=== PATIENT | female | born 1930 | race Caucasian/White ===

== ENCOUNTER → 2016-08-06 | Outpatient (REF) | payer MEDICARE, MEDICAID ==
[~2016-08-06] MED LIST: /AMLO25TA OR; /MOM400 OR; ALBU83IN INH; AMLO5TAB2 PO; ANUS2.5C2 PR; CLAR10CA3 PO; CLAR1TAB2 PO; COLA50CA3 OR; DULC5TAB PO; ELIQ5TAB PO; FERR220E2 PO; FURO20TA2 PO; GABA-279 PO; GLYB5TAB5 PO; IBUP-1114 PO; IBUP200T2 PO; KLOR10TA21 PO; KLOR1TAB69 PO; LASI40TA PO; LEVA250T PO; LEVA500T PO; LEVO88TA2 PO; LEVO88TA3 PO; LIQUSOL OU; LISI2.5T3 PO; LYRI75CA PO; MEDR4PAK PO; METF1000 PO; METF500T PO; METO50TA2 PO; MYCOSTATIN TOP; OPTI0.5D5 OU; POTASSIUM CL ER PO; PREPOI PR; RISP1TAB3 OR; SENO8.6T10 PO; SENO8.6T9 PO; SPIR25TA2 PO; SYNT112T2 PO; TRAM50TA2 PO; TUMS500C PO; TYLE325T5 PO; ULTR50TA PO; VITA10002 PO; VITA100072 PO; VITAMIN B12 INJ; VITAMINB IM; WOME5TAB PO
--- NOTE | 2016-08-06 13:14 | REP ---
Portable chest x-ray: Single view. History: Cough. Comparison chest x-ray October 08, 2015. Findings: The patient is status post multilevel cervical spine fusion. There is mild linear fibrosis in the left base. Heart is mildly enlarged. The aorta is calcific and tortuous. No infiltrate is seen. Impression: Cardiomegaly. Mild linear fibrosis left base. Otherwise no acute disease. Status post cervical spine fusion. Signed by Sreedhar Gilmore MD 08/06/2016 03:05 P
== END ==
PROVIDERS: ATTEND Nurse Practitioner Family
DX: I51.7 Cardiomegaly (principal); J84.10 Pulmonary fibrosis, unspecified; R05 Cough

== ENCOUNTER 2016-08-14 22:03 | Emergency (ER) | payer MEDICARE, MEDICAID ==
--- NOTE | 2016-08-15 03:00 | REPUSA ---
CLINICAL HISTORY: Trauma. TECHNIQUE: Multiple axial CT images were obtained through the brain without IV contrast material. COMMENTS: There is normal configuration of sella turcica. There are no intra or extra-axial collections. There is no mass effect or midline shift. There is no evidence of hematoma formation. No hydrocephalus is p resent. The ventricles are symmetrical. No abnormal calcifications are present. There is diffuse age-appropriate cerebellar and cerebral atrophy with proportionally dilated ventricl es and cortical sulci. There are bilateral periventricular and subcortical white matter hypolucencies compatible with mild c hronic microvascular disease. Otherwise, no significant focal abnormalities are seen either in the posterior fossa or supratentoria l compartment. IMPRESSION: 1. Age-appropriate cerebellar and cerebral atrophy. 2. Mild chronic microvascular disease. 3. No evidence of acute intracranial pathology. Thank you for your kind referral of this patient.
--- NOTE | 2016-08-15 07:13 | EDDOCDS ---
Physician Documentation [facility] Name: Sharita Mckinnon Age: 86 yrs Sex: Female : 1930 Arrival Date: 08/14/2016 Time: 22:03 Bed TR2 Private MD: Emelia Disposition: 08/14/16 23:22 Discharged to Home/Self Care. Impression: Contusion of lower back and pelvis. - Condition is Stable. - Discharge Instructions: Fall Prevention and Home Safety, Contusion, [id number]. - Medication Reconciliation, Local Pharmacy Hours form. - Follow up: Emelia; When: 2 - 3 days; Reason: Recheck today's complaints. - Problem is new. - Symptoms have improved. - Notes: You were seen in the ED after a fall onto the buttocks. Pelvis Xray showed no acute findings. As you are feeling better and are walking without complaint you may return home to follow up with your primary doctor for recheck - please call to arrange to be seen. Be sure you are only using a walker that works properly. Return to the ED for any new or worse pain, headache, confusion, vomiting, chest pain, trouble breathing, abdominal pain or any other concerns. Historical: - Allergies: seasonAL; - Home Meds: 1. acetaminophen 325 mg Oral tab 1 tab every 6 hours as needed 2. albuterol sulfate 2.5 mg /3 mL (0.083 %) Inhl nebu twice a day 3. albuterol sulfate 2.5 mg /3 mL (0.083 %) Inhl nebu every 6 hours as needed 4. Vitamin B-12 1,000 mcg Oral tab daily 5. tramadol 50 mg Oral tab 1 tab twice a day 6. spironolactone 25 mg Oral tab 0.5 tab once daily 7. optive solution 1 drop Daily as needed 8. Motrin Oral 400 mg as needed 9. metoprolol tartrate 50 mg Oral tab 1 tab 2 times per day 10. metformin 1,000 mg Oral tab 1 tab 2 times per day 11. Lyrica 75 mg Oral 1 cap 3 times per day 12. levothyroxine 88 mcg Oral tab 1 tab once daily 13. Lasix Oral 60 mg once daily 14. ferrous sulfate 220 mg (44 mg iron)/5 mL Oral soln daily 15. Eliquis 5 mg oral tab 1 tab 2 times per day 16. Claritin 10 mg Oral tab 1 tab once daily 17. Anusol Rectal 2.5 % three times per day as needed - PMHx: Diabetes - NIDDM: controlled; Hypertension; neuropathy; - Social history: Smoking status: Patient states was never smoker of tobacco. Race: White, Ethnicity: Not or No barriers to communication noted, Preferred Language: Jordanian. - : The pt / caregiver states he / she is on anticoagulants: Xarelto Home medication list is obtained from the facility MAR. - Exposure Risk Screening:: None identified. Vital Signs: 08/14 22:25 BP 135 / 60; Pulse 76; Resp 18; Temp 97.9(TE); Pulse Ox 97% on R/A; Weight 76.2 kg / nb2 167.99 lbs (R); Height 5 ft. 4 in. (162.56 cm) (R); Pain 0/10; 23:54 BP 117 / 51; Pulse 75; Resp 18; Temp 98.7(TE); Pulse Ox 95% on R/A; Pain 0/10; mdr 08/15 04:50 BP 136 / 60; Pulse 71; Resp 18; Temp 99.2(TE); Pulse Ox 96% on R/A; Pain 0/10; mdr 08/14 22:25 Body Mass Index 28.84 (76.20 kg, 162.56 cm) nb2 MDM: 08/14 22:23 Acetaminophen Tablet 650 mg PO once ordered. br1 22:25 Pelvis Ordered. EDMS 23:11 Ambulate Patient to Assess Patient Safety ordered. br1 23:23 Financial registration complete. zo 23:23 [facility] Payment Agreement was scanned into [employer] and attached to record. zo 08/15 02:12 CT Head Without Contrast Ordered. EDMS Administered Medications: 08/14 22:40 Drug: Acetaminophen 650 mg [acetaminophen 325 mg tablet (2 tabs)] Route: PO; cf2 Signatures: Dispatcher [employer] EDMS Nithin Quintero Brian, MD MD br1 Sana Santiago RN RN sls1 Roopa Braxton RN RN cf2 The chart was reviewed and I authenticate all verbal orders and agree with the evaluation and treatment provided.Attachments: 23:23 [facility] Payment Agreement zo MTDD
--- NOTE | 2016-08-15 07:13 | EDDOCDS ---
Nurse's Notes [facility] Name: Sharita Mckinnon Age: 86 yrs Sex: Female : 1930 Arrival Date: 08/14/2016 Time: 22:03 Bed TR2 Private MD: Emelia Diagnosis: Contusion of lower back and pelvis Presentation: 08/14 22:17 Presenting complaint: Patient states: "my walker got stuck and I fell. My butt and arms cf2 hurt". Denies head injury, moves all extremities. Presenting complaint: EMS states: Stable transport from Assisted living. Adult Sepsis Screening: The patient does not have new or worsening altered mentation. Patient's respiratory rate is less than 22. Systolic blood pressure is greater than 100. Patient has a qSOFA score of 0- Negative Sepsis Screen. Suicide/Homicide risk assessment- the patient denies having any suicidal and/or homicidal ideations and does not present with any other emotional, behavioral or mental health complaints. 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 Transition of care: patient was received from [facility]-assisted. 22:17 Acuity: KEATON Level 4 cf2 22:17 Method Of Arrival: Ambulance cf2 Triage Assessment: 22:20 General: Appears in no apparent distress, comfortable, Behavior is appropriate for age, cf2 cooperative. Pain: Location: buttocks. The patient is triaged at the bedside. See Assessment in Nurses Notes section of ED record. Musculoskeletal: No deficits noted. Historical: - Allergies: seasonAL; - Home Meds: 1. acetaminophen 325 mg Oral tab 1 tab every 6 hours as needed 2. albuterol sulfate 2.5 mg /3 mL (0.083 %) Inhl nebu twice a day 3. albuterol sulfate 2.5 mg /3 mL (0.083 %) Inhl nebu every 6 hours as needed 4. Vitamin B-12 1,000 mcg Oral tab daily 5. tramadol 50 mg Oral tab 1 tab twice a day 6. spironolactone 25 mg Oral tab 0.5 tab once daily 7. optive solution 1 drop Daily as needed 8. Motrin Oral 400 mg as needed 9. metoprolol tartrate 50 mg Oral tab 1 tab 2 times per day 10. metformin 1,000 mg Oral tab 1 tab 2 times per day 11. Lyrica 75 mg Oral 1 cap 3 times per day 12. levothyroxine 88 mcg Oral tab 1 tab once daily 13. Lasix Oral 60 mg once daily 14. ferrous sulfate 220 mg (44 mg iron)/5 mL Oral soln daily 15. Eliquis 5 mg oral tab 1 tab 2 times per day 16. Claritin 10 mg Oral tab 1 tab once daily 17. Anusol Rectal 2.5 % three times per day as needed - PMHx: Diabetes - NIDDM: controlled; Hypertension; neuropathy; - Social history: Smoking status: Patient states was never smoker of tobacco. Race: White, Ethnicity: Not or No barriers to communication noted, Preferred Language: Urdu. - : The pt / caregiver states he / she is on anticoagulants: Xarelto Home medication list is obtained from the facility MAR. - Exposure Risk Screening:: None identified. 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 Spoke with ED physician aware of requests, pt to have cat scan,. Vital Signs: 08/14 22:25 BP 135 / 60; Pulse 76; Resp 18; Temp 97.9(TE); Pulse Ox 97% on R/A; Weight 76.2 kg (R); nb2 Height 5 ft. 4 in. (162.56 cm) (R); Pain 0/10; 23:54 BP 117 / 51; Pulse 75; Resp 18; Temp 98.7(TE); Pulse Ox 95% on R/A; Pain 0/10; mdr 08/15 04:50 BP 136 / 60; Pulse 71; Resp 18; Temp 99.2(TE); Pulse Ox 96% on R/A; Pain 0/10; mdr 08/14 22:25 Body Mass Index 28.84 (76.20 kg, 162.56 cm) nb2 Vitals: 08/14 22:20 Log In Time N/A - ambulance arrival. cf2 ED Course: 22:03 Patient visited by Gloria Armstrong, Construction Technology Instructor. [facility] 22:03 Patient moved to 14 jl 22:04 Emelia is Private Physician. jlm 22:12 London Hinojosa MD is Attending Physician. br1 22:16 Roopa Braxton,CHRIS is Primary Nurse. cf2 22:16 Patient visited by Roopa Braxotn RN. cf2 22:17 Patient visited by Roopa Braxton RN. cf2 22:19 Triage Initiated cf2 22:22 Patient visited by London Hinojosa MD. br1 22:25 Placed in gown. Bed in low position. Call light in reach. Side rails up X2. Cardiac nb2 monitor on. Pulse ox on. NIBP on. 22:26 Patient visited by Medina Denny. nb2 23:18 Patient visited by London Hinojosa MD. br1 23:20 Emelia is Referral Physician. br1 23:23 [facility] Payment Agreement was scanned into [employer] and attached to record. zo 23:54 Patient visited by Nathaniel Salazar PCA. mdr 02 01:32 Patient visited by Roopa Braxton RN. cf2 03:32 CT Head Without Contrast Returned. EDMS 03:37 Patient visited by Roopa Braxton RN. cf2 05:01 Patient moved to [facility] mdr 05:08 Patient visited by Nathaniel Salazar PCA. mdr Administered Medications: 08/14 22:40 Drug: Acetaminophen 650 mg [acetaminophen 325 mg tablet (2 tabs)] Route: PO; cf2 Order Results: Radiology Order: CT Head Without Contrast Test: CT Head Without Contrast REASON FOR EXAMINATION: Trauma; ; CLINICAL HISTORY: Trauma.; TECHNIQUE: Multiple axial CT images were obtained through the brain without IV contrast material.; COMMENTS:; There is normal configuration of sella turcica. There are no intra or extra-axial collections. There; is no mass effect or midline shift. There is no evidence of hematoma formation. No hydrocephalus is p; resent. The ventricles are symmetrical. No abnormal calcifications are present.; There is diffuse age-appropriate cerebellar and cerebral atrophy with proportionally dilated ventricl; es and cortical sulci.; There are bilateral periventricular and subcortical white matter hypolucencies compatible with mild c; hronic microvascular disease.; Otherwise, no significant focal abnormalities are seen either in the posterior fossa or supratentoria; l compartment.; IMPRESSION:; 1. Age-appropriate cerebellar and cerebral atrophy.; 2. Mild chronic microvascular disease.; 3. No evidence of acute intracranial pathology.; Thank you for your kind referral of this patient.; ; ; Outcome: 23:22 Discharge ordered by Provider. br1 08/15 04:56 Discharge Assessment: Patient awake, alert and oriented x 3. No cognitive and/or sls1 functional deficits noted. Patient verbalized understanding of disposition instructions. patient administered narcotics - no. The following High Risk Discharge criteria are identified: None. Discharged to jail. Transfer form completed. Condition: stable. Discharge instructions given to patient, jail, Instructed on discharge instructions, follow up and referral plans. Demonstrated understanding of instructions, Pt was receptive of discharge instructions/ teaching. CT Study completed. Property :Personal belongings accompany Pt. 07:12 Patient left the ED. sls1 Signatures: Dispatcher [employer] EDMS Nithin Quintero Brian, MD MD br1 Sana Santiago RN RN sls1 Gloria Armstrong, Construction Technology Instructor Unit Nathaniel Roth, CARLOS EDUARDO LANG PATH THERAPIST Roopa Tena,RN RN cf2 Medina Denny2 MTDJohn
--- NOTE | 2016-08-15 07:57 | REP ---
Clinical: Trauma. Technique: Single AP view of the pelvis. Findings: Diffuse age related degenerative changes are appreciated. No acute fracture or dislocation. Surrounding soft tissues unremarkable. Impression: Age-related changes. No acute fracture or dislocation. Signed by Rajiv Posadas MD 08/15/2016 07:48 A
--- NOTE | 2016-08-17 08:13 | EDDOCDS ---
Nurse's Notes [facility] Name: Sharita Mckinnon Age: 86 yrs Sex: Female : 1930 Arrival Date: 08/14/2016 Time: 22:03 Bed TR2 Private MD: Emelia Diagnosis: Contusion of lower back and pelvis Presentation: 08/14 22:17 Presenting complaint: Patient states: "my walker got stuck and I fell. My butt and arms cf2 hurt". Denies head injury, moves all extremities. Presenting complaint: EMS states: Stable transport from Assisted living. Adult Sepsis Screening: The patient does not have new or worsening altered mentation. Patient's respiratory rate is less than 22. Systolic blood pressure is greater than 100. Patient has a qSOFA score of 0- Negative Sepsis Screen. Suicide/Homicide risk assessment- the patient denies having any suicidal and/or homicidal ideations and does not present with any other emotional, behavioral or mental health complaints. 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 Transition of care: patient was received from [facility]-assisted. 22:17 Acuity: KEATON Level 4 cf2 22:17 Method Of Arrival: Ambulance cf2 Triage Assessment: 22:20 General: Appears in no apparent distress, comfortable, Behavior is appropriate for age, cf2 cooperative. Pain: Location: buttocks. The patient is triaged at the bedside. See Assessment in Nurses Notes section of ED record. Musculoskeletal: No deficits noted. Historical: - Allergies: seasonAL; - Home Meds: 1. acetaminophen 325 mg Oral tab 1 tab every 6 hours as needed 2. albuterol sulfate 2.5 mg /3 mL (0.083 %) Inhl nebu twice a day 3. albuterol sulfate 2.5 mg /3 mL (0.083 %) Inhl nebu every 6 hours as needed 4. Vitamin B-12 1,000 mcg Oral tab daily 5. tramadol 50 mg Oral tab 1 tab twice a day 6. spironolactone 25 mg Oral tab 0.5 tab once daily 7. optive solution 1 drop Daily as needed 8. Motrin Oral 400 mg as needed 9. metoprolol tartrate 50 mg Oral tab 1 tab 2 times per day 10. metformin 1,000 mg Oral tab 1 tab 2 times per day 11. Lyrica 75 mg Oral 1 cap 3 times per day 12. levothyroxine 88 mcg Oral tab 1 tab once daily 13. Lasix Oral 60 mg once daily 14. ferrous sulfate 220 mg (44 mg iron)/5 mL Oral soln daily 15. Eliquis 5 mg oral tab 1 tab 2 times per day 16. Claritin 10 mg Oral tab 1 tab once daily 17. Anusol Rectal 2.5 % three times per day as needed - PMHx: Diabetes - NIDDM: controlled; Hypertension; neuropathy; - Social history: Smoking status: Patient states was never smoker of tobacco. Race: White, Ethnicity: Not or No barriers to communication noted, Preferred Language: Wolof. - : The pt / caregiver states he / she is on anticoagulants: Xarelto Home medication list is obtained from the facility MAR. - Exposure Risk Screening:: None identified. 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 Spoke with ED physician aware of requests, pt to have cat scan,. Vital Signs: 08/14 22:25 BP 135 / 60; Pulse 76; Resp 18; Temp 97.9(TE); Pulse Ox 97% on R/A; Weight 76.2 kg (R); nb2 Height 5 ft. 4 in. (162.56 cm) (R); Pain 0/10; 23:54 BP 117 / 51; Pulse 75; Resp 18; Temp 98.7(TE); Pulse Ox 95% on R/A; Pain 0/10; mdr 08/15 04:50 BP 136 / 60; Pulse 71; Resp 18; Temp 99.2(TE); Pulse Ox 96% on R/A; Pain 0/10; mdr 08/14 22:25 Body Mass Index 28.84 (76.20 kg, 162.56 cm) nb2 Vitals: 08/14 22:20 Log In Time N/A - ambulance arrival. cf2 ED Course: 22:03 Patient visited by Gloria Armstrong, Permit Agent. [facility] 22:03 Patient moved to 14 jl 22:04 Emelia is Private Physician. jlm 22:12 London Hinojosa MD is Attending Physician. br1 22:16 Roopa Braxton,CHRIS is Primary Nurse. cf2 22:16 Patient visited by Roopa Braxton RN. cf2 22:17 Patient visited by Roopa Braxton RN. cf2 22:19 Triage Initiated cf2 22:22 Patient visited by London Hinojosa MD. br1 22:25 Placed in gown. Bed in low position. Call light in reach. Side rails up X2. Cardiac nb2 monitor on. Pulse ox on. NIBP on. 22:26 Patient visited by Medina Denny. nb2 23:18 Patient visited by London Hinojosa MD. br1 23:20 Emelia is Referral Physician. br1 23:23 [facility] Payment Agreement was scanned into [employer] and attached to record. zo 23:54 Patient visited by Nathaniel Salazar PCA. mdr 08/15 01:32 Patient visited by Roopa Braxton RN. cf2 03:32 CT Head Without Contrast Returned. EDMS 03:37 Patient visited by Roopa Braxton RN. cf2 05:01 Patient moved to TR2 mdr 05:08 Patient visited by Nathaniel Salazar PCA. mdr 08:16 Pelvis Returned. EDMS 11:27 T-Sheet-- Draft Copy was scanned into [employer] and attached to record. gb 15:11 PCR was scanned into [employer] and attached to record. gb Administered Medications: 08/14 22:40 Drug: Acetaminophen 650 mg [acetaminophen 325 mg tablet (2 tabs)] Route: PO; cf2 Order Results: Radiology Order: Pelvis Test: Pelvis REASON FOR EXAMINATION: Trauma; Clinical: Trauma.; ; Technique: Single AP view of the pelvis.; ; Findings:; Diffuse age related degenerative changes are appreciated. No acute fracture or; dislocation. Surrounding soft tissues unremarkable.; ; Impression:; Age-related changes. No acute fracture or dislocation.; ; ; Signed by; Rajiv Posadas MD 08/15/2016 07:48 A; Radiology Order: CT Head Without Contrast Test: CT Head Without Contrast REASON FOR EXAMINATION: Trauma; ; CLINICAL HISTORY: Trauma.; TECHNIQUE: Multiple axial CT images were obtained through the brain without IV contrast material.; COMMENTS:; There is normal configuration of sella turcica. There are no intra or extra-axial collections. There; is no mass effect or midline shift. There is no evidence of hematoma formation. No hydrocephalus is p; resent. The ventricles are symmetrical. No abnormal calcifications are present.; There is diffuse age-appropriate cerebellar and cerebral atrophy with proportionally dilated ventricl; es and cortical sulci.; There are bilateral periventricular and subcortical white matter hypolucencies compatible with mild c; hronic microvascular disease.; Otherwise, no significant focal abnormalities are seen either in the posterior fossa or supratentoria; l compartment.; IMPRESSION:; 1. Age-appropriate cerebellar and cerebral atrophy.; 2. Mild chronic microvascular disease.; 3. No evidence of acute intracranial pathology.; Thank you for your kind referral of this patient.; ; ; Outcome: 23:22 Discharge ordered by Provider. br1 08/15 04:56 Discharge Assessment: Patient awake, alert and oriented x 3. No cognitive and/or sls1 functional deficits noted. Patient verbalized understanding of disposition instructions. patient administered narcotics - no. The following High Risk Discharge criteria are identified: None. Discharged to [facility]. Transfer form completed. Condition: stable. Discharge instructions given to patient, [facility], Instructed on discharge instructions, follow up and referral plans. Demonstrated understanding of instructions, Pt was receptive of discharge instructions/ teaching. CT Study completed. Property :Personal belongings accompany Pt. 07:12 Patient left the ED. sls1 Signatures: Dispatcher [employer] EDMS Tata Beard, Reg Reg Nithin Leahy Brian, MD MD br1 Sana Santiago, RN RN sls1 Gloria Armstrong, Permit Agent Unit Nathaniel Roth, CARLOS EDUARDO PHYTOPATHOLOGY TEACHER Roopa Tena,RN RN cf2 Medina Denny2 Chart Complete MTDD
--- NOTE | 2016-08-17 08:13 | EDDOCDS ---
Physician Documentation [facility] Name: Sharita Mckinnon Age: 86 yrs Sex: Female : 1930 Arrival Date: 08/14/2016 Time: 22:03 Bed TR2 Private MD: Emelia Disposition: 08/14/16 23:22 Discharged to Home/Self Care. Impression: Contusion of lower back and pelvis. - Condition is Stable. - Discharge Instructions: Fall Prevention and Home Safety, Contusion, [id number]. - Medication Reconciliation, Local Pharmacy Hours form. - Follow up: Emelia; When: 2 - 3 days; Reason: Recheck today's complaints. - Problem is new. - Symptoms have improved. - Notes: You were seen in the ED after a fall onto the buttocks. Pelvis Xray showed no acute findings. As you are feeling better and are walking without complaint you may return home to follow up with your primary doctor for recheck - please call to arrange to be seen. Be sure you are only using a walker that works properly. Return to the ED for any new or worse pain, headache, confusion, vomiting, chest pain, trouble breathing, abdominal pain or any other concerns. Historical: - Allergies: seasonAL; - Home Meds: 1. acetaminophen 325 mg Oral tab 1 tab every 6 hours as needed 2. albuterol sulfate 2.5 mg /3 mL (0.083 %) Inhl nebu twice a day 3. albuterol sulfate 2.5 mg /3 mL (0.083 %) Inhl nebu every 6 hours as needed 4. Vitamin B-12 1,000 mcg Oral tab daily 5. tramadol 50 mg Oral tab 1 tab twice a day 6. spironolactone 25 mg Oral tab 0.5 tab once daily 7. optive solution 1 drop Daily as needed 8. Motrin Oral 400 mg as needed 9. metoprolol tartrate 50 mg Oral tab 1 tab 2 times per day 10. metformin 1,000 mg Oral tab 1 tab 2 times per day 11. Lyrica 75 mg Oral 1 cap 3 times per day 12. levothyroxine 88 mcg Oral tab 1 tab once daily 13. Lasix Oral 60 mg once daily 14. ferrous sulfate 220 mg (44 mg iron)/5 mL Oral soln daily 15. Eliquis 5 mg oral tab 1 tab 2 times per day 16. Claritin 10 mg Oral tab 1 tab once daily 17. Anusol Rectal 2.5 % three times per day as needed - PMHx: Diabetes - NIDDM: controlled; Hypertension; neuropathy; - Social history: Smoking status: Patient states was never smoker of tobacco. Race: White, Ethnicity: Not or No barriers to communication noted, Preferred Language: Namibian. - : The pt / caregiver states he / she is on anticoagulants: Xarelto Home medication list is obtained from the facility MAR. - Exposure Risk Screening:: None identified. Vital Signs: 08/14 22:25 BP 135 / 60; Pulse 76; Resp 18; Temp 97.9(TE); Pulse Ox 97% on R/A; Weight 76.2 kg / nb2 167.99 lbs (R); Height 5 ft. 4 in. (162.56 cm) (R); Pain 0/10; 23:54 BP 117 / 51; Pulse 75; Resp 18; Temp 98.7(TE); Pulse Ox 95% on R/A; Pain 0/10; mdr 08/15 04:50 BP 136 / 60; Pulse 71; Resp 18; Temp 99.2(TE); Pulse Ox 96% on R/A; Pain 0/10; mdr 08/14 22:25 Body Mass Index 28.84 (76.20 kg, 162.56 cm) nb2 MDM: 08/14 22:23 Acetaminophen Tablet 650 mg PO once ordered. br1 22:25 Pelvis Ordered. EDMS 23:11 Ambulate Patient to Assess Patient Safety ordered. br1 23:23 Financial registration complete. zo 23:23 [facility] Payment Agreement was scanned into [employer] and attached to record. zo 08/15 02:12 CT Head Without Contrast Ordered. EDMS 11:27 T-Sheet-- Draft Copy was scanned into [employer] and attached to record. gb 15:11 PCR was scanned into [employer] and attached to record. gb Administered Medications: 08/14 22:40 Drug: Acetaminophen 650 mg [acetaminophen 325 mg tablet (2 tabs)] Route: PO; cf2 Signatures: Dispatcher [employer] EDMS Tata Beard, Nithin Claudio Brian, MD MD br1 Sana Santiago RN RN sls1 Roopa BraxtonRN RN cf2 The chart was reviewed and I authenticate all verbal orders and agree with the evaluation and treatment provided.Attachments: 23:23 [facility] Payment Agreement zo 08/15 11:27 T-Sheet-- Draft Copy gb Chart Complete MTDD
--- NOTE | 2016-08-17 08:13 | EDDOCDS ---
Physician Documentation [facility] Name: Sharita Mckinnon Age: 86 yrs Sex: Female : 1930 Arrival Date: 08/14/2016 Time: 22:03 Bed TR2 Private MD: Emelia Disposition: 08/14/16 23:22 Discharged to Home/Self Care. Impression: Contusion of lower back and pelvis. - Condition is Stable. - Discharge Instructions: Fall Prevention and Home Safety, Contusion, [id number]. - Medication Reconciliation, Local Pharmacy Hours form. - Follow up: Emelia; When: 2 - 3 days; Reason: Recheck today's complaints. - Problem is new. - Symptoms have improved. - Notes: You were seen in the ED after a fall onto the buttocks. Pelvis Xray showed no acute findings. As you are feeling better and are walking without complaint you may return home to follow up with your primary doctor for recheck - please call to arrange to be seen. Be sure you are only using a walker that works properly. Return to the ED for any new or worse pain, headache, confusion, vomiting, chest pain, trouble breathing, abdominal pain or any other concerns. Historical: - Allergies: seasonAL; - Home Meds: 1. acetaminophen 325 mg Oral tab 1 tab every 6 hours as needed 2. albuterol sulfate 2.5 mg /3 mL (0.083 %) Inhl nebu twice a day 3. albuterol sulfate 2.5 mg /3 mL (0.083 %) Inhl nebu every 6 hours as needed 4. Vitamin B-12 1,000 mcg Oral tab daily 5. tramadol 50 mg Oral tab 1 tab twice a day 6. spironolactone 25 mg Oral tab 0.5 tab once daily 7. optive solution 1 drop Daily as needed 8. Motrin Oral 400 mg as needed 9. metoprolol tartrate 50 mg Oral tab 1 tab 2 times per day 10. metformin 1,000 mg Oral tab 1 tab 2 times per day 11. Lyrica 75 mg Oral 1 cap 3 times per day 12. levothyroxine 88 mcg Oral tab 1 tab once daily 13. Lasix Oral 60 mg once daily 14. ferrous sulfate 220 mg (44 mg iron)/5 mL Oral soln daily 15. Eliquis 5 mg oral tab 1 tab 2 times per day 16. Claritin 10 mg Oral tab 1 tab once daily 17. Anusol Rectal 2.5 % three times per day as needed - PMHx: Diabetes - NIDDM: controlled; Hypertension; neuropathy; - Social history: Smoking status: Patient states was never smoker of tobacco. Race: White, Ethnicity: Not or No barriers to communication noted, Preferred Language: Citizen Of [place]. - : The pt / caregiver states he / she is on anticoagulants: Xarelto Home medication list is obtained from the facility MAR. - Exposure Risk Screening:: None identified. Vital Signs: 08/14 22:25 BP 135 / 60; Pulse 76; Resp 18; Temp 97.9(TE); Pulse Ox 97% on R/A; Weight 76.2 kg / nb2 167.99 lbs (R); Height 5 ft. 4 in. (162.56 cm) (R); Pain 0/10; 23:54 BP 117 / 51; Pulse 75; Resp 18; Temp 98.7(TE); Pulse Ox 95% on R/A; Pain 0/10; mdr 08/15 04:50 BP 136 / 60; Pulse 71; Resp 18; Temp 99.2(TE); Pulse Ox 96% on R/A; Pain 0/10; mdr 08/14 22:25 Body Mass Index 28.84 (76.20 kg, 162.56 cm) nb2 MDM: 08/14 22:23 Acetaminophen Tablet 650 mg PO once ordered. br1 22:25 Pelvis Ordered. EDMS 23:11 Ambulate Patient to Assess Patient Safety ordered. br1 23:23 Financial registration complete. zo 23:23 [facility] Payment Agreement was scanned into [employer] and attached to record. zo 08/15 02:12 CT Head Without Contrast Ordered. EDMS 11:27 T-Sheet-- Draft Copy was scanned into [employer] and attached to record. gb 15:11 PCR was scanned into [employer] and attached to record. gb Administered Medications: 08/14 22:40 Drug: Acetaminophen 650 mg [acetaminophen 325 mg tablet (2 tabs)] Route: PO; cf2 Signatures: Dispatcher [employer] EDMS Tata Beard, Nithin Claudio Brian, MD MD br1 Sana Santiago RN RN [id number] Roopa BraxtonRN RN cf2 The chart was reviewed and I authenticate all verbal orders and agree with the evaluation and treatment provided.Attachments: 23:23 [facility] Payment Agreement zo 08/15 11:27 T-Sheet-- Draft Copy gb Chart Complete MTDD
== END 2016-08-15 07:12 | disposition home or self-care (01) ==
LOC: M ED 22:03
DX: S30.0XXA Contusion of lower back and pelvis, initial encounter (principal); W19.XXXA Unspecified fall, initial encounter; Y92.129 Unspecified place in nursing home as the place of occurrence of the external cause; Y93.01 Activity, walking, marching and hiking; Y99.8 Other external cause status; E11.42 Type 2 diabetes mellitus with diabetic polyneuropathy; I10 Essential (primary) hypertension; Z79.899 Other long term (current) drug therapy; Z79.01 Long term (current) use of anticoagulants; Z79.84 Long term (current) use of oral hypoglycemic drugs; J30.9 Allergic rhinitis, unspecified

== ENCOUNTER 2016-08-28 11:55 | Inpatient (IN) | payer MEDICARE, MEDICAID ==
[~2016-08-28] VITALS: Ht 162.6 cm; Wt 78.0 kg
[2016-08-28] MEDS ORDERED: XARE20TA PO (12:20)
[2016-08-28] MEDS ORDERED: TYLE325T5 PO (12:24)
[2016-08-28] MEDS ORDERED: VITA10002 PO (12:27)
--- NOTE | 2016-08-28 13:18 | REP ---
CHEST, TWO VIEWS: Two views of the chest are performed and compared to prior study of 10/08/2015. There is mild liner fibroatelectatic change in each lung base without evidence of acute infiltrate. There is mild cardiomegaly. There is mild pulmonary venous hypertension. There is some calcification of the thoracic aorta. The mediastinal silhouette is unremarkable. There are mild degenerative changes of the spine. IMPRESSION: Cardiomegaly. Pulmonary venous hypertension. Bibasilar fibroatelectatic change without evidence of acute infiltrate. Signed by Guanaco Montejo MD 08/28/2016 03:55 P
[2016-08-28 13:36] LABS: ALBUMIN 3.4 GM/DL (3.2-5.2); ALBUMIN/GLOBULIN RATIO 0.77 (1.00-1.93); ALKALINE PHOSPHATASE 38 U/L (45-117); ALT/SGPT 11 U/L (12-78); ANION GAP 9 MEQ/L (8-16); AST/SGOT 12 U/L (15-37); BILIRUBIN,TOTAL 0.2 MG/DL (0.2-1.0); BLOOD UREA NITROGEN 40 MG/DL (7-18); CALCIUM LEVEL 8.9 MG/DL (8.8-10.2); CARBON DIOXIDE LEVEL 29 MEQ/L (21-32); CHLORIDE LEVEL 96 MEQ/L (98-107); CREATININE FOR GFR 1.23 MG/DL (0.55-1.02); GLOMERULAR FILTRATION RATE 43.9 (>32); GLUCOSE, FASTING 127 MG/DL (83-110); POTASSIUM SERUM 4.2 MEQ/L (3.5-5.1); SODIUM LEVEL 134 MEQ/L (136-145); T UPTAKE 35 % (30-39); TOTAL PROTEIN 7.8 GM/DL (6.4-8.2)
[2016-08-28 14:00] LABS: BASO # 0.1 K/mm3 (0.0-0.2); BASO % 0.7 % (0.0-1.0); EOS # 0.2 K/mm3 (0.0-0.50); EOS % 2.3 % (0.0-3.0); LARGE UNSTAINED CELL # 0.6 K/mm3 (0.0-0.4); LARGE UNSTAINED CELL % 6.1 % (0.0-4.0); LYMPH # 2.1 K/mm3 (1.5-4.5); LYMPH % 20.1 % (24.0-44.0); MEAN CORPUSCULAR HGB CONC 26.6 g/dl (32.0-36.5); MEAN CORPUSCULAR VOLUME 71.5 fl (80.0-96.0); MONO # 0.8 K/mm3 (0.0-0.8); MONO % 7.3 % (0.0-5.0); NEUTROPHILS # 6.7 K/mm3 (1.8-7.7); NEUTROPHILS % 63.5 % (36.0-66.0); PLATELET COUNT, AUTOMATED 247 k/mm3 (150-450); RED CELL DISTRIBUTION WIDTH 17.2 % (11.5-14.5)
[2016-08-28 14:10] LABS: ADD MORPHOLOGY? YES
[2016-08-28 14:20] LABS: WHITE BLOOD COUNT 10.6 K/mm3 (4.0-10.0)
[2016-08-28 14:35] LABS: ANISOCYTOSIS 1+; HYPOCHROMASIA 3+; MICROCYTOSIS 2+
[2016-08-28] MEDS ORDERED: FUROSEMIDE 20 MG/2 ML VIAL (J1940) IV ONE (15:15)
[2016-08-28] MEDS ORDERED: FUROSEMIDE 20 MG/2 ML VIAL (J1940) IV SCH (15:15)
[2016-08-28] MEDS ORDERED: ARTISOL2 OU (15:23)
[2016-08-28] MEDS ORDERED: ZOFR20TA PO (15:23)
[2016-08-28] MEDS ORDERED: KETO2CR TOP (15:23)
[2016-08-28] MEDS ORDERED: DOCU100C PO (15:23)
[2016-08-28] MEDS ORDERED: LYRI100C10 PO (15:23)
[2016-08-28] MEDS ORDERED: ANUS2.5C2 PR (15:34)
[2016-08-28] MEDS ORDERED: DULC5TAB PO (15:34)
[2016-08-28] MEDS ORDERED: ACET-654 PO (15:34)
[2016-08-28] MEDS ORDERED: ALBU83IN INH (15:34)
[2016-08-28] MEDS ORDERED: FURO40TA2 PO (15:34)
[2016-08-28 16:39] LABS: FERRITIN 2 NG/ML (8-252); PERCENT SATURATION 4.8 % (13.2-37.4); TOTAL IRON BINDING CAPACITY 478 UG/DL (250-450)
[2016-08-28 16:45] LABS: FOLATE 13.3 NG/ML; RETICULOCYTE ABSOLUTE ADVIA212 85 x10(9)/L (17-77); VITAMIN B12 LEVEL 844 PG/ML
[2016-08-28 16:47] LABS: REASON FOR REVIEW COMPREHENSIVE REVIEW
[2016-08-28] MEDS ORDERED: ONDANSETRON 4 MG TAB (S0181) PO PRN (18:30)
[2016-08-28] MEDS ORDERED: DOCUSATE SODIUM 100 MG CAP PO PRN (18:30)
[2016-08-28] MEDS ORDERED: BISACODYL 5 MG TAB PO PRN (18:30)
[2016-08-28] MEDS ORDERED: ACETAMINOPHEN 325 MG TAB PO PRN (18:30)
[2016-08-28] MEDS ORDERED: ANUSOL HC CREAM 30GM PR PRN (18:30)
--- NOTE | 2016-08-28 18:48 | HPEPDOC ---
Medical History and Physical Date of Admission Aug 28, 2016 at 18:26 History and Physical PRIMARY CARE PROVIDER: Dr. Kapoor CHIEF COMPLAINT: Dizziness HISTORY OF PRESENT ILLNESS: Obtained from patient's daughter Patient is a 86-year-old female who presents to emergency department with chief complaint of dizziness. Patient's daughter says that approximately 2-3 weeks ago patient had a bad upper respiratory infection, they suspect influenza. Since that time patient has had a increased and worsening dizziness, swelling, appearing pale and feeling weak. She says patient has had recent falls using her walker. She reports last night the patient needed assistance getting into bed, this is a change from her baseline. Patient has a history of bleeding hemorrhoids but none reported in the last month or so. No reported bright red or dark tarry bowel movements, vaginal bleeding. Rectal examination performed by emergency department showed small external hemorrhoid which was not bleeding. Guaiac negative ALLERGIES: Seasonal, no medical allergies PAST MEDICAL HISTORY: Spinal stenosis, diabetes mellitus, hypertension, COPD, hypothyroidism, atrial fibrillation, hemorrhoids, neuropathy PAST SURGICAL HISTORY: Hysterectomy, back surgery SOCIAL HISTORY: Patient lives at [facility]. If she is a former smoker, quit 13 years ago, smoked for approximately 60 years prior to quitting. Denies alcohol or recreational drug use CODE STATUS: DNR/DNI REVIEW OF SYSTEMS: Constitutional: denies fevers, chills, night sweats HEENT: Head: Positive for dizziness, lightheadedness. Eyes: denies blurry vision , double vision. Ears: Positive for chronic hearing loss. Nose: Positive for chronic rhinorrhea, denies sinus pain or pressure. Throat: Positive for cough which is productive for clear phlegm (recent upper respiratory infection), denies difficulty swallowing Cardiovascular: denies chest discomfort/pain, palpitations Respiratory: Positive for shortness of breath, more than at patient's baseline Gastrointestinal: Positive for history of hemorrhoids, denies nausea, vomiting, diarrhea, constipation, abdominal pain, melena, hematochezia : Positive for urinary incontinence Musculoskeletal: Positive for pain in hands Neurological: Positive for neuropathy, pain in hands and legs Lymphatics: denies palpable lymph nodes or swollen glands Integumentary: denies any cuts, rashes, bruises Endocrine: Positive for polydipsia PHYSICAL EXAMINATION: Vitals: Temperature 98.1, pulse 84, respiratory rate 18, blood pressure 119/55 General: Patient awake, pleasantly confused, verbal and able to answer questions with some difficulty secondary to severe hearing loss HEENT: Head: normocephalic, atraumatic. Eyes: pupils equally reactive to light , conjunctiva are pink, sclera are nonicteric. Ears: Right tympanic membrane unobscured by ear wax, left tympanic membranes clear to inspection with light reflex present. Throat: buccal mucosa is pink and moist with no lesions in the oropharynx Respiratory: Bilateral wheezes to auscultation Cardiovascular: regular rate and rhythm, with no murmurs, rubs or gallops. Abdomen: soft, nontender, nondistended, no hepatosplenomegaly appreciated. Bowel sounds present. Extremities: 5/5 strength in upper and lower extremities bilaterally, bilateral lower extremity pitting edema to below knee Neurological: sensation intact and symmetrical in upper and lower extremities bilaterally Lymphatics: no palpable lymph nodes, swollen glands Integumentary: Pale extremities, pale hands Vascular: pulses palpable and symmetrical in upper and lower extremities bilaterally LABORATORY DATA: CBC: White blood cells 10.6, hemoglobin and hematocrit 5.5/20.7, platelets 247 Reticulocyte count 85, percent reticulocytes 2.9 Chemistry: Sodium 134, potassium 4.2, chloride 96, carbon dioxide 29, BUN or D, creatinine 1.23, glucose 127, calcium 8.9 Liver profile: AST 12, ALT 11, alkaline phosphatase 38, albumin 3.4, total protein 7.8, total bilirubin 0.2 Iron studies: Iron 23, TIBC 478, transferrin percent saturation 4.8%, ferritin 2 Cardiac marker panel: Total creatinine kinase 31, CK-MB 1.0, CK-MB relative index 3.22, troponin I less than 0.02 BNP 541 Vitamin B12 844 Folate 13.3 TSH 1.860, free T4 2 0.5, T4 7.0, T3 uptake 35 UA: Straw color, appearance clear, pH 6.0, specific gravity 1.006, 0.2 urobilinogen, 3+ leukocyte esterase, 6 white blood cells, 2 red blood cells, 1 squamous epithelial cell, small amount of mucus, small uric acid crystals. Negative for all of the following: Protein, glucose, ketones, blood, nitrites, bilirubin, bacteria RADIOLOGY: Chest x-ray: Cardiomegaly, pulmonary venous hypertension, basilar fibro- atelectatic change without evidence for acute infiltrate PATHOLOGY: Peripheral smear pending ASSESSMENT: Patient is a 86-year-old female with new anemia. Patient will require admission for blood transfusion, further evaluation. PLAN: #1: Anemia: Suspect iron deficiency anemia Admit patient to PCU under care of Dr. Yeung. Patient will be further evaluated with stool for occult blood. Patient was consented in order was placed for patient to receive 2 units of packed red blood cells. Order placed for Protonix 40 mg IV daily. Check a daily CBC, BMP. Peripheral smear pending. #2: Weakness: Suspect secondary to anemia. Order placed for physical therapy to evaluate and treat #3: Acute kidney injury: Creatinine of 1.23, up from a baseline of approximately 1. Continue to monitor #4: Diabetes mellitus: We'll hold patient's metformin secondary to acute kidney injury, patient can be placed on sliding scale insulin if necessary #5: Hypertension: Orders placed for home dose of Lasix 60 mg by mouth daily, Lopressor 50 mg by mouth twice a day, spironolactone 25 mg by mouth daily #6: COPD: Orders placed for albuterol sulfate 2.5 mg inhalation every 4 hours scheduled, every 2 hours when necessary #7: Hypothyroidism: Order placed for home dose of Synthroid 88 mcg by mouth daily #8: Atrial fibrillation: Suspect paroxysmal atrial fibrillation, patient was sinus on monitor in EKG. Patient on anticoagulation with Xarelto. We will hold Xarelto is secondary to anemia #9: Seasonal allergies: Order placed for home dose of loratadine 10 mg by mouth every afternoon #10: Hemorrhoids: Order placed for home dose of hydrocortisone 1 dose topical 3 times a day when necessary, bisacodyl 5 mg by mouth daily when necessary for constipation, docusate 100 mg by mouth twice a day when necessary for constipation #11: Neuropathy: Orders placed for home dose of Lyrica 100 mg by mouth 3 times a day, tramadol 50 mg by mouth daily at bedtime #12: DVT prophylaxis: Orders placed for mechanical prophylaxis I have both independently examined this patient as well as reviewed the dictated note. I have discussed in detail with the resident the findings and plan of treatment as documented in the residents note. I will continue to follow the patient and offer further guidance to the patients care as necessary during this hospital stay. Vital Signs Temperature 98.1, pulse 84, respiratory rate 18, blood pressure 119/55 Home Medications Scheduled (Artificial Tears 0.1-0.3 %) 1 Erika Erika 2 DROP OU BID Acetaminophen (Tylenol) 325 Mg Tab 650 MG PO TID Albuterol Sulfate (Albuterol Sulfate) 2.5 Mg/3 Ml Nebu 2.5 MG INH BID Cyanocobalamin (Vitamin B-12) 1,000 Mcg Tab 1,000 MCG PO DAILY Furosemide (Furosemide) 40 Mg Tab 60 MG PO DAILY Ketoconazole (Ketoconazole) 2 % Cre 1 DOSE TOP 2XW BID ON SUN & SAT-APPLY UNDER GROIN FOLDS AND BREASTS Levothyroxine Sodium (Synthroid) 88 Mcg Tab 88 MCG PO DAILY Loratadine (Claritin) 10 Mg Tab 10 MG PO QPM TAKE AT 1700 Metformin Hydrochloride (Metformin HCl) 1,000 Mg Tab 1,000 MG PO BID TAKES AT 1200 & 1600 Metoprolol Tartrate (Metoprolol Tartrate) 50 Mg Tab 50 MG PO BID Pregabalin (Lyrica) 100 Mg Cap 100 MG PO TID Rivaroxaban (Xarelto) 20 Mg Tab 20 MG PO QPM Spironolactone (Spironolactone) 25 Mg Tab 25 MG PO DAILY Tramadol HCl (Tramadol HCl) 50 Mg Tab 50 MG PO QHS Scheduled PRN (Refresh Optive 0.5-0.9 %) 1 Adryan Adryan 1 ADRYAN OU DAILY PRN PRN DRY EYES Acetaminophen (Acetaminophen) 325 Mg Tab 650 MG PO DAILY PRN PRN PAIN Albuterol Sulfate (Albuterol Sulfate) 2.5 Mg/3 Ml Nebu 2.5 MG INH Q6H PRN PRN SOB/WHEEZING Bisacodyl (Dulcolax) 5 Mg Tab 5 MG PO DAILY PRN PRN CONSTIPATION Docusate Sodium (Docusate Sodium) 100 Mg Cap 100 MG PO BID PRN PRN CONSTIPATION Hydrocortisone (Anusol-Hc) 2.5 % Cre 1 DOSE NC TID PRN PRN ANORECTAL PREPARATIONS Ondansetron HCl (Zofran) 4 Mg Tab 4 MG PO TID PRN PRN NAUSEA Allergies Coded Allergies: No Known Allergies (Unverified , 12/06/03) SHREYA CHONG DO Aug 28, 2016 18:48 GEO AREVALO MD Aug 31, 2016 17:49
[2016-08-28] MEDS: ACETAMINOPHEN 325 MG TAB PO SCH (21:13)
[2016-08-28] MEDS: traMADol 50 MG TAB PO SCH (21:14)
[2016-08-28 21:45] VITALS: BP 162/71
[2016-08-28 22:30] VITALS: BP 165/62
[2016-08-28] MEDS: PANTOPRAZOLE 40MG INJ (PROTONIX) (C9113) IV SCH (22:31)
[2016-08-28] MEDS: METOPROLOL TART 50 MG TAB PO SCH (22:32)
[2016-08-28] MEDS: PREGABALIN 100 MG CAP (LYRICA) PO SCH (22:32)
[2016-08-28] MEDS: TEARS NATURALE FREE OPHTH DROP VIAL OU SCH (22:58)
[2016-08-28] MEDS: LORATADINE 10 MG TAB PO SCH (22:58)
[2016-08-28] MEDS: ALBUTEROL SULFATE 2.5 MG/0.5 ML INH NEB SOLN NEB SCH (23:46)
[2016-08-28 23:55] VITALS: BP 143/54
[2016-08-29] VITALS (8 sets, daily range): BP systolic 113–150; BP diastolic 56–67
[2016-08-29] MEDS: ALBUTEROL SULFATE 2.5 MG/0.5 ML INH NEB SOLN NEB SCH ×7 (00:19→23:19)
[2016-08-29] MEDS: LEVOTHYROXINE 0.088 MG TAB (88 MCG) PO SCH (05:20)
[2016-08-29 05:47] LABS: CALCIUM LEVEL 8.3 MG/DL (8.8-10.2); CREATININE FOR GFR 1.01 MG/DL (0.55-1.02); GLOMERULAR FILTRATION RATE 55.1 (>32); POTASSIUM SERUM 3.9 MEQ/L (3.5-5.1)
[2016-08-29 05:49] LABS: MEAN CORPUSCULAR HEMOGLOBIN 22.8 pg (27.0-33.0); MEAN CORPUSCULAR HGB CONC 30.3 g/dl (32.0-36.5); MEAN CORPUSCULAR VOLUME 75.2 fl (80.0-96.0); RED CELL DISTRIBUTION WIDTH 18.1 % (11.5-14.5); WHITE BLOOD COUNT 10.6 K/mm3 (4.0-10.0)
[2016-08-29] MEDS: PREGABALIN 100 MG CAP (LYRICA) PO SCH ×3 (08:31→20:44)
[2016-08-29] MEDS: METOPROLOL TART 50 MG TAB PO SCH ×2 (08:32→20:44)
[2016-08-29] MEDS: FUROSEMIDE 40 MG TAB PO SCH (08:32)
[2016-08-29] MEDS: SPIRONOLACTONE 25 MG TAB PO SCH (08:34)
[2016-08-29] MEDS: ACETAMINOPHEN 325 MG TAB PO SCH ×2 (08:34→16:00)
[2016-08-29] MEDS: CYANOCOBALAMIN 500 MCG TAB PO SCH (08:35)
[2016-08-29] MEDS: TEARS NATURALE FREE OPHTH DROP VIAL OU SCH (09:00)
--- NOTE | 2016-08-29 18:39 | IPN ---
DATE: 08/29/2016 SUBJECTIVE: The patient is seen and examined in the room today. The patient stated that she was in the nursing facility, she experienced frequent fatigue, resulting in fall. The patient was diagnosed with extreme iron-deficiency anemia. The patient presented with a hemoglobin of 5.5. The patient stated she does not have any blood per rectum. Denies any hemoptysis. Denies any acute bleeding. The patient received two packed red blood cell transfusions yesterday and it improved her hemoglobin to 7.9. She stated her weakness showed some improvement; however, the patient still feels extremely weak. Patient feels dizzy, unable to concentrate. OBJECTIVE: VITAL SIGNS: Temperature is 97, pulse 68, respirations 20, blood pressure 143/66, pulse oximetry 94% with two liters nasal cannula. GENERAL: Fatigued, no sign of acute distress. The patient is alert and awake, oriented. HEENT: Normocephalic, atraumatic. Extraocular motor grossly intact. CARDIOVASCULAR: Irregularly irregular. Positive S1, S2. RESPIRATORY: Clear to auscultation bilaterally. ABDOMEN: Soft, nontender, nondistended. Bowel sounds present. No rebound, no guarding. EXTREMITIES: No edema, no sign of cyanosis. LABORATORY DATA: WBC is 10.6, hemoglobin 7.9, hematocrit 26.2, platelet count 210. Sodium 136, potassium 3.9, chloride 99, carbon dioxide 33, BUN 32, creatinine 1.01, GFR is 55.1, fasting glucose 100, calcium 8.3. ASSESSMENT AND PLAN: 1. Symptomatic anemia. Cause of anemia possibly secondary to chronic iron deficiency. Will follow with stool occult blood test. Patient denies any sign of acute bleeding. The patient received two red blood cells supplement in the last 24 hours; however, the patient still remains symptomatic. We will give the patient one extra packed red blood cells today. Continue to monitor the patient's vital signs including orthostatic and heart rate, and the patient will continue to be monitored on telemetry. 2. History of atrial fibrillation. Currently heart rate is within satisfactory range. Due to concern for gastrointestinal (GI) bleed, Xarelto is discontinued at this moment. 3. Acute kidney injury secondary to hypoperfusion. After two packed red blood cell transfusions, the patient's renal function improved from 43.9 to 55. Will continue to monitor urinary output. 4. Chronic obstructive pulmonary disease (COPD). Does not have any wheezes. Continue breathing treatment as needed. 5. Hypertension. The patient is on Lasix, spironolactone and Lopressor. 6. Hypothyroidism, on Synthroid. The patient has a normal free T4 and thyroid stimulating hormone (TSH). 7. History of external hemorrhoids. 8. Deep venous thrombosis (DVT) prophylaxis. The patient is on thromboembolism deterrent stockings (TEDs), sequential compression devices.
[2016-08-29] MEDS: POLYVINYL ALCOHOL OPHTH SOLN 15 ML(LIQUITEARS) OU SCH (20:43)
[2016-08-29] MEDS: PANTOPRAZOLE 40MG INJ (PROTONIX) (C9113) IV SCH (20:43)
[2016-08-29] MEDS: ACETAMINOPHEN TAB 650MG DOSE (2X325MG) PO SCH (20:44)
[2016-08-29] MEDS: traMADol 50 MG TAB PO SCH (20:44)
[2016-08-29] MEDS: LORATADINE 10 MG TAB PO SCH (20:45)
[2016-08-30] VITALS (7 sets, daily range): BP systolic 130–172; BP diastolic 56–66; O2SAT 91–96
[2016-08-30] MEDS: ALBUTEROL SULFATE 2.5 MG/0.5 ML INH NEB SOLN NEB SCH ×6 (03:22→23:49)
[2016-08-30] MEDS: ALBUTEROL SULFATE 2.5 MG/0.5 ML INH NEB SOLN NEB PRN (05:04)
[2016-08-30 05:24] LABS: MEAN CORPUSCULAR HEMOGLOBIN 24.3 pg (27.0-33.0); MEAN CORPUSCULAR HGB CONC 31.4 g/dl (32.0-36.5); MEAN CORPUSCULAR VOLUME 77.4 fl (80.0-96.0); RED CELL DISTRIBUTION WIDTH 18.2 % (11.5-14.5); WHITE BLOOD COUNT 10.4 K/mm3 (4.0-10.0)
[2016-08-30 05:52] LABS: ANION GAP 6 MEQ/L (8-16); BLOOD UREA NITROGEN 23 MG/DL (7-18); CALCIUM LEVEL 8.1 MG/DL (8.8-10.2); CARBON DIOXIDE LEVEL 32 MEQ/L (21-32); CHLORIDE LEVEL 101 MEQ/L (98-107); CREATININE FOR GFR 0.85 MG/DL (0.55-1.02); GLOMERULAR FILTRATION RATE > 60.0 (>32); GLUCOSE, FASTING 111 MG/DL (83-110); POTASSIUM SERUM 3.9 MEQ/L (3.5-5.1); SODIUM LEVEL 139 MEQ/L (136-145)
[2016-08-30] MEDS: LEVOTHYROXINE 0.088 MG TAB (88 MCG) PO SCH (05:55)
[2016-08-30] MEDS: CYANOCOBALAMIN 500 MCG TAB PO SCH (08:26)
[2016-08-30] MEDS: SPIRONOLACTONE 25 MG TAB PO SCH (08:26)
[2016-08-30] MEDS: PREGABALIN 100 MG CAP (LYRICA) PO SCH ×3 (08:26→21:08)
[2016-08-30] MEDS: KETOCONAZOLE 2% CREAM TOP SCH ×2 (08:27→21:11)
[2016-08-30] MEDS: FUROSEMIDE 40 MG TAB PO SCH (08:27)
[2016-08-30] MEDS: POLYVINYL ALCOHOL OPHTH SOLN 15 ML(LIQUITEARS) OU SCH ×2 (08:27→21:11)
[2016-08-30] MEDS: METOPROLOL TART 50 MG TAB PO SCH ×2 (08:28→21:10)
[2016-08-30] MEDS: ACETAMINOPHEN TAB 650MG DOSE (2X325MG) PO SCH ×3 (08:28→21:07)
--- NOTE | 2016-08-30 11:28 | IPNPDOC ---
Text Note Date of Service The patient was seen on 08/30/16. NOTE Subjective: Patient is a 86-year-old female with anemia secondary to GI bleed, seen for hospitalist follow-up. Patient says she is doing okay today but says she is not completely with it yet. She is still getting dizzy. She is also complaining of feeling cold. She denies any fevers, sweats, chest pain/pressure, shortness of breath, difficulty breathing, abdominal pain, nausea, vomiting, diarrhea, constipation. Objective: Vital signs: Temperature 96.7, pulse 88, respiratory rate 18, blood pressure 138 /74, pulse ox 92% on room air Gen.: Patient awake, alert and oriented, verbal and able to answer questions appropriately. Patient does not appear to be in any acute distress Heart: Regular rate and rhythm, normal S1-S2. No murmurs, rubs, clicks or gallops Lungs: Clear to auscultation bilaterally. No wheezes, rales or rhonchi Abdomen: Active bowel sounds, soft, nontender, no masses to palpation Extremities: Bilateral lower extremity pitting edema to just below knee Laboratory data: Hemoglobin and hematocrit on 08/29/16 at 18:58:11.1/34.5 CBC: White blood cells 10.4, hemoglobin and hematocrit 9.1/29.1, platelets 176 Chemistry: Sodium 139, potassium 3.9, chloride 101, carbon dioxide 32, BUN 23, creatinine 0.85, glucose 111, calcium 8.1 Microbiology: Stool positive for occult blood Assessment: Patient 86-year-old female with anemia secondary to GI bleeding. Patient has received 3 units of packed red blood cells. Plan: #1: Anemia: Anemia secondary to iron deficiency and GI bleed: Patient responded to 3 units of packed red blood cells, however since receiving red blood cells patient's hemoglobin has dropped. We will repeat hemoglobin and hematocrit every 6 hours. If hemoglobin continues to drop patient may require further blood transfusion. Dr. Gonzales from general surgery was consulted for further evaluation. #2: Acute kidney injury: Resolved, continue to monitor #3: Diabetes mellitus: Continue consistent carbohydrate diet #4: Hypertension: Stable, continue Lasix 60 mg by mouth daily, Lopressor 50 mg by mouth twice a day, spironolactone 25 mg by mouth daily #5: COPD: Stable, continue albuterol sulfate 2.5 mg inhalation every 4 hours, every 2 hours when necessary #6: Hypothyroidism: Stable, continue Synthroid 88 mcg by mouth daily #7: Atrial fibrillation: Stable, continue Lopressor 50 mg by mouth twice a day. We will continue to hold Xarelto due to GI bleeding #8: Seasonal allergies: Stable, continue loratadine 10 mg by mouth every afternoon #9: External Hemorrhoids: Continue hydrocortisone 3 times a day when necessary to rectum #10: Neuropathy: Stable, continue Lyrica 100 mg by mouth 3 times a day, tramadol 50 mg by mouth daily at bedtime #11: DVT prophylaxis: Continue mechanical prophylaxis My preceptor for this patient encounter was physically present in the building during the encounter and was fully available. As needed, all aspects of the patient interview, examination, medical decision making process, and medical care plan development were reviewed and approved by the preceptor. Preceptor is aware and concurs with the plan as stated in the body of this note and will attest to such by his/her cosignature Alex DALY, I+O VSAlex I+O Laboratory Tests 08/29/16 18:58 08/30/16 05:02 Calcium Level 8.1 L, Red Blood Count 3.75 L, Mean Corpuscular Volume 77.4 L, Mean Corpuscular Hemoglobin 24.3 L, Mean Corpuscular Hemoglobin Concent 31.4 L, Red Cell Distribution Width 18.2 H Vital Signs Date Time Temp Pulse Resp B/P Pulse Ox O2 Delivery O2 Flow Rate FiO2 08/30/16 11:15 Room Air 08/30/16 10:24 97.8 73 18 172/60 93 08/29/16 08:00 2.0 I&O- Last 24 Hours up to 6 AM 08/30/16 06:00 Intake Total 3078 ml Output Total 1800 ml Balance 1278 ml SHREYA CHONG DO Aug 30, 2016 11:28
[2016-08-30] MEDS: PANTOPRAZOLE 40MG INJ (PROTONIX) (C9113) IV SCH (21:07)
[2016-08-30] MEDS: traMADol 50 MG TAB PO SCH (21:08)
[2016-08-30] MEDS: LORATADINE 10 MG TAB PO SCH (21:11)
[2016-08-31 03:18] LABS: MEAN CORPUSCULAR HEMOGLOBIN 24.3 pg (27.0-33.0); MEAN CORPUSCULAR HGB CONC 31.6 g/dl (32.0-36.5); MEAN CORPUSCULAR VOLUME 76.9 fl (80.0-96.0); RED CELL DISTRIBUTION WIDTH 18.8 % (11.5-14.5)
[2016-08-31] MEDS: ALBUTEROL SULFATE 2.5 MG/0.5 ML INH NEB SOLN NEB SCH ×6 (03:19→23:19)
[2016-08-31 03:29] LABS: CALCIUM LEVEL 8.1 MG/DL (8.8-10.2); CREATININE FOR GFR 1.06 MG/DL (0.55-1.02); GLOMERULAR FILTRATION RATE 52.1 (>32); POTASSIUM SERUM 3.7 MEQ/L (3.5-5.1)
[2016-08-31] MEDS: LEVOTHYROXINE 0.088 MG TAB (88 MCG) PO SCH (05:58)
[2016-08-31 06:00] VITALS: BP 138/63
[2016-08-31 06:01] VITALS: BP_SYST 138; BP_SYST 142; BP_SYST 147; BP_DIAS 63; BP_DIAS 65; BP_DIAS 67
[2016-08-31] MEDS: METOPROLOL TART 50 MG TAB PO SCH ×2 (08:17→20:31)
[2016-08-31] MEDS: KETOCONAZOLE 2% CREAM TOP SCH ×2 (08:24→20:46)
[2016-08-31] MEDS: CYANOCOBALAMIN 500 MCG TAB PO SCH (08:24)
[2016-08-31] MEDS: FUROSEMIDE 40 MG TAB PO SCH (08:25)
[2016-08-31] MEDS: ACETAMINOPHEN TAB 650MG DOSE (2X325MG) PO SCH ×3 (08:25→20:46)
[2016-08-31] MEDS: SPIRONOLACTONE 25 MG TAB PO SCH (08:25)
[2016-08-31] MEDS: PREGABALIN 100 MG CAP (LYRICA) PO SCH ×3 (08:25→20:44)
[2016-08-31] MEDS: POLYVINYL ALCOHOL OPHTH SOLN 15 ML(LIQUITEARS) OU SCH ×2 (08:26→20:46)
[2016-08-31] MEDS: cefTRIAXone SOD 2 GM in D5W MINI-BAG PLUS 50 ML IV SCH ×2 (08:28→19:45)
[2016-08-31 14:00] VITALS: BP 136/67
--- NOTE | 2016-08-31 14:49 | IPN ---
DATE: 08/31/2016 SUBJECTIVE: Patient is seen and examined in the room with her daughter. Patient did complain about burning during urination. Patient is having multiple urination. Denies any shortness of breath. Patient still feels weak, however it is better than before. Per family member, patient's mentation shows significant improvement. No overnight events reported. OBJECTIVE: VITAL SIGNS: Temperature 99.3, pulse 70, respiration rate 18, blood pressure 138/63, pulse oximetry 92% in room air. GENERAL: Sign of dementia, no acute distress, alert and oriented times three. HEENT: Normocephalic, atraumatic. Extraocular motors grossly intact. CARDIOVASCULAR: Positive S1, S2, regular rate. LUNGS: Clear to auscultation bilaterally. ABDOMEN: Soft, nontender, nondistended. Bowel sounds present. No rebound, no guarding. EXTREMITIES: Bilateral pitting edema. No sign of cyanosis. LABORATORY DATA: WBC 9, hemoglobin 8.9, hematocrit 28.3, platelet count 132. Sodium 141, potassium 3.7, chloride 101, carbon dioxide 32, BUN 21, creatinine 1.06, GFR is 52.1, fasting glucose 135, calcium 8.1. ASSESSMENT AND PLAN: 1. Severe symptomatic anemia. Patient's hemoglobin and hematocrit has been stable. No active bleeding. However, patient had occult blood test positive. Dr. Gonzales has been consulted. Patient will have a scheduled colonoscopy either on Thursday or Thursday. We will check the hemoglobin and hematocrit every 12 hours. Patient does not have orthostatic hypotension at this moment and patient is improving clinically. 2. Urinary tract infection (UTI). Culture came back positive for Enterobacter. Patient was started on Rocephin. Patient does have sign of urinary tract infection (UTI). 3. History of atrial fibrillation. Heart rate is in satisfactory range. Due to gastrointestinal (GI) bleed, Xarelto is on hold. 4. Acute kidney injury secondary to hypoperfusion. Currently glomerular filtration rate (GFR) is around 52. Will continue to monitor. At this moment patient's spironolactone will be on hold. 5. Chronic obstructive pulmonary disease (COPD). No wheezes. Continue treatment as needed. 6. Hypertension. Patient is on Lasix, spironolactone, and Lopressor. 7. Hypothyroidism, on Synthroid. Thyroid stimulating hormone (TSH) and free T4 is normal. 8. History of external hemorrhoids. 9. Deep venous thrombosis (DVT) prophylaxis on thromboembolism deterrent stockings (TEDs) and sequential compression device. 10. Positive for gastrointestinal (GI) bleed. Will continue to monitor.
[2016-08-31] MEDS: ACETAMINOPHEN TAB 650MG DOSE (2X325MG) PO PRN (17:37)
[2016-08-31] MEDS: PANTOPRAZOLE 40MG INJ (PROTONIX) (C9113) IV SCH (20:44)
[2016-08-31] MEDS: LORATADINE 10 MG TAB PO SCH (20:45)
[2016-08-31] MEDS: traMADol 50 MG TAB PO SCH (20:45)
[2016-08-31 22:00] VITALS: BP 106/53
[2016-09-01] MEDS: ALBUTEROL SULFATE 2.5 MG/0.5 ML INH NEB SOLN NEB SCH ×5 (03:13→19:29)
[2016-09-01] MEDS: LEVOTHYROXINE 0.088 MG TAB (88 MCG) PO SCH (05:14)
[2016-09-01 06:00] VITALS: BP 141/65
[2016-09-01 06:01] LABS: MEAN CORPUSCULAR HEMOGLOBIN 24.4 pg (27.0-33.0); MEAN CORPUSCULAR HGB CONC 31.3 g/dl (32.0-36.5); MEAN CORPUSCULAR VOLUME 78.2 fl (80.0-96.0); RED CELL DISTRIBUTION WIDTH 19.1 % (11.5-14.5); WHITE BLOOD COUNT 8.7 K/mm3 (4.0-10.0)
[2016-09-01 06:19] LABS: CALCIUM LEVEL 8.4 MG/DL (8.8-10.2); CREATININE FOR GFR 0.94 MG/DL (0.55-1.02); GLOMERULAR FILTRATION RATE 59.8 (>32)
[2016-09-01] MEDS: METOPROLOL TART 50 MG TAB PO SCH ×2 (08:51→21:11)
[2016-09-01] MEDS: SPIRONOLACTONE 25 MG TAB PO SCH (08:51)
[2016-09-01] MEDS: CYANOCOBALAMIN 500 MCG TAB PO SCH (08:52)
[2016-09-01] MEDS: ACETAMINOPHEN TAB 650MG DOSE (2X325MG) PO SCH ×3 (08:52→21:10)
[2016-09-01] MEDS: PREGABALIN 100 MG CAP (LYRICA) PO SCH ×3 (08:52→21:10)
[2016-09-01] MEDS: FUROSEMIDE 40 MG TAB PO SCH (08:52)
[2016-09-01] MEDS: POLYVINYL ALCOHOL OPHTH SOLN 15 ML(LIQUITEARS) OU SCH ×2 (08:53→21:13)
[2016-09-01] MEDS: cefTRIAXone SOD 2 GM in D5W MINI-BAG PLUS 50 ML IV SCH ×2 (08:54→21:09)
[2016-09-01] MEDS: ACETAMINOPHEN TAB 650MG DOSE (2X325MG) PO PRN (12:41)
[2016-09-01 14:00] VITALS: BP 148/65
--- NOTE | 2016-09-01 14:04 | IPN ---
DATE: 09/01/2016 SUBJECTIVE: Patient is seen and examined in the room today. The patient states that she is still experiencing dysuria. The patient states that her fatigue and dizziness have improved. The patient's orientation is improving; however, the patient still shows some signs of dementia. The patient and the patient's family member were highly requesting to have a colonoscopy done by the gastrointestinal specialist, Dr. Estrada, because they have worked with Dr. Estrada in the past. OBJECTIVE: VITAL SIGNS: Temperature 98.9, pulse is 94, respiration rate 16, blood pressure is 141/6, pulse oximetry 90% in room air. GENERAL: No sign of acute distress, alert and oriented times three. Signs of dementia. HEENT: Normocephalic, atraumatic. Extraocular motors grossly intact. CARDIOVASCULAR: Positive S1, S2, regular rate. LUNGS: Clear to auscultation bilaterally. ABDOMEN: Soft, nontender, nondistended. Bowel sounds present. No rebound, no guarding. EXTREMITIES: Bilateral pitting edema. No sign of cyanosis. LABORATORY DATA: WBC is 8.7, hemoglobin 9.5, hematocrit 30.4, platelet count is 196. Sodium is 139, potassium 4.0, chloride 101, carbon dioxide 30, BUN 13, creatinine 0.94, GFR is 59.8. Fasting glucose 112, calcium is 8.4. ASSESSMENT AND PLAN: 1. Symptomatic anemia. Patient's hemoglobin and hematocrit have been stable. The patient received 3 units packed red blood cell transfusion from 08/28 into 08/29/2016. Since then, the patient does not require further transfusion. Repeat hemoglobin and hematocrit have remained stable. The patient has never had a colonoscopy in the past. Per family and the patient's request, gastrointestinal specialist consult has been placed, Dr. Estrada. We will schedule colonoscopy for Thursday. 2. Urinary tract infection (UTI). Culture came back positive for Enterobacter. Patient is on Rocephin. Today is day #2. 3. History of atrial fibrillation. Due to gastrointestinal bleed, Xarelto is on hold. 4. Acute kidney injury secondary to hypoperfusion. Currently, the patient's glomerular filtration rate (GFR) has been improving. Continue to monitor. 5. Chronic obstructive pulmonary disease (COPD). No wheezes. We will continue to monitor. 6. Hypertension. On Lasix, spironolactone, and Lopressor. 7. Hypothyroidism, on Synthroid. Thyroid stimulating hormone (TSH) and free T4 have been normal. 8. History of external hemorrhoids. 9. Deep venous thrombosis (DVT) prophylaxis on thromboembolism deterrent stockings (TEDs) and sequential compression device.
[2016-09-01] MEDS ORDERED: BISACODYL 5 MG TAB PO ONE (16:00)
[2016-09-01] MEDS ORDERED: DEXTROSE 50% 50 ML SYRINGE IV PRN (17:30)
[2016-09-01] MEDS ORDERED: GLUCAGON FOR INJ 1 MG VIAL (J1610) SC PRN (17:30)
[2016-09-01] MEDS ORDERED: GLUCOSE 4 GM CHEW TABLET PO PRN (17:30)
[2016-09-01] MEDS: HumaLOG INSULIN (NovoLOG) PER UNIT SC SCH ×2 (17:30→21:00)
[2016-09-01] MEDS ORDERED: GOLYTELY SOLN 4000 ML BTL PO ONE (20:00)
[2016-09-01] MEDS: LORATADINE 10 MG TAB PO SCH (21:10)
[2016-09-01] MEDS: PANTOPRAZOLE 40MG INJ (PROTONIX) (C9113) IV SCH (21:11)
[2016-09-01] MEDS: traMADol 50 MG TAB PO SCH (21:12)
[2016-09-01 22:00] VITALS: BP 155/64
[2016-09-02] MEDS: LEVOTHYROXINE 0.088 MG TAB (88 MCG) PO SCH (05:51)
[2016-09-02 05:58] LABS: MEAN CORPUSCULAR HEMOGLOBIN 23.8 pg (27.0-33.0); MEAN CORPUSCULAR HGB CONC 30.2 g/dl (32.0-36.5); MEAN CORPUSCULAR VOLUME 78.9 fl (80.0-96.0); RED CELL DISTRIBUTION WIDTH 18.9 % (11.5-14.5); WHITE BLOOD COUNT 8.9 K/mm3 (4.0-10.0)
[2016-09-02 06:00] VITALS: BP 131/58
[2016-09-02 06:23] LABS: CALCIUM LEVEL 8.2 MG/DL (8.8-10.2); GLOMERULAR FILTRATION RATE 55.7 (>32); POTASSIUM SERUM 3.6 MEQ/L (3.5-5.1)
[2016-09-02] MEDS: ALBUTEROL SULFATE 2.5 MG/0.5 ML INH NEB SOLN NEB SCH ×7 (06:50→23:07)
[2016-09-02] MEDS: cefTRIAXone SOD 2 GM in D5W MINI-BAG PLUS 50 ML IV SCH ×2 (07:45→20:30)
[2016-09-02] MEDS: HumaLOG INSULIN (NovoLOG) PER UNIT SC SCH ×4 (07:45→20:36)
[2016-09-02] MEDS: ACETAMINOPHEN TAB 650MG DOSE (2X325MG) PO SCH ×3 (07:46→20:41)
[2016-09-02] MEDS: PREGABALIN 100 MG CAP (LYRICA) PO SCH ×3 (07:46→20:31)
[2016-09-02] MEDS: FUROSEMIDE 40 MG TAB PO SCH (07:47)
[2016-09-02] MEDS: METOPROLOL TART 50 MG TAB PO SCH ×2 (07:49→20:39)
[2016-09-02] MEDS: CYANOCOBALAMIN 500 MCG TAB PO SCH (07:49)
[2016-09-02] MEDS: SPIRONOLACTONE 25 MG TAB PO SCH (07:49)
[2016-09-02] MEDS: POLYVINYL ALCOHOL OPHTH SOLN 15 ML(LIQUITEARS) OU SCH ×2 (07:50→20:38)
[2016-09-02 14:00] VITALS: BP 137/63
[2016-09-02] MEDS ORDERED: GOLYTELY SOLN 4000 ML BTL PO ONE (15:00)
--- NOTE | 2016-09-02 17:51 | IPN ---
DATE: 09/02/2016 The patient is seen and examined at the bedside. Chart has been reviewed. She complains of generalized fatigue and weakness and states that she is hungry. She wishes that she could eat. No other issues per nursing. Denies any chest pain, pressure or tightness, shortness of breath, palpitations, lightheadedness, or dizziness when she ambulates. PHYSICAL EXAMINATION: VITAL SIGNS: Temperature 98.9, pulse 75, respiratory rate 17, blood pressure 141/64, 91% on room air. GENERAL: Patient is awake, alert, and oriented to person and place. She answers question appropriately. No significant pallor, icterus, or jaundice. LUNGS: Clear to auscultation. No wheezes, rales, or rhonchi. HEART: S1, S2, sinus rhythm. ABDOMEN: Soft, nontender, nondistended. Positive bowel sounds. EXTREMITIES: Positive bilateral pitting edema 2+. LABORATORY DATA: White count 8.9, hemoglobin 9, hematocrit 30, platelet count 188. Sodium 141, potassium 3.6, chloride 101, bicarbonate 31, BUN 17, creatinine 1, glucose of 134. Urine culture Enterobacter, currently on IV ceftriaxone. ASSESSMENT AND PLAN: This is an 86-year-old female with a history of spinal stenosis, type 2 diabetes, hypertension, chronic obstructive pulmonary disease (COPD), hypothyroidism, atrial fibrillation, hemorrhoids, and neuropathy who presented with symptomatic anemia complaining of dizziness. She was found to have black tarry stools and heme positive stool. Hemoglobin and hematocrit have been stable at 9 to 9.5 with three units of red blood cell transfused on admission. The patient is awaiting colonoscopy by Dr. Estrada. CURRENT ISSUES: 1. Symptomatic anemia, secondary to gastrointestinal (GI) bleed. The patient's hemoglobin and hematocrit has been stable. She received three units of blood cells from 08/28/2016 to 08/29/2016. Since then, the patient has not required blood transfusion. Hemoglobin remains stable. She continues to complain of generalized weakness which is most likely due to deconditioning. The patient has never had a colonoscopy in the past. Will be planning for a colonoscopy with Dr. Estrada on Thursday, undergoing bowel preparation. Defer to Dr. Estrada for any further recommendations. 2. Urinary tract infection (UTI), positive for Enterobacter on culture. Currently on Rocephin and today is day number three. 3. History of atrial fibrillation. Due to GI bleed, Xarelto has been placed on hold. 4. GI bleed with symptomatic anemia. The patient received three units of red blood cell transfusion. Colonoscopy planned for Thursday with Dr. Estrada, director of sustainable design. No further recommendations for red blood cell transfusion as the hemoglobin and hematocrit have remained stable. No signs of active GI bleed. 5. Acute kidney injury, secondary to hypoperfusion. Glomerular filtration rate (GFR) is improving. Continue to monitor. 6. Chronic obstructive pulmonary disease (COPD). No wheezing. Continue to monitor. 7. Hypertension, on Lasix, spironolactone, and Lopressor. 8. Hypothyroidism, on Synthroid. 9. History of external hemorrhoids, chronic. 10. History of type 2 diabetes, on sliding scale. 11. Hypertension, stable, on Lopressor 50 twice a day. 12. Diabetic neuropathy and chronic pain, on Lyrica and Ultram. MTDD
[2016-09-02] MEDS: PANTOPRAZOLE 40MG INJ (PROTONIX) (C9113) IV SCH (20:31)
[2016-09-02] MEDS: LORATADINE 10 MG TAB PO SCH (20:31)
[2016-09-02] MEDS: traMADol 50 MG TAB PO SCH (20:37)
[2016-09-02 22:00] VITALS: BP 162/72
[2016-09-03] MEDS: ALBUTEROL SULFATE 2.5 MG/0.5 ML INH NEB SOLN NEB SCH ×6 (03:47→23:18)
[2016-09-03] MEDS: LEVOTHYROXINE 0.088 MG TAB (88 MCG) PO SCH (05:45)
[2016-09-03 06:00] VITALS: BP 146/55
[2016-09-03] MEDS ORDERED: GOLYTELY SOLN 4000 ML BTL PO ONE (06:00)
[2016-09-03 06:15] LABS: MEAN CORPUSCULAR HEMOGLOBIN 24.5 pg (27.0-33.0); MEAN CORPUSCULAR HGB CONC 30.7 g/dl (32.0-36.5); MEAN CORPUSCULAR VOLUME 79.9 fl (80.0-96.0); RED CELL DISTRIBUTION WIDTH 19.2 % (11.5-14.5); WHITE BLOOD COUNT 7.2 K/mm3 (4.0-10.0)
[2016-09-03 06:26] LABS: ANION GAP 10 MEQ/L (8-16); BLOOD UREA NITROGEN 12 MG/DL (7-18); CALCIUM LEVEL 8.1 MG/DL (8.8-10.2); CARBON DIOXIDE LEVEL 31 MEQ/L (21-32); CHLORIDE LEVEL 101 MEQ/L (98-107); CREATININE FOR GFR 0.81 MG/DL (0.55-1.02); GLOMERULAR FILTRATION RATE > 60.0 (>32); GLUCOSE, FASTING 133 MG/DL (83-110); POTASSIUM SERUM 3.3 MEQ/L (3.5-5.1); SODIUM LEVEL 142 MEQ/L (136-145)
[2016-09-03] MEDS ORDERED: POTASSIUM CHLORIDE 10 MEQ SR TABLET PO ONE (08:15)
[2016-09-03] MEDS: CYANOCOBALAMIN 500 MCG TAB PO SCH (08:46)
[2016-09-03] MEDS: HumaLOG INSULIN (NovoLOG) PER UNIT SC SCH ×4 (08:46→21:51)
[2016-09-03] MEDS: FUROSEMIDE 40 MG TAB PO SCH (08:47)
[2016-09-03] MEDS: ACETAMINOPHEN TAB 650MG DOSE (2X325MG) PO SCH ×3 (08:47→20:29)
[2016-09-03] MEDS: cefTRIAXone SOD 2 GM in D5W MINI-BAG PLUS 50 ML IV SCH ×2 (08:48→20:27)
[2016-09-03] MEDS: PREGABALIN 100 MG CAP (LYRICA) PO SCH ×3 (08:48→20:27)
[2016-09-03] MEDS: SPIRONOLACTONE 25 MG TAB PO SCH (08:48)
[2016-09-03] MEDS: POLYVINYL ALCOHOL OPHTH SOLN 15 ML(LIQUITEARS) OU SCH ×2 (08:50→20:27)
[2016-09-03] MEDS: METOPROLOL TART 50 MG TAB PO SCH ×2 (08:50→20:28)
--- NOTE | 2016-09-03 14:12 | ROOR ---
Patient Name: Sharita Mckinnon Procedure Date: 09/03/2016 2:04 PM Date of : 1930 Age: 86 Room: [facility] Gender: Female Note Status: Finalized Procedure: Upper GI endoscopy Indications: Iron deficiency anemia, Suspected upper gastrointestinal bleeding in patient with chronic blood loss, Gastrointestinal bleeding of unknown origin Providers: Tree Estrada MD Referring MD: Kimberly Yeung DO Requesting Provider: Medicines: Monitored Anesthesia Care Complications: No immediate complications. Procedure: Pre-Anesthesia Assessment: - The heart rate, respiratory rate, oxygen saturations, blood pressure, adequacy of pulmonary ventilation, and response to care were monitored throughout the procedure. The Endoscope was introduced through the mouth, and advanced to the second part of duodenum. The upper GI endoscopy was accomplished without difficulty. The patient tolerated the procedure well. Findings: The Z-line was regular and was found 35 cm from the incisors. A medium-sized hiatal hernia was present. No other significant abnormalities were identified in a careful examination of the stomach. The exam of the duodenum was otherwise normal. Impression: - Z-line regular, 35 cm from the incisors. - Medium-sized hiatal hernia. - No specimens collected. - The examination was otherwise normal. Recommendation: - Patient has a contact number available for emergencies. The signs and symptoms of potential delayed complications were discussed with the patient. Return to normal activities tomorrow. Written discharge instructions were provided to the patient. - High fiber diet. - Discharge patient to home. - Continue present medications. - Return to referring physician. - The findings and recommendations were discussed with the patient's family. Tree Estrada MD Tree Estrada MD 09/03/2016 2:12:10 PM This report has been signed electronically. Number of Addenda: 0 Note Initiated On: 09/03/2016 2:04 PM Estimated Blood Loss: Estimated blood loss: none.
--- NOTE | 2016-09-03 14:52 | ROOR ---
Patient Name: Sharita Mckinnon Procedure Date: 09/03/2016 2:05 PM Date of : 1930 Age: 86 Room: [facility] Gender: Female Note Status: Finalized Procedure: Colonoscopy to Cecum + Cold Snare Polypectomy + Biopsies + Hemoclips + Marking Indications: Gastrointestinal occult blood loss, Iron deficiency anemia Providers: Tree Estrada MD Referring MD: Kimberly Yeung DO Requesting Provider: Medicines: Monitored Anesthesia Care Complications: No immediate complications. Procedure: Pre-Anesthesia Assessment: - The heart rate, respiratory rate, oxygen saturations, blood pressure, adequacy of pulmonary ventilation, and response to care were monitored throughout the procedure. The Colonoscope was introduced through the anus and advanced to the cecum, identified by appendiceal orifice and ileocecal valve. The colonoscopy was performed without difficulty. The patient tolerated the procedure well. The quality of the bowel preparation was excellent. Findings: The perianal and digital rectal examinations were normal. Non-bleeding internal hemorrhoids were found during retroflexion. The hemorrhoids were small and Grade I (internal hemorrhoids that do not prolapse). Multiple small and large-mouthed diverticula were found in the recto-sigmoid colon, sigmoid colon and descending colon. Two sessile polyps were found at 20 cm proximal to the anus. The polyps were medium in size. These polyps were removed with a cold snare. Resection and retrieval were complete. To prevent bleeding after the polypectomy, two hemostatic clips were successfully placed (MR conditional). There was no bleeding at the end of the procedure. A large polyp was found in the distal ascending colon. The polyp was sessile. A frond-like/villous, sessile and ulcerated non-obstructing large mass was found in the cecum. No bleeding was present. This was biopsied with a cold forceps for histology. Area was successfully injected with Spot (carbon black) for tattooing. The exam was otherwise without abnormality on direct and retroflexion views. The exam was otherwise without abnormality. Impression: - Non-bleeding internal hemorrhoids. - Diverticulosis in the recto-sigmoid colon, in the sigmoid colon and in the descending colon. - Two medium polyps at 20 cm proximal to the anus, removed with a cold snare. Resected and retrieved. Clips (MR conditional) were placed. - One large polyp in the distal ascending colon. - Rule out malignancy, tumor in the cecum. Biopsied. Injected. - The examination was otherwise normal on direct and retroflexion views. - The examination was otherwise normal. - The exam was otherwise normal to the cecum. Recommendation: - Patient has a contact number available for emergencies. The signs and symptoms of potential delayed complications were discussed with the patient. Return to normal activities tomorrow. Written discharge instructions were provided to the patient. - High fiber diet. - Continue present medications. - Await pathology results. - Telephone GI clinic for pathology results in 1 week. - The findings and recommendations were discussed with the patient's family. - Refer to a surgeon. Tree Estrada MD Tree Estrada MD 09/03/2016 2:52:23 PM This report has been signed electronically. Number of Addenda: 0 Note Initiated On: 09/03/2016 2:05 PM Estimated Blood Loss: Estimated blood loss: none.
[2016-09-03 15:50] VITALS: BP 142/60
[2016-09-03 16:20] VITALS: BP 140/70
--- NOTE | 2016-09-03 17:16 | IPN ---
DATE: 09/03/2016 Patient seen and examined at the bedside. Chart has been reviewed. This morning patient has no complaints of chest pain, pressure, tightness, shortness of breath, palpitations, lightheadedness, or dizziness. She is having diarrhea due to bowel prep. Denies any bright red blood per rectum, melena, black tarry stools. Afebrile. No chills. No diaphoresis. Temperature 96.9, pulse 75, respiratory rate 18, blood pressure 146/55, 90% on room air. GENERAL: Patient is awake, alert, oriented times three, answering questions appropriately. Moist mucous membranes. LUNGS: Clear to auscultation. No wheezes, rales, or rhonchi. HEART: S1, S2, sinus rhythm. ABDOMEN: Soft, nontender, nondistended. Positive bowel sounds. EXTREMITIES: Positive pitting edema, 2+. LABORATORY DATA: White count 7.2, hemoglobin 9.3, hematocrit 30, platelet count 225. Sodium 142, potassium 3.3, chloride 101, bicarbonate 31, BUN 12, creatinine 0.81, glucose of 133. Microbiology: Urine culture, Enterobacter. Hemoccult stool August 29 positive. ASSESSMENT AND PLAN: This is an 86-year-old female with a history of spinal stenosis, type 2 diabetes, hypertension, chronic obstructive pulmonary disease (COPD), hypothyroidism, atrial fibrillation, hemorrhoids, neuropathy, presents with symptomatic anemia, complaining of dizziness. She was found to have black tarry stools, heme-positive stool. Hemoglobin and hematocrit stable at 9-9.5 with 3 units of red blood cells transfusion on admission with improvement from hemoglobin of 5.5 at presentation. Patient is undergoing bowel prep for planned colonoscopy with Dr. Estrada today at 2 p.m. CURRENT ISSUES: 1. Symptomatic anemia secondary to active gastrointestinal (GI) bleed. Patient's hemoglobin and hematocrit have been stable. She has received 3 units of blood from 08/28/2016 to 08/29/2016. Since then hemoglobin has remained unchanged and does not require transfusion. She continues to complain of generalized weakness, most likely due to deconditioning. Patient has had no prior history of colonoscopy and is fine for colonoscopy at 2 p.m today, currently undergoing bowel prep. Defer to Dr. Estrada for any further recommendations. 2. Gastrointestinal (GI) bleed with symptomatic anemia, status post 3 units red blood cells transfusion. Colonoscopy for [address] Estrada. Hemoglobin and hematocrit are stable with no acute indication for red blood cell transfusion. 3. Urinary tract infection. Positive for Enterobacter on culture, currently on Rocephin, day #4. Will recheck urinalysis (UA). Currently asymptomatic. May be able to discontinue patient's intravenous (IV) antibiotics if repeat UA is improved and clean. 4. Atrial fibrillation due to active gastrointestinal (GI) bleed and symptomatic anemia. Xarelto has been held. Patient continues to be rate controlled on her current medications, metoprolol. 5. Hypertension, stable. Continue on spironolactone, metoprolol. 6. Acute kidney injury, improving, resolved. Creatinine was 1.23 on admission, currently 0.81 with IV fluid hydration. 7. Electrolyte abnormalities with low potassium. Will supplement. 8. Hypothyroidism, on Synthroid. 9. History of allergies, on Claritin. 10. History of diabetic neuropathy, on chronic Lyrica. 11. Type 2 diabetes. Nothing by mouth. Hypoglycemic protocol with sliding scale. May resume consistent-carbohydrate diet after GI workup.
[2016-09-03 17:20] VITALS: BP 150/74
[2016-09-03] MEDS ORDERED: GASTROGRAFIN SOLUTION 30ML PO ONE (17:45)
[2016-09-03] MEDS ORDERED: GASTROGRAFIN SOLUTION 30ML (Q9963) PO ONE (18:15)
[2016-09-03 18:20] VITALS: BP 161/73
[2016-09-03] MEDS ORDERED: ISOVUE-370 76% 100ML VIAL (Q9967) As Ordered ONE (19:08)
--- NOTE | 2016-09-03 19:17 | CR ---
DATE OF CONSULTATION: 09/03/2016 This is a an 86-year-old white female who was seen on 09/01/2016 for evaluation of anemia of unknown etiology. The patient was admitted on August 28 for weakness , and dizziness. She has had apparent issues with upper respiratory infection, possibly influenza. She has had no complaints of bright red blood per rectum or melena, hematochezia, or vaginal bleeding. She was tested occult blood negative. She has no known allergies. PAST MEDICAL HISTORY: Positive for: 1. Spinal stenosis. 2. Diabetes mellitus. 3. Hypertension. 4. Chronic obstructive pulmonary disease (COPD). 5. Hypothyroidism. 6. Atrial fibrillation. 7. Hemorrhoids 8. Diabetes mellitus. PAST SURGICAL HISTORY: Positive for: 1. Hysterectomy. 2. Back surgery. REVIEW OF SYSTEMS: Noncontributory to the above issue. PHYSICAL EXAMINATION: GENERAL: This is a well-developed white female in no obvious acute distress. Appears stated age. CHEST: Clear to auscultation. CARDIOVASCULAR: showed a 2/6 systolic ejection murmur, left lower sternal border. ABDOMEN: Soft, nontender. No masses, guarding, rebound, hepatosplenomegaly. Bowel sounds positive. EXTREMITIES: No cyanosis, clubbing, or edema. LABORATORY STUDIES: On admission show a white count of 10,600, hemoglobin and hematocrit of 5.5 and 20.7, MCV was low at 71.5, platelets were 247,000. The patient was given a total of 3 units packed cells. Most recent white count on September 03 was 9.3 and 30.4 with MCV of 79.9. ANALYSIS: Anemia of unknown etiology. At the present time plan will be to set the patient up for a lower endoscopy. There are no overt clinical signs of active bleeding. Possibility of alcohol tumor has been raised. Plan will be to perform upper endoscopy to rule out peptic ulcer disease and colonoscopy to look for occult colorectal cancer. [facility]
[2016-09-03] MEDS: LORATADINE 10 MG TAB PO SCH (20:27)
[2016-09-03] MEDS: PANTOPRAZOLE 40MG INJ (PROTONIX) (C9113) IV SCH (20:27)
[2016-09-03] MEDS: traMADol 50 MG TAB PO SCH (20:29)
--- NOTE | 2016-09-03 20:50 | REPUSA ---
CLINICAL HISTORY: Cecal mass. TECHNIQUE: Multiple axial CT images were obtained through the abdomen and pelvis after administratio n of intravenous contrast material. Oral contrast was not administered. COMMENTS: The liver is of uniform attenuation without mass or defect. There is no intra or extrahepatic biliar y ductal dilatation. The spleen is normal. Multiple small calcified gallstones and/or hypodense slu dge noted in the dependent portion of the gallbladder. The pancreas is of normal contour and attenua tion characteristics. There is no evidence of adrenal mass. Both kidneys demonstrate prompt and equal nephrograms. The kidneys are normal in size, shape and con figuration. There is no evidence of renal or ureteral mass. No renal or ureteral calculi are identi fied. There is no hydroureter or hydronephrosis. There is no evidence for appendicitis. There is no bowel wall thickening. No evidence for small or l arge bowel obstruction. There is no evidence of abdominal ascites or lymphadenopathy. There is no evidence of intrinsic or extrinsic bladder mass. There is no pelvic ascites or lymphaden opathy. Images of the lung bases show no evidence of pleural or parenchymal mass. There are no pleural effus ions. Scarring is seen at both lung bases. The uterus and left ovary are not identified. In the region of right adnexa, there is evidence of a cystic mass measuring approximately 6.5 x 4.6 cm. Cystic malignancy is not excluded. Further evalua tion is recommended with pelvic ultrasound. The bony structures are free of lytic or blastic lesions. Multilevel degenerative changes are seen i nvolving the thoracolumbar spine. Scattered calcifications are seen involving the aorta and major branches compatible with atherosclero sis. Small hiatal hernia is seen. IMPRESSION: 1. Multiple small calcified gallstones and/or hypodense sludge noted in the dependent portion of t he gallbladder. 2. In the region of right adnexa, there is evidence of a cystic mass measuring approximately 6.5 x 4 .6 cm. Cystic malignancy is not excluded. Further evaluation is recommended with pelvic ultrasound. Thank you for your kind referral of this patient. We appreciate the opportunity to participate in thi s patient's care.
[2016-09-03 22:00] VITALS: BP 149/64
[2016-09-04 02:00] VITALS: BP 126/57
[2016-09-04] MEDS: ALBUTEROL SULFATE 2.5 MG/0.5 ML INH NEB SOLN NEB SCH ×3 (03:59→20:50)
[2016-09-04 06:00] VITALS: BP 141/66
[2016-09-04] MEDS: LEVOTHYROXINE 0.088 MG TAB (88 MCG) PO SCH (06:23)
[2016-09-04 06:24] LABS: MEAN CORPUSCULAR HGB CONC 30.2 g/dl (32.0-36.5); MEAN CORPUSCULAR VOLUME 79.7 fl (80.0-96.0); WHITE BLOOD COUNT 7.8 K/mm3 (4.0-10.0)
[2016-09-04 06:35] LABS: ANION GAP 10 MEQ/L (8-16); BLOOD UREA NITROGEN 9 MG/DL (7-18); CALCIUM LEVEL 7.8 MG/DL (8.8-10.2); CARBON DIOXIDE LEVEL 30 MEQ/L (21-32); CHLORIDE LEVEL 103 MEQ/L (98-107); CREATININE FOR GFR 0.75 MG/DL (0.55-1.02); GLOMERULAR FILTRATION RATE > 60.0 (>32); GLUCOSE, FASTING 121 MG/DL (83-110); POTASSIUM SERUM 3.4 MEQ/L (3.5-5.1); SODIUM LEVEL 143 MEQ/L (136-145)
[2016-09-04] MEDS ORDERED: POTASSIUM CHLORIDE 10 MEQ SR TABLET PO ONE (06:45)
[2016-09-04] MEDS: FUROSEMIDE 40 MG TAB PO SCH (08:58)
[2016-09-04] MEDS: PREGABALIN 100 MG CAP (LYRICA) PO SCH ×3 (08:58→21:30)
[2016-09-04] MEDS: cefTRIAXone SOD 2 GM in D5W MINI-BAG PLUS 50 ML IV SCH ×2 (08:58→21:28)
[2016-09-04] MEDS: ACETAMINOPHEN TAB 650MG DOSE (2X325MG) PO SCH ×3 (08:58→21:30)
[2016-09-04] MEDS: SPIRONOLACTONE 25 MG TAB PO SCH (08:58)
[2016-09-04] MEDS: METOPROLOL TART 50 MG TAB PO SCH ×2 (08:58→21:32)
[2016-09-04] MEDS: CYANOCOBALAMIN 500 MCG TAB PO SCH (08:58)
[2016-09-04] MEDS: POLYVINYL ALCOHOL OPHTH SOLN 15 ML(LIQUITEARS) OU SCH ×2 (08:59→21:31)
[2016-09-04] MEDS: HumaLOG INSULIN (NovoLOG) PER UNIT SC SCH ×4 (09:23→21:00)
[2016-09-04 14:00] VITALS: BP 129/61
--- NOTE | 2016-09-04 17:32 | REP ---
Pelvic sonography: History: Cystic mass, question malignancy. Status post hysterectomy. Comparison CT study is from the previous day. Sonographic findings: Visualized bladder bowie are smooth. Transabdominal scanning is performed. The right ovary is enlarged measuring 6.6 x 5.6 x 7.3 cm. It contains a 5.6 x 5.6 x 4.3 cm unilocular cyst. No mural nodule or thick-walled septation is seen. No ascitic fluid is seen in the pelvic reflections. The right ovary is normal measuring 3.8 x 2.3 x 2.6 cm. Doppler flow is normal to both adnexa. Resistive indices are 0.56 on the right and 0.62 on the left. Impression: Unilocular cystic enlargement right ovary 5.7 cm cyst seen corresponding with the ultrasound findings. This is nonspecific. No mural nodule or thickened septation is seen. No cul-de-sac fluid seen. Signed by Sreedhar Gilmore MD 09/05/2016 10:43 A
[2016-09-04 20:51] VITALS: O2SAT 93
[2016-09-04 21:00] VITALS: BP 127/65
[2016-09-04] MEDS: PANTOPRAZOLE 40MG INJ (PROTONIX) (C9113) IV SCH (21:28)
[2016-09-04] MEDS: LORATADINE 10 MG TAB PO SCH (21:30)
[2016-09-04] MEDS: traMADol 50 MG TAB PO SCH (21:31)
--- NOTE | 2016-09-04 22:57 | IPN ---
DATE: 09/04/2016 Patient seen and examined at the bedside. Chart has been reviewed. This morning she has no complaints of bright red blood per rectum, melena, black tarry stools, or hematemesis. Still complains of generalized weakness. No chest pain, pressure, tightness, shortness of breath, palpitations, lightheadedness, or near syncope. Afebrile overnight. Yesterday patient had a colonoscopy by Dr. Estrada, which showed colonic polyps and a large nonobstructing mass at the cecal area. Dr. Patton, general surgery, was consulted. CT abdomen and pelvis shows cystic mass in the right adnexa, measuring 6.5 x 4.6 cm with bony structures free of lytic or blastic lesions. VITAL SIGNS: Temperature 96.7, pulse 75, respiratory rate 20, blood pressure 141/66, 90% on room air. GENERAL: Patient is awake, alert, oriented times three. No pallor. No icterus. No jaundice. No jugular venous distention, thyromegaly, or cervical lymphadenopathy. Patient has multiple ecchymotic areas, bilateral upper and lower extremities. LUNGS: Clear to auscultation. No wheezing, rales, or rhonchi. HEART: S1, S2, sinus rhythm. ABDOMEN: Soft, nontender, nondistended. Positive bowed sounds. EXTREMITIES: 2+ pitting edema. Multiple ecchymotic areas, bilateral upper and lower extremities. White count 7.8, hemoglobin 9.2, hematocrit 30, platelet count 243. Sodium 143, potassium 3.4, chloride 103, bicarbonate 30, BUN 9, creatinine 0.75, glucose 121. CEA/CA-[address] abdomen and pelvis showed right adnexal mass, measuring 6.5 x 4.6 cm. Cystic malignancy is not excluded. Pathology colonic polyps pending. ASSESSMENT AND PLAN: This is an 86-year-old female with a history of spinal stenosis, type 2 diabetes, hypertension, chronic obstructive pulmonary disease (COPD), hypothyroidism, atrial fibrillation, on chronic Xarelto, held secondary to gastrointestinal bleed, hemorrhoids, neuropathy, presented to the emergency room with symptomatic anemia, complaining of dizziness. She was found to have black tarry stools, heme-positive stool. Hemoglobin and hematocrit on admission were hemoglobin of 5.5. After 3 units of red blood cell transfusion hemoglobin increased to 9.5 and has been stable since. Patient underwent colonoscopy, which showed colonic polyps as well as right adnexal mass, which was large, 6.[address] Patton was consulted for further management. CURRENT ISSUES: 1. 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 Biopsy is pending. Dr. Patton has been consulted to discuss surgical options with the patient and the daughter at the bedside, Mari Mckinnon. Patient's hemoglobin and hematocrit remained stable with no acute indication for red blood cell transfusion. No active signs of bleeding. Await biopsy of the pathology from Dr. Estrada's colonoscopy yesterday. 2. 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 CT abdomen and pelvis showed right cystic adnexal mass. Pelvic ultrasound recommended; therefore, will perform pelvic ultrasound today. CLINICAL RESOURCE COORDINATOR if needed if it turns out to be a CLINICAL RESOURCE COORDINATOR malignancy. 3. Atrial fibrillation, currently rate controlled off anticoagulation secondary to active bleed from the cecal mass. Continue with compression stockings for deep vein thrombosis (DVT) prophylaxis. 4. Atrial fibrillation is rate controlled off of anticoagulation due to active gastrointestinal (GI) bleed. Continue with metoprolol for rate control. 5. Hypertension. Continue on spironolactone and metoprolol. Appears to be stable on vital signs with systolic pressure 126-141. 6. History of type 2 diabetes. Consistent-carbohydrate diet. 7. History of spinal stenosis. No acute issues. 8. Hypothyroidism, on Synthroid. 9. History of hemorrhoids. As-needed Anusol. 10. Chronic neuropathy from diabetes, on chronic Lyrica.
--- NOTE | 2016-09-05 04:37 | CR ---
DATE OF CONSULTATION: 09/03/2016 CHIEF COMPLAINT: Colon mass. HISTORY OF PRESENT ILLNESS: The patient is an 86-year-old female who presented to the emergency room on 08/28/2016, with the chief complaint of dizziness. She had approximately 2-3 weeks of a bad respiratory infection. Since that time, she has been pale and feeling weak. She has also been having recent falls even with using a walker. Denies any bright red or dark tarry bowel movements. Guaiac was negative in the emergency room (ER). However, her hemoglobin was down to 5.5. She was transfused three units of blood and Dr. Estrada evaluated her and planned to do a colonoscopy. She had never had a previous colonoscopy in the past. During his scope on 09/03/2016, he found multiple polyps, as well as a mass in the cecum that was very large, but he was able to biopsy it and tattoo it. After the procedure, he consulted me to evaluate for possible colon mass and possible resection. The patient does have some dementia and is very hard of hearing; therefore, history was difficult to obtain. I was able to talk with the daughter who says that they have not noticed any bleeding in the past. She has never had a colonoscopy before. No problems with abdominal pain. No nausea, vomiting. No change in bowel movements. No family history of colon cancer that they are aware of. PAST MEDICAL HISTORY: 1. Spinal stenosis. 2. Diabetes. 3. Hypertension. 4. Chronic obstructive pulmonary disease (COPD). 5. Hypothyroidism. 6. Atrial fibrillation. 7. Hemorrhoids. 8. Neuropathy. PAST SURGICAL HISTORY: 1. Hysterectomy. 2. Back surgery. SOCIAL HISTORY: Denies any drug, alcohol, tobacco abuse. ALLERGIES: None. HOME MEDICATIONS: Please see medical record. REVIEW OF SYSTEMS: Pertinent positives and negatives as stated in the history of present illness (HPI). PHYSICAL EXAMINATION: General: Alert and oriented times three. No acute distress. Vital signs: Temperature 97.2, pulse 85, respirations 19, blood pressure 149/64, pulse oximetry 92% on room air. HEENT: Pupils equally round and react to light and accommodation. Heart: S1, S2, regular rate and rhythm. Lungs: Clear to auscultation bilaterally. Abdomen: Soft, nontender, nondistended. Bowel sounds positive. Extremities: No clubbing, cyanosis or edema. LABORATORY DATA: White count 7.8, hemoglobin 9.2, platelets 243. Potassium 3.4, calcium 7.8, creatinine 0.75. CEA pending. IMAGING STUDIES: Chest x-ray shows cardiomegaly with pulmonary venous hypertension, bibasilar fibroatelectatic changes without evidence of acute infiltrates. ASSESSMENT/PLAN: The patient is an 86-year-old female who came in with symptomatic anemia. She was found to have a large mass in her cecum on colonoscopy. I have discussed these findings with the daughter who is in agreement to do further testing to determine the extent of this. She does think that if we do testing that shows that this is likely metastatic they will likely avoid any type of surgery or chemotherapy. However, if it is potentially resectable and potentially curative with resection, then they would be in agreement to have surgery done. I told them that we will do our best to get some imaging to help us with that. However, overall prognosis would not be obtainable without having a surgical specimen. Daughter agrees and a CT abdomen and pelvis with contrast will be obtained this evening. CEA levels are also pending. Once we have those results back, I will discuss the findings of the CT with the daughter in the morning and if this is potentially resectable, we will plan for surgery on Thursday afternoon. Thank you for the consult. Further recommendations to follow CT.
[2016-09-05 05:30] VITALS: BP 132/58
[2016-09-05] MEDS: LEVOTHYROXINE 0.088 MG TAB (88 MCG) PO SCH (05:39)
[2016-09-05] MEDS: ALBUTEROL SULFATE 2.5 MG/0.5 ML INH NEB SOLN NEB SCH ×2 (07:28→20:11)
[2016-09-05] MEDS: cefTRIAXone SOD 2 GM in D5W MINI-BAG PLUS 50 ML IV SCH ×2 (08:32→20:50)
[2016-09-05] MEDS: HumaLOG INSULIN (NovoLOG) PER UNIT SC SCH ×4 (08:32→20:54)
[2016-09-05] MEDS: METOPROLOL TART 50 MG TAB PO SCH ×2 (08:33→20:54)
[2016-09-05] MEDS: PREGABALIN 100 MG CAP (LYRICA) PO SCH ×3 (08:33→20:50)
[2016-09-05] MEDS: FUROSEMIDE 40 MG TAB PO SCH (08:33)
[2016-09-05] MEDS: POLYVINYL ALCOHOL OPHTH SOLN 15 ML(LIQUITEARS) OU SCH ×2 (08:34→20:50)
[2016-09-05] MEDS: SPIRONOLACTONE 25 MG TAB PO SCH (08:34)
[2016-09-05] MEDS: ACETAMINOPHEN TAB 650MG DOSE (2X325MG) PO SCH ×3 (08:34→20:51)
[2016-09-05] MEDS: CYANOCOBALAMIN 500 MCG TAB PO SCH (08:34)
[2016-09-05 10:23] LABS: INR 1.06
[2016-09-05 10:29] LABS: BASO # 0.1 K/mm3 (0.0-0.2); BASO % 1.2 % (0.0-1.0); EOS # 0.4 K/mm3 (0.0-0.50); EOS % 6.3 % (0.0-3.0); LARGE UNSTAINED CELL # 0.2 K/mm3 (0.0-0.4); LARGE UNSTAINED CELL % 2.9 % (0.0-4.0); LYMPH # 1.9 K/mm3 (1.5-4.5); LYMPH % 24.4 % (24.0-44.0); MEAN CORPUSCULAR HEMOGLOBIN 24.1 pg (27.0-33.0); MEAN CORPUSCULAR HGB CONC 29.7 g/dl (32.0-36.5); MEAN CORPUSCULAR VOLUME 81.2 fl (80.0-96.0); MONO # 0.5 K/mm3 (0.0-0.8); MONO % 6.6 % (0.0-5.0); NEUTROPHILS % 58.6 % (36.0-66.0); PLATELET COUNT, AUTOMATED 260 k/mm3 (150-450); RED CELL DISTRIBUTION WIDTH 18.9 % (11.5-14.5); WHITE BLOOD COUNT 6.8 K/mm3 (4.0-10.0)
[2016-09-05 10:41] LABS: ANION GAP 8 MEQ/L (8-16); BLOOD UREA NITROGEN 7 MG/DL (7-18); CARBON DIOXIDE LEVEL 30 MEQ/L (21-32); CHLORIDE LEVEL 104 MEQ/L (98-107); CREATININE FOR GFR 0.87 MG/DL (0.55-1.02); GLOMERULAR FILTRATION RATE > 60.0 (>32); GLUCOSE, FASTING 159 MG/DL (83-110); POTASSIUM SERUM 3.9 MEQ/L (3.5-5.1); SODIUM LEVEL 142 MEQ/L (136-145)
[2016-09-05 14:00] VITALS: BP 136/61
[2016-09-05 20:20] VITALS: BP 120/50
[2016-09-05] MEDS: PANTOPRAZOLE 40MG INJ (PROTONIX) (C9113) IV SCH (20:50)
[2016-09-05] MEDS: LORATADINE 10 MG TAB PO SCH (20:51)
[2016-09-05] MEDS: traMADol 50 MG TAB PO SCH (20:51)
[2016-09-06] MEDS: ACETAMINOPHEN TAB 650MG DOSE (2X325MG) PO PRN (04:24)
[2016-09-06] MEDS: LEVOTHYROXINE 0.088 MG TAB (88 MCG) PO SCH (05:41)
[2016-09-06 05:45] VITALS: BP 172/78
[2016-09-06 06:47] VITALS: BP 125/60
[2016-09-06] MEDS: ALBUTEROL SULFATE 2.5 MG/0.5 ML INH NEB SOLN NEB SCH ×2 (07:15→19:28)
--- NOTE | 2016-09-06 08:01 | IPN ---
DATE: 09/05/2016 Patient seen and examined at the bedside. Chart has been reviewed. Denies any bright red blood per rectum, melena or black tarry stools. Denies any generalized weakness. Had four bowel movements yesterday, two this morning, solid formed stools. No dizziness, lightheadedness, chest pain, pressure or tightness, shortness of breath. VITAL SIGNS: Temperature 97.9, pulse 69, respiratory rate 17, blood pressure 132/58, 90% on room air. Generally, patient is awake, alert, oriented to person, place and time. Answering questions appropriately. No respiratory distress or use of respiratory accessory muscles. Pupils good, generally, no icterus, no jaundice, no jugular venous distention, thyromegaly or cervical lymphadenopathy. Multiple ecchymotic areas bilateral upper and lower extremities. Lungs are clear to auscultation. No wheezing, rales or rhonchi. Heart: S1, S2, sinus rhythm. Abdomen soft, nontender, nondistended. Positive bowed sounds times four quadrants. No rebound, guarding or hepatomegaly. Extremities: Positive edema, ecchymotic areas bilateral upper and lower extremities. LABORATORY DATA: White count 6.8, hemoglobin 9.4, hematocrit 31, platelet count 260. Sodium 142, potassium 3.9, chloride 104, bicarbonate 30, BUN 7, creatinine 0.87, and glucose 159. Pathology shows moderate to poorly differentiated colonic adenocarcinoma. CEA 7.3. ASSESSMENT AND PLAN: 86-year-old female, history of spinal stenosis, type 2 diabetes, hypertension, chronic obstructive pulmonary disease (COPD), hypothyroidism, atrial fibrillation, on chronic Xarelto, held due to active gastrointestinal (GI) bleed, hemorrhoids, neuropathy, presented with dizziness, black tarry stools, hemoglobin 5.5, admitted for symptomatic anemia. Transfused 3 units of blood. Underwent colonoscopy. It showed colonic polyps and right adnexal mass. CEA is elevated. Pathology shows moderately differentiated adenocarcinoma. Dr. Patton has been consulted. 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 Elevated CEA. Defer to Dr. Patton to discuss surgical options with the patient. Will look for a medical oncology consult for guidance and staging. Depending on whether surgical intervention can be planned, patient will be medically optimized. Currently atrial fibrillation is rated controlled. No signs of decompensation from chronic COPD. CURRENT ISSUES: 1. Moderately differentiated adenocarcinoma of the colon causing active GI bleed and symptomatic anemia. Dr. Patton, general surgeon has been consulted for surgical resection. Will consult medical oncology for chemotherapy options. Patient has good functional status. 2. Symptomatic anemia secondary to adenocarcinoma of the colon. Currently stable. Received 3 units of red blood cell transfusion and atrial fibrillation rate controlled. Off anticoagulation due to active GI bleed from colon cancer. 3. Hypertension. Controlled on spironolactone and metoprolol. 4. Type 2 diabetes. Depending on planned surgery, will keep nothing by mouth on IV fluids. We will try to coordinate with Dr. Patton. 5. History of spinal stenosis. No acute issues. 6. Hypothyroidism. On Synthroid. 7. Chronic neuropathy. On chronic Lyrica.
[2016-09-06 08:05] VITALS: BP 155/69
[2016-09-06] MEDS: PREGABALIN 100 MG CAP (LYRICA) PO SCH ×3 (08:54→20:42)
[2016-09-06] MEDS: HumaLOG INSULIN (NovoLOG) PER UNIT SC SCH ×4 (08:54→20:33)
[2016-09-06] MEDS: CYANOCOBALAMIN 500 MCG TAB PO SCH (08:54)
[2016-09-06] MEDS: cefTRIAXone SOD 2 GM in D5W MINI-BAG PLUS 50 ML IV SCH ×2 (08:54→20:41)
[2016-09-06] MEDS: SPIRONOLACTONE 25 MG TAB PO SCH (08:55)
[2016-09-06] MEDS: FUROSEMIDE 40 MG TAB PO SCH (08:55)
[2016-09-06] MEDS: ACETAMINOPHEN TAB 650MG DOSE (2X325MG) PO SCH ×3 (08:56→20:42)
[2016-09-06] MEDS: METOPROLOL TART 50 MG TAB PO SCH ×2 (09:00→20:43)
[2016-09-06] MEDS: POLYVINYL ALCOHOL OPHTH SOLN 15 ML(LIQUITEARS) OU SCH ×2 (09:01→20:44)
[2016-09-06] MEDS: KETOCONAZOLE 2% CREAM TOP SCH ×2 (09:02→20:45)
[2016-09-06 14:00] VITALS: BP 142/64
[2016-09-06 20:25] VITALS: BP 161/72
[2016-09-06] MEDS: PANTOPRAZOLE 40MG INJ (PROTONIX) (C9113) IV SCH (20:41)
[2016-09-06] MEDS: traMADol 50 MG TAB PO SCH (20:42)
[2016-09-06] MEDS: LORATADINE 10 MG TAB PO SCH (20:43)
[2016-09-07 05:50] VITALS: BP 165/74
[2016-09-07] MEDS: LEVOTHYROXINE 0.088 MG TAB (88 MCG) PO SCH (05:54)
[2016-09-07] MEDS: ALBUTEROL SULFATE 2.5 MG/0.5 ML INH NEB SOLN NEB SCH ×2 (07:11→19:25)
[2016-09-07] MEDS: HumaLOG INSULIN (NovoLOG) PER UNIT SC SCH ×4 (08:07→21:00)
[2016-09-07] MEDS: cefTRIAXone SOD 2 GM in D5W MINI-BAG PLUS 50 ML IV SCH ×2 (08:08→20:13)
[2016-09-07] MEDS: SPIRONOLACTONE 25 MG TAB PO SCH (08:08)
[2016-09-07] MEDS: CYANOCOBALAMIN 500 MCG TAB PO SCH (08:09)
[2016-09-07] MEDS: ACETAMINOPHEN TAB 650MG DOSE (2X325MG) PO SCH ×3 (08:09→20:10)
[2016-09-07] MEDS: POLYVINYL ALCOHOL OPHTH SOLN 15 ML(LIQUITEARS) OU SCH ×2 (08:10→20:13)
[2016-09-07] MEDS: FUROSEMIDE 40 MG TAB PO SCH (08:10)
[2016-09-07] MEDS: PREGABALIN 100 MG CAP (LYRICA) PO SCH ×3 (08:10→20:11)
[2016-09-07] MEDS: KETOCONAZOLE 2% CREAM TOP SCH ×2 (08:11→20:14)
[2016-09-07] MEDS: METOPROLOL TART 50 MG TAB PO SCH ×2 (08:12→20:11)
[2016-09-07 08:22] LABS: MEAN CORPUSCULAR HEMOGLOBIN 24.5 pg (27.0-33.0); MEAN CORPUSCULAR HGB CONC 30.7 g/dl (32.0-36.5); MEAN CORPUSCULAR VOLUME 79.6 fl (80.0-96.0); RED CELL DISTRIBUTION WIDTH 18.8 % (11.5-14.5); WHITE BLOOD COUNT 7.9 K/mm3 (4.0-10.0)
[2016-09-07 08:36] LABS: ANION GAP 8 MEQ/L (8-16); BLOOD UREA NITROGEN 12 MG/DL (7-18); CARBON DIOXIDE LEVEL 29 MEQ/L (21-32); CHLORIDE LEVEL 106 MEQ/L (98-107); CREATININE FOR GFR 0.88 MG/DL (0.55-1.02); GLOMERULAR FILTRATION RATE > 60.0 (>32); GLUCOSE, FASTING 141 MG/DL (83-110); POTASSIUM SERUM 3.5 MEQ/L (3.5-5.1); SODIUM LEVEL 143 MEQ/L (136-145)
[2016-09-07] MEDS ORDERED: GOLYTELY SOLN 4000 ML BTL PO ONE (09:00)
[2016-09-07] MEDS: LR 1,000 ML IV SCH ×3 (11:09→20:20)
[2016-09-07 14:00] VITALS: BP 156/70
--- NOTE | 2016-09-07 14:22 | IPN ---
DATE: 09/06/2016 Patient is seen and examined at the bedside. Chart has been reviewed. She currently denies any bright red blood per rectum, melena or black tarry stools. Denies any hematemesis. Complains of generalized weakness. Denies shortness of breath, palpitations, lightheadedness, or near syncopal episode. The patient has not yet decided whether to undergo surgical intervention for the adenocarcinoma of the cecal mass. Currently, she has had her atrial fibrillation controlled, currently sinus rhythm during telemetry monitoring. No prior history of congestive heart failure (CHF). VITAL SIGNS: Temperature 97.8, pulse 64, respiratory rate 18, blood pressure 161/73, 94% on room air. GENERAL: Awake, alert, oriented times three. Answering questions appropriately. She has no pallor. No icterus. No jaundice. No use of respiratory accessory muscles. Pupils are round and reactive to light and accommodation. Extraocular muscles are intact. Normocephalic, atraumatic. LUNGS: Clear to auscultation. No wheezes, rales, or rhonchi. HEART: S1, S2. Sinus rhythm. ABDOMEN: Soft, nontender, nondistended. Positive bowel sounds. EXTREMITIES: No cyanosis, clubbing. LABORATORY DATA: White count 6.8, hemoglobin 9.5, hematocrit 31, platelet count 260. Sodium 142, potassium 3.9, chloride 104, bicarbonate 30, BUN 7, creatinine 0.87, and glucose 159. Microbiology: Enterobacter in the urine culture. ASSESSMENT AND PLAN: This is an 86-year-old female with a history of spinal stenosis, type 2 diabetes, hypertension, chronic obstructive pulmonary disease (COPD), hypothyroidism, atrial fibrillation, on chronic Xarelto, held due to active gastrointestinal (GI) bleed, hemorrhoids, neuropathy, presented with symptomatic anemia with black tarry stools and dizziness, hemoglobin 5.5. The patient was transfused 3 units of blood. Underwent colonoscopy. It showed colonic polyps and right adnexal mass and cecal mass. CEA was slightly elevated. Pathology of the colonic mass showed moderately differentiated adenocarcinoma of the colon. Dr. Patton, general surgery, has been consulted. CURRENT ISSUES: 1. Moderately to poorly differentiated colonic adenocarcinoma with elevated CEA level. At this time, family is deciding whether or not to pursue surgical intervention, chemotherapy if needed. The patient will need to be medically optimized. She has a prior history of paroxysmal atrial fibrillation and chronic obstructive pulmonary disease (COPD), but appears to be well compensated. At this time, I will defer to Dr. Patton to discuss other surgical options. We will need to consult medical oncology once the family has decided on surgical resection for guidance and staging, depending on whether surgical intervention is requested. The patient will be medically optimized. We will proceed with obtaining an echocardiogram in light of known history of paroxysmal atrial fibrillation. No significant murmur noted on clinical examination, but we will rule out with echo. 2. Symptomatic anemia secondary to adenocarcinoma of the colon. Received 3 units of red blood cell. Xarelto for atrial fibrillation has been discontinued due to active bleeding. 3. Preoperative medical clearance. Awaiting echocardiogram. The patient is currently compensated from her COPD. Atrial fibrillation is currently sinus rhythm and rate controlled. Hypertension is stable. The patient would be intermediate risk for surgery. This has been discussed with the patient and patient's family at the bedside. Due to her severely advanced age, it will depend on her functional status prior to hospitalization. 4. Hypertension. Controlled on spironolactone and metoprolol. 5. Type 2 diabetes. At this time, the patient is stabilized. Continue on consistent carbohydrate diet. We will need to hold all oral hypoglycemics prior to surgery if the patient's family and the patient have decided on pursuing surgical intervention. 5. History of spinal stenosis. No acute issues. 6. Hypothyroidism. On Synthroid. 7. Chronic neuropathy. On chronic Lyrica. DISPOSITION: The patient will be intermediate risk for surgery, but will be medically optimized. She currently has no prior history of congestive heart failure (CHF). Not experiencing acute coronary syndrome, but will be optimized with her blood pressure to proceed to surgery if they opt to have this done. She is currently on beta blockade with Lopressor 50 mg twice a day. Her atrial fibrillation is rate controlled. Currently sinus rhythm.
[2016-09-07] MEDS: LORATADINE 10 MG TAB PO SCH (20:10)
[2016-09-07] MEDS: traMADol 50 MG TAB PO SCH (20:12)
[2016-09-07] MEDS: PANTOPRAZOLE 40MG INJ (PROTONIX) (C9113) IV SCH (20:13)
[2016-09-07 22:00] VITALS: BP 165/69
[2016-09-08 06:00] VITALS: BP 143/67
[2016-09-08] MEDS: LEVOTHYROXINE 0.088 MG TAB (88 MCG) PO SCH (06:00)
[2016-09-08 06:05] LABS: ANION GAP 9 MEQ/L (8-16); BLOOD UREA NITROGEN 7 MG/DL (7-18); CALCIUM LEVEL 7.1 MG/DL (8.8-10.2); CARBON DIOXIDE LEVEL 30 MEQ/L (21-32); CHLORIDE LEVEL 105 MEQ/L (98-107); CREATININE FOR GFR 0.69 MG/DL (0.55-1.02); GLOMERULAR FILTRATION RATE > 60.0 (>32); GLUCOSE, FASTING 135 MG/DL (83-110); POTASSIUM SERUM 3.2 MEQ/L (3.5-5.1); SODIUM LEVEL 144 MEQ/L (136-145)
[2016-09-08 06:26] LABS: MEAN CORPUSCULAR HEMOGLOBIN 23.4 pg (27.0-33.0); MEAN CORPUSCULAR HGB CONC 29.6 g/dl (32.0-36.5); RED CELL DISTRIBUTION WIDTH 18.4 % (11.5-14.5); WHITE BLOOD COUNT 6.3 K/mm3 (4.0-10.0)
[2016-09-08] MEDS ORDERED: POTASSIUM CHLORIDE 10 MEQ SR TABLET PO ONE (07:30)
[2016-09-08] MEDS: HumaLOG INSULIN (NovoLOG) PER UNIT SC SCH ×4 (07:30→20:24)
[2016-09-08] MEDS: cefTRIAXone SOD 2 GM in D5W MINI-BAG PLUS 50 ML IV SCH (07:34)
[2016-09-08] MEDS: LR 1,000 ML IV SCH (07:34)
[2016-09-08] MEDS: CYANOCOBALAMIN 500 MCG TAB PO SCH (07:35)
[2016-09-08] MEDS: ACETAMINOPHEN TAB 650MG DOSE (2X325MG) PO SCH ×3 (07:35→21:00)
[2016-09-08] MEDS: SPIRONOLACTONE 25 MG TAB PO SCH (07:36)
[2016-09-08] MEDS: FUROSEMIDE 40 MG TAB PO SCH (07:36)
[2016-09-08] MEDS: amLODIPine 5 MG TAB PO SCH ×2 (07:36→21:00)
[2016-09-08] MEDS: PREGABALIN 100 MG CAP (LYRICA) PO SCH ×3 (07:36→21:11)
[2016-09-08] MEDS: METOPROLOL TART 50 MG TAB PO SCH ×2 (07:37→21:00)
[2016-09-08] MEDS: ALBUTEROL SULFATE 2.5 MG/0.5 ML INH NEB SOLN NEB SCH ×2 (07:37→20:00)
[2016-09-08] MEDS: POLYVINYL ALCOHOL OPHTH SOLN 15 ML(LIQUITEARS) OU SCH ×2 (08:46→20:33)
[2016-09-08] MEDS: KCL 10MEQ IN D5/0.45NS 1000ML 1,000 ML IV SCH ×2 (09:21→20:29)
[2016-09-08] MEDS ORDERED: MIDAZOLAM INJ 2 MG/2 ML VIAL (J2250) As Ordered ONE (13:41)
[2016-09-08] MEDS ORDERED: LIDOCAINE 2% INJ 100 MG/5 ML SDV (FOR ANES.) As Ordered ONE (13:41)
[2016-09-08] MEDS ORDERED: fentaNYL 250 MCG/5 ML INJECTION (J3010) As Ordered ONE (13:41)
[2016-09-08] MEDS ORDERED: PROPOFOL 200 MG/20 ML VIAL As Ordered ONE (13:41)
[2016-09-08] MEDS ORDERED: ROCURONIUM BROMIDE 50 MG/5 ML VIAL As Ordered ONE ×2 (13:41→16:22)
[2016-09-08 14:00] VITALS: BP 155/67
[2016-09-08] MEDS: ERTAPENEM SODIUM 1 GM in NS MINI-BAG PLUS 50 ML IV SCH (14:00)
[2016-09-08] MEDS ORDERED: PHENYLephrine HCL 500 MCG/5 ML (100MCG/ML) SYRINGE (J2370) As Ordered ONE (15:16)
[2016-09-08] MEDS ORDERED: ePHEDrine SULFATE 25 MG/5 ML(5MG/ML) SYRINGE As Ordered ONE ×2 (15:16→15:38)
[2016-09-08] MEDS ORDERED: ONDANSETRON 4MG/2ML VIAL (J2405) As Ordered ONE ×2 (15:46→19:45)
[2016-09-08] MEDS ORDERED: NEOSTIGMINE 1MG/ML 5 ML SYRINGE (J2710) As Ordered ONE (16:56)
[2016-09-08] MEDS ORDERED: GLYCOPYRROLATE INJ 0.2 MG/ML 2 ML VIAL As Ordered ONE (16:56)
[2016-09-08] MEDS ORDERED: MORPHINE 2 MG/ML 1ML SYRINGE IV PRN ×2 (18:00→18:30)
[2016-09-08] MEDS ORDERED: FUROSEMIDE 20 MG/2 ML VIAL (J1940) As Ordered ONE (18:16)
[2016-09-08] MEDS ORDERED: LEVALBUTEROL 1.25 MG/0.5 ML CONCENTRATE NEB As Ordered ONE ×2 (18:25→18:26)
[2016-09-08] MEDS ORDERED: LR 1,000 ML IV SCH (18:30)
[2016-09-08] MEDS ORDERED: fentaNYL 100 MCG/2 ML INJECTION (J3010) IV PRN (18:30)
[2016-09-08] MEDS ORDERED: ONDANSETRON 4MG/2ML VIAL (J2405) IV PRN (18:30)
[2016-09-08 18:34] LABS: ABG BASE EXCESS 5.5 (-2.0-2.0); ABG HCO3 32.2 MEQ/L (22.0-26.0); ABG PARTIAL PRESSURE CO2 58.3 mmHg (35.0-45.0); ABG PARTIAL PRESSURE O2 170.7 mmHg (75.0-100.0); ABG STANDARD HCO3 29.4 MEQ/L (22.0-26.0)
[2016-09-08] MEDS ORDERED: FUROSEMIDE 20 MG/2 ML VIAL (J1940) IV ONE (18:45)
[2016-09-08] MEDS ORDERED: LEVALBUTEROL 1.25 MG/0.5 ML CONCENTRATE NEB NEB ONE (18:45)
--- NOTE | 2016-09-08 19:07 | REP ---
Chest x-ray: AP semi-erect view: History: Postoperative evaluation. Comparison study 08/28/2016. Findings: The patient is status post cervical discectomy and posterior element fusion. There is a mild levoconvex curve in the upper thoracic spine unchanged. The lungs are symmetrically aerated and clear. Heart is enlarged unchanged from comparison study. No infiltrate is seen. Impression: Cardiomegaly. No infiltrate seen. Signed by Sreedhar Gilmore MD 09/08/2016 07:23 P
[2016-09-08] MEDS ORDERED: PHENYLEPHRINE INJ 10MG/ML VIAL (J2370) IV SCH (19:45)
[2016-09-08 20:15] VITALS: BP 166/71
[2016-09-08] MEDS ORDERED: PHENYLEPHRINE INJ 10MG/ML VIAL (J2370) As Ordered ONE (20:38)
[2016-09-08] MEDS ORDERED: PHENYLEPHRINE HCL INJ 50 MG in D5W 500 ML IV SCH (20:45)
[2016-09-08 21:00] VITALS: BP 142/64
[2016-09-08] MEDS: traMADol 50 MG TAB PO SCH (21:00)
[2016-09-08] MEDS: LORATADINE 10 MG TAB PO SCH (21:10)
[2016-09-08] MEDS: NORCO, ANEXSIA 5/325MG TABLET (HYDROcodone/ACETAMINOPHEN) PO PRN (21:10)
[2016-09-08] MEDS: PANTOPRAZOLE 40MG INJ (PROTONIX) (C9113) IV SCH (21:11)
--- NOTE | 2016-09-08 21:44 | IPN ---
DATE: 09/07/2016 Patient is seen and examined at the bedside. Chart has been reviewed. Denies any chest pain, pressure, tightness, shortness of breath, palpitations, lightheadedness, nausea, vomiting, hematemesis, bright red blood per rectum, melena, black tarry stools, generalized weakness and fatigue. No other issues per nursing overnight. Temperature 97.1, pulse 71, respiratory rate 17, blood pressure 165/74, 93% on room air. Generally, patient is awake, alert, oriented, answering questions appropriately. No cyanosis or use of respiratory accessory muscles. Neck supple, full range of motion, no cervical lymphadenopathy or thyromegaly. Lungs are clear to auscultation, no wheezing, rales, or rhonchi. Heart S1, S2, sinus rhythm. Abdomen is soft, nontender, nondistended. Extremities no pitting edema. 09/05/2016, CBC and metabolic panel have been reviewed. Labs today are still pending. ASSESSMENT AND PLAN: This is an 86-year-old female with history of spinal stenosis, type 2 diabetes, hypertension, chronic obstructive pulmonary disease (COPD), hypothyroidism, atrial fibrillation on chronic Xarelto, held due to active gastrointestinal (GI) bleed, hemorrhoids, and neuropathy, presented with symptomatic anemia with dizziness, black tarry stools, hemoglobin 5.5, transfused 3 units of red blood cells, underwent colonoscopy which showed colonic polyps and right adnexal mass, carcinoembryonic antigen (CEA) is elevated, pathology showed moderately differentiated adenocarcinoma of the colon. Dr. Patton, general surgery, has been consulted. Pelvic ultrasound also shows adnexal mass, which appears to be cystic. CURRENT ACTIVE ISSUES: 1. Moderately to poorly differentiated colonic adenocarcinoma with elevated carcinoembryonic antigen (CEA). Family is deciding whether to proceed with surgical resection as the patient is advanced in age and currently asymptomatic aside from admission symptomatic anemia with dizziness. At this time, once the patient has decided on surgical resection, will consult medical oncology and proceed with staging. 2. Preoperative medical clearance. Currently has no decompensated congestive heart failure (CHF), myocardial infarction (NC), or acute ischemic symptoms. Despite the age of 86, patient has fair functional status. Will optimize medically by improving blood pressure control, therefore will add Norvasc 2.5 mg twice a day. Otherwise, patient is on metoprolol, heart rate is well controlled from the atrial fibrillation standpoint. She has been off of the Xarelto due to active gastrointestinal (GI) bleed. If patient's family decides to proceed with surgery, will proceed with staging and once the blood pressure is less than 150 she would be medically cleared to proceed to surgery. 3. Type 2 diabetes. Depending on date of planned surgery, will keep nothing by mouth 12 hours prior. Hyperglycemic protocol for now. Continue on consistent carbohydrate and no added salt diet. 4. Hypertension, on spironolactone, metoprolol, and Norvasc for better blood pressure control. 5. Hypothyroidism, on Synthroid. 6. History of spinal stenosis. No acute issues. 7. History of atrial fibrillation, on chronic Xarelto, has been held due to active gastrointestinal (GI) bleed. 8. Active gastrointestinal bleed (GI) bleed, secondary to colon cancer. No acute indication for red blood cell transfusion. Patient did receive 3 units of red blood cells. 9. Urine culture with Enterobacter, on intravenous (IV) ceftriaxone. MTDD
[2016-09-08 22:00] VITALS: BP 131/63
[2016-09-09] VITALS (9 sets, daily range): BP systolic 107–145; BP diastolic 50–65
--- NOTE | 2016-09-09 03:19 | IPN ---
DATE OF SERVICE: 09/08/2016 Patient is seen and examined at the bedside. Chart has been reviewed. No complaints of chest pain, pressure, tightness, shortness of breath, nausea, vomiting, diarrhea, black tarry stools, melena. Patient is undergoing GoLYTELY colon preparation for surgical resection of adenocarcinoma of the cecum. Temperature 96.8, pulse 64, respiratory rate 18, blood pressure 143/67, 90% on room air. Generally awake, alert, oriented times three. No respiratory distress. Speaks in full sentences. Answering questions appropriately. No pallor, icterus, jaundice. No use of respiratory accessory muscles. No conversational dyspnea. Pupils equally round, reactive to light and accommodation. Extraocular muscles intact. Normocephalic, atraumatic. Lungs are clear to auscultation, no wheezing, rales, or rhonchi. Heart S1, S2, sinus rhythm. No murmurs, rubs or gallops. Abdomen is soft, nontender, nondistended. Positive bowel sounds times four quadrants. Extremities no cyanosis, clubbing or pitting edema. LABORATORY DATA: White count 6.3, hemoglobin 8.5, hematocrit 28.7, platelet count 299. Sodium 144, potassium 3.2, chloride 105, bicarbonate 30, BUN 7, creatinine 0.69, glucose 135. Urine culture Enterobacter cloacae. Gastrointestinal (GI) panel 09/05 negative. ASSESSMENT AND PLAN: This is an 86-year-old female with history of type 2 diabetes, hypertension, chronic obstructive pulmonary disease (COPD), atrial fibrillation on chronic Xarelto, hypothyroidism, spinal stenosis, presents with symptomatic anemia with black tarry stools and dizziness, hemoglobin of 5.5. Patient was transfused 3 units of red blood cells, underwent colonoscopy showing right adnexal mass and cecal mass. Carcinoembryonic antigen (CEA) was elevated. Pathology of colonic mass showed moderately differentiated adenocarcinoma of the colon. Dr. Patton, general surgery, has been consulted. CURRENT ISSUES: 1. Preoperative medical clearance. Patient is medically stabilized to proceed to surgery. She has no prior history of coronary artery disease (CAD), myocardial infarction (VT), currently has no acute ischemic symptoms or symptoms of congestive heart failure. Patient is medically optimized. Will add Norvasc for better blood pressure control. Continue metoprolol. 2. Moderately to poorly differentiated colonic adenocarcinoma with elevated CEA. Patient has family history of colon cancer. At this time, patient has opted for surgical resection. She is medically optimized to proceed. Dr. Patton will take her to the operating room. We will consult medical oncology for chemotherapy needs, as well as proceed with staging with bone scan, CT of the head, CT chest. 3. Symptomatic anemia secondary to adenocarcinoma of the colon. Received 3 units of red blood cells. Currently asymptomatic. Xarelto for atrial fibrillation has been discontinued due to active gastrointestinal (GI) bleed. 4. Active GI bleed secondary to colon cancer. Currently stable on intravenous (IV) fluids for surgical resection of the colon adenocarcinoma. 5. Hypertension. On metoprolol. Will add Norvasc for better blood pressure control. 6. Type 2 diabetes. Nothing by mouth. Hyperglycemic protocol and insulin sliding scale. 7. History of spinal stenosis. No acute issues. 8. Hypothyroidism. On Synthroid. 9. Chronic neuropathy. Chronic Lyrica. MTDD
[2016-09-09] MEDS: KCL 10MEQ IN D5/0.45NS 1000ML 1,000 ML IV SCH ×3 (03:47→17:57)
[2016-09-09 05:20] LABS: MEAN CORPUSCULAR HGB CONC 30.1 g/dl (32.0-36.5); MEAN CORPUSCULAR VOLUME 79.8 fl (80.0-96.0); RED CELL DISTRIBUTION WIDTH 18.6 % (11.5-14.5); WHITE BLOOD COUNT 13.5 K/mm3 (4.0-10.0)
[2016-09-09] MEDS: LEVOTHYROXINE 0.088 MG TAB (88 MCG) PO SCH (05:53)
[2016-09-09] MEDS: HumaLOG INSULIN (NovoLOG) PER UNIT SC SCH ×4 (07:30→20:45)
[2016-09-09 07:42] LABS: ANION GAP 8 MEQ/L (8-16); BLOOD UREA NITROGEN 7 MG/DL (7-18); CALCIUM LEVEL 6.8 MG/DL (8.8-10.2); CARBON DIOXIDE LEVEL 31 MEQ/L (21-32); CHLORIDE LEVEL 101 MEQ/L (98-107); GLOMERULAR FILTRATION RATE > 60.0 (>32); GLUCOSE, FASTING 160 MG/DL (83-110); SODIUM LEVEL 140 MEQ/L (136-145)
[2016-09-09] MEDS: ALBUTEROL SULFATE 2.5 MG/0.5 ML INH NEB SOLN NEB SCH ×2 (07:50→20:53)
[2016-09-09 07:51] LABS: MAGNESIUM LEVEL 0.8 MG/DL (1.8-2.4)
[2016-09-09] MEDS: MAG SULF 1GM/100ML (MAG RUN) 1 GM in APPROPRIATE DILUENT 1 EA IV SCH ×2 (08:32→10:14)
[2016-09-09] MEDS: SPIRONOLACTONE 25 MG TAB PO SCH (08:36)
[2016-09-09] MEDS: amLODIPine 5 MG TAB PO SCH (08:37)
[2016-09-09] MEDS: METOPROLOL TART 50 MG TAB PO SCH ×2 (08:38→20:45)
[2016-09-09] MEDS: ACETAMINOPHEN TAB 650MG DOSE (2X325MG) PO SCH ×4 (08:53→20:39)
[2016-09-09] MEDS: CYANOCOBALAMIN 500 MCG TAB PO SCH (08:53)
[2016-09-09] MEDS: PREGABALIN 100 MG CAP (LYRICA) PO SCH ×3 (08:53→20:39)
[2016-09-09] MEDS: MAGNESIUM OXIDE 400 MG TAB (MAG-OX) PO SCH ×2 (08:53→20:38)
[2016-09-09] MEDS: FUROSEMIDE 40 MG TAB PO SCH (08:54)
[2016-09-09] MEDS: POLYVINYL ALCOHOL OPHTH SOLN 15 ML(LIQUITEARS) OU SCH ×2 (08:54→20:51)
--- NOTE | 2016-09-09 10:57 | RO ---
DATE OF PROCEDURE: 09/08/2016 PREOPERATIVE DIAGNOSIS: Right cecal mass, right colon cancer. POSTOPERATIVE DIAGNOSIS: Right cecal mass, right colon cancer. PROCEDURE: Laparoscopic right hemicolectomy. SURGEON: Dr. Guanaco Patton GENERAL FORECASTER: Dr. Gonzales ANESTHESIA: General. ESTIMATED BLOOD LOSS: 15. COMPLICATIONS: None. INDICATIONS FOR PROCEDURE: The patient is an 86-year-old female who presents with symptomatic anemia and found to have a cecal mass on colonoscopy. Biopsy came back positive for adenocarcinoma. She also had a right ovarian cyst about 6.[address] that appeared to be noncancerous with negative tumor markers. Recommendation from obstetrics (OB) was to have it removed at the time of surgery to prevent need for reoperation in the future. Therefore, Dr. Hoffmann planned on coming in as well to do a right oophorectomy during this procedure. So the recommendation was to proceed with laparoscopic possible open right hemicolectomy. The risks and benefits of the procedure, not limited to, but including bleeding, infection, hernia formation, damage to surrounding structures, anastomotic leak and possible need for further surgery. They understood and agreed to surgery and the granddaughter who is the durable power of detail drafter (DPOA) signed consent for her. PROCEDURE: The patient was brought back to operating room three after sufficient sedation and the abdomen was sterilely prepped and draped. Orogastric (OG) was placed as well as a Perez catheter. Next, the abdomen sterilely prepped and draped. Next, a time-out was done to confirm proper patient and proper procedure. Following that, a 5 mm incision was made in left upper quadrant. Veress needle was inserted and the abdomen was insufflated to 15 mm of mercury. Next, the Veress needle was removed. 5 mm Optiview port was used to gain access to the abdomen. Following that, an 11 mm supraumbilical incision was made and an 11 mm port was placed, another 5 mm port suprapubically and another 5 mm port in the right upper quadrant. Next, Dr. Hoffmann started and was able to take out the right ovary using Enseal. Upon completion of that, he left the ovary in the pelvis for us to take out at the end of the procedure. Next, using Enseal, we started at the appendix, dissected through the mesoappendix and around the base of the cecum, taking down all the peritoneal reflections both laterally and posteriorly. This was completed all way up along the right side of the colon to the hepatic flexure. Next, the omentum was bisected about 10 cm to transverse colon. The hepatocolic ligament was then taken down. All of the attachments were taken down from the right colon. The right colon was carefully dissected away from both the duodenum and the right kidney. Once the mobilization had been completed enough to pull the right colon towards the midline, the 11 mm port site of the abdomen was extended about 3 cm. The Nick wound protector was then placed. The colon was brought out through the incision. The rest of the mesocolon was taken down using the Enseal. The ileocolic artery and the right colic artery were both doubly clamped with Kellys and cut with sharp scissors and then suture ligated with #0 Vicryl sutures. Once this was completed and all the mesoappendix was taken down, the terminal ileum and the mid transverse colon were brought [id number]. An enterotomy and colotomy were created. The ROSEANNA 100 stapler was then passed inside of the colon and the terminal ileum and a [id number] anastomosis was created. Next the enterotomy and colotomy were then taken down with the ROSEANNA 100 stapler as well, thus completing the anastomosis. The suture lines were then oversewn with #A3-0 silk sutures and covered up with a layer of Tisseel. The anastomosis was then gently placed back inside the abdomen and laid down in the right upper quadrant. A 19-Danish Marck was then placed just next to the anastomosis and brought out through the right upper quadrant 5 mm port site. Next, the ovary was brought out through the incision. The fascia at the umbilical incision site was then closed with interrupted [id number] #0 Vicryl sutures. Subcutaneous tissues were brought together with interrupted #3-0 Vicryl sutures. Skin incision was brought together with chris. The drain was sutured in place with a #3-0 silk suture. The two other port sites were closed with chris. The abdomen was then cleaned and dried, 4x4 and tape were applied, thus ending the procedure.
--- NOTE | 2016-09-09 11:36 | IPN ---
DATE: 09/09/2016 SUBJECTIVE: Patient is seen and examined in the room. Patient's daughter is also present in the room. Patient stated she feels tired and she feels some minor discomfort at the surgical site, otherwise there is no acute complaints. Patient is still on oxygen support. Patient had hypotension after the surgery, therefore patient was observed in the intensive care unit (ICU). The lowest blood pressure was 88/43 with a mean arterial pressure (MAP) of 58. Patient has been receiving intravenous (IV) fluid. After midnight, patient's blood pressure has been stable with a MAP consistently around 75. No overnight events are reported. OBJECTIVE: VITAL SIGNS: Temperature 98.6, pulse 77, respiration rate 20, blood pressure 112/57, pulse oximetry 98% with 4 liters nasal cannula. GENERAL: No sign of acute distress. Alert and oriented times three. HEENT: Normocephalic, atraumatic. Extraocular motors grossly intact. CARDIOVASCULAR: Positive S1, S2, regular rate. LUNGS: Clear to auscultation bilaterally. ABDOMEN: Mild tenderness to palpation, otherwise soft. EXTREMITIES: No edema, no cyanosis. LABORATORY DATA: WBC 13.5, hemoglobin 8.9, hematocrit 29.7, platelet count 327. Sodium 140, potassium 4, chloride 101, carbon dioxide 31, BUN 7, creatinine 0.8, GFR greater than 60, fasting glucose 160, calcium 6.8, magnesium 0.8. ASSESSMENT AND PLAN: 1. Poorly differentiated colonic adenocarcinoma. Patient had surgical removal by general surgeon, Dr. Patton, on 09/08/2016. After the procedure patient had hypotension, however it has resolved with intravenous (IV) fluid and currently we will try to wean patient off the oxygen. Pain control, diet, and anticoagulation per the surgical team. I have consulted Dr. Karen Ha, medical oncologist, and talked to her about tumor marker staining. For the slides, tumor markers for KRAS, NRAS, and MMR with be added to the pathology slides. 2. Symptomatic anemia secondary to adenocarcinoma of the colon. Patient has a history of 3 units of blood transfusion on 08/28/2016 and 08/29/2016. Since then, patient's hemoglobin and hematocrit has remained stable. On the day of admission, patient had a hemoglobin of 5.5. Currently patient's hemoglobin and hematocrit has remained around 9. 3. Hypertension. Before surgery patient has been taking metoprolol and Coreg. Due to the severe hypotension, patient's blood pressure has been on hold. Will discontinue the Coreg and there is a holding parameter for the metoprolol. Currently patient's blood pressure has been in the normal range. 4. Type 2 diabetes. Patient is on sliding scale and will defer diet to the surgical team. 5. History of spinal stenosis, stable. 6. Hypothyroidism, on Synthroid. 7. Chronic neuropathy, on Lyrica. 8. Deep venous thrombosis (DVT) prophylaxis. Per surgical team. Currently patient has thromboembolism deterrents (TEDs) and sequential compression device.
[2016-09-09] MEDS: ERTAPENEM SODIUM 1 GM in NS MINI-BAG PLUS 50 ML IV SCH (14:01)
--- NOTE | 2016-09-09 18:33 | ECHO ---
DATE OF PROCEDURE: 09/09/2016 AGE: 86 GENDER: Female HEIGHT: 64 inches WEIGHT: 167 pounds BODY SURFACE AREA: 1.82 m2. PATIENT LOCATION: Inpatient, ICU, room 3203 REFERRING PHYSICIAN: Keerthi Mendez MD INDICATION: Dyspnea. 2-D MEASUREMENTS: RV: 2.9 cm LV: 4.1 cm Septum: 1.2 cm Posterior wall: 1.2 cm Aortic root: 2.3 cm LA: 4.1 cm LVEF: 65% DOPPLER MEASUREMENTS: AV: 1.8 m/s LVOT: 1.2 m/s LVOT diameter: 1.9 cm MV-E: 92, A: 120, EA ratio: 0.8 Early mitral deceleration time: 239 ms E prime: 4.1, A prime: 7.8, EA prime ratio: 22.4 PV: 0.8 m/s Pulmonary artery acceleration time: 116 ms RVSP: 55 mmHg IVC: 1.7 cm COMMENTS: Normal sinus rhythm without intraventricular conduction disturbance. Mildly dilated left atrium, but normal left ventricular size. Right heart chamber sizes also appeared to be normal. LV wall thickness was mildly increased symmetrically. The moderator band and right ventricular free wall also appeared to be at least mildly hypertrophied. On real-time imaging from the parasternal and apical projections, wall motion was symmetrical and normal to hyperkinetic. Mild mitral annular calcification with slightly thickened leaflet edges, but adequate leaflet excursion and no posterior systolic buckling. Three equal size aortic cusps with mildly thickened cusp edges, but adequate cusp separation. Normal aortic root size. No apparent intracardiac mass or pericardial effusion. Color flow Doppler study taken from the parasternal and apical projections showed very mild aortic and mitral insufficiency with mild to moderate tricuspid insufficiency. Guided continuous wave Doppler of her aortic valve showed a normal peak systolic velocity against LV outflow tract obstruction. Pulsed and continuous wave Doppler of her LV inflow tract taken from the apical four-chamber projection showed normal diastolic filling velocities against mitral stenosis. There was more prominent late diastolic/atrial dependent filling pattern. Diastolic dysfunction was further confirmed by prolonged early mitral deceleration time and tissue Doppler of her mitral annulus. Her current estimated mean left atrial pressure using pulsed and tissue Doppler of the mitral annulus was significantly increased at least at 24-25 mmHg. Pulsed and continuous wave Doppler of her pulmonary trunk showed a normal peak systolic velocity against RV outflow tract obstruction. Her pulmonary artery acceleration time was normal against an elevated pulmonary vascular resistance. Guided continuous wave Doppler of her tricuspid valve allowed our estimation of her right ventricular systolic pressure (moderately severely increased). Her inferior vena cava was of normal size with absent respiratory collapse consistent with an elevated central venous pressure of at least 15 mmHg. CONCLUSIONS: Mild concentric left ventricle hypertrophy with hyperkinetic wall motion. Mildly dilated left atrium with Doppler evidence of an impairment of LV diastolic function and significantly elevated mean left atrial pressure. Right ventricle hypertrophy with hyperkinetic wall motion and Doppler evidence of moderately severe pulmonary hypertension. Normal right atrial and IVC size, but absent respiratory collapse of the IVC in keeping with an elevated central venous pressure/right heart failure. Aortic valvular sclerosis without stenosis and very mild insufficiency. Mild mitral annular calcification with very mild insufficiency.
[2016-09-09] MEDS: PANTOPRAZOLE 40MG INJ (PROTONIX) (C9113) IV SCH (20:38)
[2016-09-09] MEDS: LORATADINE 10 MG TAB PO SCH (20:39)
[2016-09-09] MEDS: traMADol 50 MG TAB PO SCH (20:40)
[2016-09-10] MEDS: KCL 10MEQ IN D5/0.45NS 1000ML 1,000 ML IV SCH ×2 (01:27→09:03)
[2016-09-10] MEDS: NORCO, ANEXSIA 5/325MG TABLET (HYDROcodone/ACETAMINOPHEN) PO PRN (04:09)
[2016-09-10] MEDS: LEVOTHYROXINE 0.088 MG TAB (88 MCG) PO SCH (05:29)
[2016-09-10 06:00] VITALS: BP 131/58
[2016-09-10 07:09] LABS: MEAN CORPUSCULAR HEMOGLOBIN 23.6 pg (27.0-33.0); MEAN CORPUSCULAR HGB CONC 29.7 g/dl (32.0-36.5); MEAN CORPUSCULAR VOLUME 79.7 fl (80.0-96.0); RED CELL DISTRIBUTION WIDTH 18.6 % (11.5-14.5); WHITE BLOOD COUNT 9.3 K/mm3 (4.0-10.0)
[2016-09-10 07:27] LABS: ANION GAP 6 MEQ/L (8-16); BLOOD UREA NITROGEN 5 MG/DL (7-18); CALCIUM LEVEL 6.7 MG/DL (8.8-10.2); CARBON DIOXIDE LEVEL 30 MEQ/L (21-32); CHLORIDE LEVEL 103 MEQ/L (98-107); CREATININE FOR GFR 0.74 MG/DL (0.55-1.02); GLOMERULAR FILTRATION RATE > 60.0 (>32); GLUCOSE, FASTING 147 MG/DL (83-110); MAGNESIUM LEVEL 1.3 MG/DL (1.8-2.4); POTASSIUM SERUM 3.8 MEQ/L (3.5-5.1); SODIUM LEVEL 139 MEQ/L (136-145)
[2016-09-10] MEDS: HumaLOG INSULIN (NovoLOG) PER UNIT SC SCH ×4 (07:30→20:36)
[2016-09-10] MEDS: ALBUTEROL SULFATE 2.5 MG/0.5 ML INH NEB SOLN NEB SCH ×2 (08:05→20:20)
[2016-09-10] MEDS: POLYVINYL ALCOHOL OPHTH SOLN 15 ML(LIQUITEARS) OU SCH ×2 (09:00→20:07)
[2016-09-10] MEDS: FUROSEMIDE 40 MG TAB PO SCH (09:00)
[2016-09-10] MEDS: MAGNESIUM OXIDE 400 MG TAB (MAG-OX) PO SCH ×3 (09:01→20:05)
[2016-09-10] MEDS: CYANOCOBALAMIN 500 MCG TAB PO SCH (09:01)
[2016-09-10] MEDS: ACETAMINOPHEN TAB 650MG DOSE (2X325MG) PO SCH ×3 (09:01→20:06)
[2016-09-10] MEDS: SPIRONOLACTONE 25 MG TAB PO SCH (09:02)
[2016-09-10] MEDS: PREGABALIN 100 MG CAP (LYRICA) PO SCH ×2 (09:02→15:58)
[2016-09-10] MEDS: METOPROLOL TART 50 MG TAB PO SCH ×2 (09:02→20:05)
[2016-09-10] MEDS: MAG SULF 1GM/100ML (MAG RUN) 1 GM in APPROPRIATE DILUENT 1 EA IV SCH ×2 (09:03→10:58)
--- NOTE | 2016-09-10 12:55 | IPN ---
DATE OF VISIT: 09/10/2016 SUBJECTIVE: Patient is seen and examined in the room today. Patient was noted to have an episode of confusion earlier in the morning and it resolved spontaneously. Denies any fatigue. Denies any lightheadedness. Denied any chest pain or shortness of breath. No overnight events are reported. OBJECTIVE: VITAL SIGNS: Temperature is 97.1. Pulse is 79. Respiration 15. Blood pressure 131/58. Pulse oximetry is 93% with 1 liter nasal cannula. GENERAL: No sign of acute distress. Alert and oriented times three. HEENT: Normocephalic, atraumatic. Extraocular motors grossly intact. CARDIOVASCULAR: Positive S1, S2, regular rate. LUNGS: Clear to auscultation bilaterally. ABDOMEN: Still some tenderness to palpation, otherwise soft. EXTREMITIES: No edema and no cyanosis. LABORATORY DATA: WBC 9.3, hemoglobin 8, hematocrit is 26.8, platelet count is 283. Sodium is 139, potassium 3.8, chloride is 103, carbon dioxide 30, BUN 5, creatinine 0.74, GFR greater than 60, fasting glucose is 147, calcium is 6.7, magnesium is 1.3. ASSESSMENT AND PLAN: 1. Adenocarcinoma of the colon. Patient had surgical removal of the mass by general surgeon, Dr. Patton, on 09/08/2016. Awaiting for the pathology report. Dr. Karen Ha is consulted. I discussed with his general surgeon the patient IV fluid and Perez catheter will be removed and patient will advance to the oral diet. 2. Symptomatic anemia secondary to adenocarcinoma of the colon. Patient had 3-pack red blood cell transfusion on 08/28/2016 and 08/29/2016. Hemoglobin and hematocrit remain relative stable. However, for the past few days patient's shows some decrease of hemoglobin and hematocrit. It could be due to hemodilution for the fluid or patient may have continued blood loss. If patient's hemoglobin and hematocrit continue to drop, we may consider another packed red blood cell transfusion. 3. Hypertension. Patient has been hypotensive. Therefore, the Coreg has been on hold, patient's metoprolol currently. Patient's blood pressure is in the satisfactory range at this moment. 4. Type 2 diabetes. On sliding scale. Will defer diet order to his surgical team. 5. History of spinal stenosis, stable. 6. Hypothyroidism, on Synthroid. 7. Chronic neuropathy, on Lyrica. 8. Deep venous thrombosis (DVT) prophylaxis. Per surgical team. Patient on compression device and thromboembolic deterrent (SILVIA) sequential.
[2016-09-10 14:00] VITALS: BP 167/69
[2016-09-10] MEDS: RIVAROXABAN 20 MG TAB (XARELTO) PO SCH (17:35)
[2016-09-10] MEDS: LORATADINE 10 MG TAB PO SCH (20:05)
[2016-09-10] MEDS: PANTOPRAZOLE 40MG INJ (PROTONIX) (C9113) IV SCH (20:05)
[2016-09-10 20:17] VITALS: O2SAT 98
[2016-09-10 22:00] VITALS: BP 117/53
[2016-09-10] MEDS: ALBUTEROL SULFATE 2.5 MG/0.5 ML INH NEB SOLN NEB PRN (23:05)
[2016-09-11] MEDS: LEVOTHYROXINE 0.088 MG TAB (88 MCG) PO SCH (05:44)
[2016-09-11 06:00] VITALS: BP 144/65
[2016-09-11 07:06] LABS: MEAN CORPUSCULAR HEMOGLOBIN 23.8 pg (27.0-33.0); MEAN CORPUSCULAR HGB CONC 29.9 g/dl (32.0-36.5); MEAN CORPUSCULAR VOLUME 79.7 fl (80.0-96.0); RED CELL DISTRIBUTION WIDTH 18.6 % (11.5-14.5)
[2016-09-11 07:12] LABS: ANION GAP 7 MEQ/L (8-16); BLOOD UREA NITROGEN 7 MG/DL (7-18); CALCIUM LEVEL 7.1 MG/DL (8.8-10.2); CARBON DIOXIDE LEVEL 29 MEQ/L (21-32); CHLORIDE LEVEL 104 MEQ/L (98-107); GLOMERULAR FILTRATION RATE > 60.0 (>32); GLUCOSE, FASTING 135 MG/DL (83-110); MAGNESIUM LEVEL 2.2 MG/DL (1.8-2.4); POTASSIUM SERUM 3.9 MEQ/L (3.5-5.1); SODIUM LEVEL 140 MEQ/L (136-145)
[2016-09-11] MEDS: ALBUTEROL SULFATE 2.5 MG/0.5 ML INH NEB SOLN NEB SCH ×2 (07:20→19:31)
[2016-09-11] MEDS: HumaLOG INSULIN (NovoLOG) PER UNIT SC SCH ×4 (07:30→20:29)
[2016-09-11] MEDS: SPIRONOLACTONE 25 MG TAB PO SCH (08:49)
[2016-09-11] MEDS: FUROSEMIDE 40 MG TAB PO SCH (08:50)
[2016-09-11] MEDS: ACETAMINOPHEN TAB 650MG DOSE (2X325MG) PO SCH ×3 (08:50→20:37)
[2016-09-11] MEDS: CYANOCOBALAMIN 500 MCG TAB PO SCH (08:50)
[2016-09-11] MEDS: MAGNESIUM OXIDE 400 MG TAB (MAG-OX) PO SCH (08:50)
[2016-09-11] MEDS: METOPROLOL TART 50 MG TAB PO SCH ×2 (08:51→20:38)
[2016-09-11] MEDS: POLYVINYL ALCOHOL OPHTH SOLN 15 ML(LIQUITEARS) OU SCH ×2 (08:51→20:39)
[2016-09-11] MEDS: ERTAPENEM SODIUM 1 GM in NS MINI-BAG PLUS 50 ML IV SCH (12:53)
[2016-09-11 14:00] VITALS: BP 131/63
--- NOTE | 2016-09-11 14:28 | IPN ---
DATE: 09/11/2016 SUBJECTIVE: The patient is seen and examined in the room today. The patient started having a temperature of 100.5 since yesterday afternoon. The patient feels her lung is a little bit congested. Denies any dysuria. Denies any frequency. Denies any acute pain. The patient still requires oxygen support. OBJECTIVE: VITAL SIGNS: Temperature is 99.5, pulse is 98, respirations 18, blood pressure is 144/65, pulse oximetry is 93% with 1 liter nasal cannula. GENERAL: No signs of acute distress. Alert and oriented times three. HEENT: Normocephalic, atraumatic. Extraocular motors grossly intact. CARDIOVASCULAR: Positive S1, S2. Regular rate. LUNGS: No significant crackles appreciated. No wheezes. Clear to auscultation bilaterally. ABDOMEN: Soft, nondistended. Some tenderness to palpation. Otherwise, soft. Bowel sounds present. EXTREMITIES: No cyanosis. No edema. LABORATORY DATA: WBC 11, hemoglobin 8.2, hematocrit 27.4, platelet count is 285. Sodium is 140, potassium 3.9, chloride 104, carbon dioxide 29, BUN 7, creatinine 0.7, GFR greater than 60, fasting glucose 135, calcium is 7.1, magnesium is 2.2. ASSESSMENT AND PLAN: 1. Adenocarcinoma of the colon. Pathology report came back for moderate differentiated colonic adenocarcinoma. No metastatic carcinoma is noted in ten pericolonic lymph nodes. The patient had surgical removal of the adenocarcinoma by Dr. Patton. Today is postoperative day #3. The patient seems to have stage 1 adenocarcinoma. No chemotherapy is needed at this moment. 2. Fever. Since yesterday at 2:00 p.m. the patient started a temperature of 100.5. There is slight increase WBC. We will check a chest x-ray. We will followup with urinalysis. The patient did have a history of urinary tract infection (UTI) diagnosed on 08/29/2016. The patient had finished a course of antibiotics. 3. History of symptomatic anemia secondary to adenocarcinoma of the colon. The patient had 3 packed red blood cell transfusion on 08/28/2016 and 08/29/2016. Since then, the patient's hemoglobin and hematocrit have remained stable. We will continue to monitor. 4. Hypertension. The patient's blood pressure is in the satisfactory range. The patient is on metoprolol. Coreg has been on hold. 5. Type 2 diabetes. On sliding scale. The patient will be on consistent carbohydrate diet. 6. History of spinal stenosis, stable. 7. Hypothyroidism. On Synthroid. 8. Chronic neuropathy. 9. Deep vein thrombosis (DVT) prophylaxis. The patient has sequential compression device (SCD).
--- NOTE | 2016-09-11 15:03 | REP ---
CHEST X-RAY: Two views. HISTORY: Acute fever. Comparison study 09/08/2016. FINDINGS: Mild cardiomegaly is observed. There is some fissural thickening visible on the lateral film. No navin pleural effusion is seen. Pulmonary vasculature is cephalized and somewhat congested. No acute infiltrate noted. Vascular calcification is seen in the aorta. The patient status post lower cervical spine fusion. IMPRESSION: Cardiomegaly. Vascular congestion and fissural thickening question CHF pattern. No acute infiltrate. Signed by Sreedhar Gilmore MD 09/11/2016 05:39 P
[2016-09-11] MEDS: RIVAROXABAN 20 MG TAB (XARELTO) PO SCH (17:00)
--- NOTE | 2016-09-11 18:20 | CR ---
DATE OF CONSULTATION: 09/10/2016 REFERRING PHYSICIAN: Dr. Keerthi Mendez of hospitalist service. REASON FOR CONSULTATION: Recommendations regarding newly diagnosed colon cancer. Sharita is as 86-year-old woman who presented with anemia, was found on endoscopy to have a colonic mass and has now undergone a right colectomy with a finding of a 2.5-3.5 cm moderately differentiated adenocarcinoma, non muscle invasive pathologic T2, N0 (0/14 nodes) M0, stage I. She is status post surgery one day seated in a chair accompanied by her daughter, Mari Mckinnon. FAMILY HISTORY: Ms. Mckinnon Family history is notable for brother diagnosed at age 45 with kidney cancer, also diagnosed with prostate cancer. He in his 60s of heart disease; a daughter diagnosed with cervical dysplasia multiple times status post multiple loop electrosurgical excision procedure (LEEPs); mother diagnosed with colon cancer in early middle age; multiple brothers with prostate cancer and a sister with some sort of female cancer. She is 1 of 16 children. Several of her siblings have . Sharita lives at [facility]. She is not sure who the current primary care physician (PCP) is, it recently changed. She has a smoking history, stopped 14 years ago. She notes some abdominal discomfort when she coughs but otherwise feels well after surgery. Denies shortness of breath, chest pain, palpitations, leg cramping or swelling. PAST MEDICAL HISTORY: 1. Spinal stenosis. 2. Type 2 diabetes. 3. Hypertension. 4. Chronic pulmonary obstructive disease (COPD). 5. Hypothyroidism. 6. Atrial fibrillation. 7. Neuropathy. 8. Hemorrhoids. PAST SURGICAL HISTORY: 1. Hysterectomy. 2. Back surgery. 3. Right colectomy. ALLERGIES: No known drug allergies. SOCIAL HISTORY: 60 pack-year smoking history stopped 13-14 years ago. Denies alcohol. Lives at [facility]. Active involved daughter and granddaughter. Primary care doctor, possibly Dr. Kapoor. REVIEW OF SYSTEMS: Pertinent positives and negatives noted above. INPATIENT MEDICATIONS: - rivaroxaban 20 mg daily - magnesium oxide 800 mg - acetaminophen/hydrocodone 5/325 two tablets every 6 hours as needed for pain - albuterol nebulizer - insulin lispro nightly - insulin lispro in the morning - ketoconazole - Artificial Tears - acetaminophen - cyanocobalamin - Lasix 60 mg by mouth daily - spironolactone 25 mg by mouth daily - levothyroxine 0.088 mg daily - pantoprazole 40 mg - loratadine 10 mg daily - metoprolol 50 mg daily - pregabalin 100 mg by mouth three times a day - tramadol 50 mg by mouth nightly - bisacodyl 5 mg nightly - docusate 100 mg twice a day as needed - ondansetron 4 mg three times a day as needed PHYSICAL EXAMINATION: Physical exam deferred. VITAL SIGNS: Temperature 100.5, pulse 85, blood pressure 167/64, heart rate 93, respiratory rate 20. CBC: WBC 9.3, hemoglobin 8, hematocrit 26.8, platelets 283. Electrolytes within normal limits. Creatinine 0.74, calcium 6.7, mildly low (albumin 08/28/2016 was 3.4) CEA 09/03/2016 was 7.3, CA-125 was normal. IMPRESSION: Sharita Mckinnon is an 86-year-old woman with a resected right sided T2 N0,M0 pathologic stage I moderately differentiated adenocarcinoma of the colon. Pathology was notable for absence of lymphovascular invasion or extramural tumor deposits, clear margins, and moderately differentiated adenocarcinoma found in the setting of a 3.5 cm adenoma. 10 pericolonic nodes were collected all negative. There was a small tubular adenoma in the ascending colon. 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 Sharita's family history is notable for multiple malignancies including mother with colon cancer, brother with kidney cancer and prostate cancer, a daughter with early noninvasive cervical cancer, a sister with possible gynecologic cancer. She also has a personal history of skin malignancy resected. Right-sided colon cancers are associated with increased rates of microsatellite instability (MSI). It would be worthwhile to test this tumor for MSI/MMR. If positive, further testing with BRAF and KRAS would be indicated to rule out or rule in the possibility of a Cruz syndrome type tumor. That is the presence of microsatellite instability (MSI-H ) in the absence of a BRAF or KRAS mutation is highly likely to be positive for Cruz syndrome. Cruz syndrome carries an nearly 80% lifetime risk of developing colon cancer, up to 40% lifetime risk of uterine cancer and increased frequencies of kidney, skin, and brain malignancies. Therefore it is of great importance for this patient's family to know if this patient has an MSI high tumor. I have already spoken with the pathologist about this and the testing is underway. RECOMMENDATIONS: Pending micro satellite instability testing, the patient can follow up with me as an outpatient once she is fully recovered from her surgery. There is no herrera. There is no role for adjuvant chemotherapy regardless of the MSI results. The MSI result bears only on whether she has at risk for having hereditary nonpolyposis colorectal cancer (HNPCC) or the Cruz syndrome which in turn has implications for her family. I gave her and her daughter a card, wrote our office number on it. They can either call for the appointment or I would encourage before she leaves the hospital a call to be made to Sherlyn Carrero, our nurse navigator, at [phone] to help coordinate setting up an appointment. cc: Keerthi Mendez MD [facility]PITALJohn
[2016-09-11] MEDS ORDERED: FUROSEMIDE 40 MG/4 ML VIAL (J1940) IV ONE (18:45)
[2016-09-11] MEDS: traMADol 50 MG TAB PO SCH (20:38)
[2016-09-11] MEDS: PREGABALIN 100 MG CAP (LYRICA) PO SCH (20:38)
[2016-09-11] MEDS: LORATADINE 10 MG TAB PO SCH (20:39)
[2016-09-11] MEDS: PANTOPRAZOLE 40MG INJ (PROTONIX) (C9113) IV SCH (20:39)
[2016-09-11] MEDS ORDERED: ePHEDrine SULFATE 25 MG/5 ML(5MG/ML) SYRINGE As Ordered ONE (20:55)
[2016-09-11 22:00] VITALS: BP 148/66
[2016-09-12] MEDS: LEVOTHYROXINE 0.088 MG TAB (88 MCG) PO SCH (05:35)
[2016-09-12 06:00] VITALS: BP 140/87
[2016-09-12 06:13] LABS: MEAN CORPUSCULAR HEMOGLOBIN 23.6 pg (27.0-33.0); MEAN CORPUSCULAR HGB CONC 29.4 g/dl (32.0-36.5); MEAN CORPUSCULAR VOLUME 80.5 fl (80.0-96.0); RED CELL DISTRIBUTION WIDTH 18.7 % (11.5-14.5); WHITE BLOOD COUNT 9.5 K/mm3 (4.0-10.0)
[2016-09-12 06:21] LABS: ANION GAP 6 MEQ/L (8-16); BLOOD UREA NITROGEN 9 MG/DL (7-18); CALCIUM LEVEL 7.4 MG/DL (8.8-10.2); CARBON DIOXIDE LEVEL 33 MEQ/L (21-32); CHLORIDE LEVEL 104 MEQ/L (98-107); CREATININE FOR GFR 0.67 MG/DL (0.55-1.02); GLOMERULAR FILTRATION RATE > 60.0 (>32); GLUCOSE, FASTING 115 MG/DL (83-110); MAGNESIUM LEVEL 1.8 MG/DL (1.8-2.4); POTASSIUM SERUM 3.5 MEQ/L (3.5-5.1); SODIUM LEVEL 143 MEQ/L (136-145)
[2016-09-12] MEDS: ALBUTEROL SULFATE 2.5 MG/0.5 ML INH NEB SOLN NEB SCH ×2 (08:16→20:00)
[2016-09-12] MEDS: CYANOCOBALAMIN 500 MCG TAB PO SCH (09:15)
[2016-09-12] MEDS: FUROSEMIDE 100 MG/10 ML VIAL (J1940) IV SCH ×2 (09:15→16:44)
[2016-09-12] MEDS: ACETAMINOPHEN TAB 650MG DOSE (2X325MG) PO SCH ×3 (09:16→21:00)
[2016-09-12] MEDS: HumaLOG INSULIN (NovoLOG) PER UNIT SC SCH ×4 (09:16→21:00)
[2016-09-12] MEDS: SPIRONOLACTONE 25 MG TAB PO SCH (09:16)
[2016-09-12] MEDS: PREGABALIN 100 MG CAP (LYRICA) PO SCH ×3 (09:19→21:02)
[2016-09-12] MEDS: POLYVINYL ALCOHOL OPHTH SOLN 15 ML(LIQUITEARS) OU SCH ×2 (09:19→21:02)
[2016-09-12] MEDS: METOPROLOL TART 50 MG TAB PO SCH ×2 (09:19→21:01)
[2016-09-12] MEDS: ERTAPENEM SODIUM 1 GM in NS MINI-BAG PLUS 50 ML IV SCH (13:10)
[2016-09-12 14:00] VITALS: BP 135/61
--- NOTE | 2016-09-12 15:39 | IPN ---
DATE: 09/12/2016 SUBJECTIVE: The patient is seen and examined in the room today. The patient stated that she is feeling alright. Yesterday afternoon, the patient had a temperature of 100.6 without recurrence. Currently, the patient still requires oxygen support. The patient started to develop some swelling. OBJECTIVE: VITAL SIGNS: Temperature is 98.6, pulse 76, respirations 16, blood pressure 140/87, pulse oximetry is 97% with 2 liters nasal cannula. GENERAL: Pale. No signs of distress. The patient is alert and awake, able to answer questions. HEENT: Normocephalic, atraumatic. Extraocular motors grossly intact. CARDIOVASCULAR: Positive S1, S2. Regular rate. LUNGS: Some mild crackles bilaterally but no wheezes. ABDOMEN: Soft, nontender, nondistended. The abdomen has surgical chris present in the mid abdomen. No erythema. No active discharge. No bleeding. EXTREMITIES: 2+ pitting edema bilaterally. No sign of cyanosis. LABORATORY DATA: WBC 9.5, hemoglobin 7, hematocrit 24, platelet count is 307. Sodium is 143, potassium 3.5, chloride 104, carbon dioxide 33, BUN 9, creatinine 0.67, GFR greater than 60, fasting glucose 115, calcium is 7.4, magnesium is 1.8. C-reactive protein is 7.52. BNP is 450. ASSESSMENT AND PLAN: 1. Adenocarcinoma of the colon. The patient has stage 1 tumor removal by general surgeon, Dr. Patton. Today is postoperative day #4. Dr. Karen Ha, oncologist, has been consulted. We appreciate her assistance. No chemotherapy is needed at this moment. 2. History of symptomatic anemia secondary to adenocarcinoma of the colon. The patient had 3 packed red blood cell transfusion at the beginning of admission, which was around 08/28/2016 and 08/29/2016. Since then, the patient's hemoglobin and hematocrit have been stable. Over the past 24 hours, the patient had a drop in hemoglobin. However, there is suspicion for hemodilution. The patient has been getting fluid support. We will try to follow with hemoglobin and hematocrit. We will start the patient's diuresis. 3. Fever. The patient has been having intermittent fever for the past 2 days. There is no increase of white count. Chest x-ray was obtained, which showed venous congestion but no infiltrate. Unable to obtain the urine sample due to the patient's incontinence. At this moment, the patient is on ertapenem due to recent history of urinary tract infection (UTI). 4. Hypertension. Currently, blood pressure is in satisfactory range. 5. Type 2 diabetes. On sliding scale and consistent carbohydrate diet. 6. History of spinal stenosis, stable. 7. Hypothyroidism. On Synthroid. 8. Chronic neuropathy. 9. Fluid overload. The patient's laboratories show signs of fluid overload. We will start to increase the patient's Lasix diuresis to change from by mouth to intravenous and we will increase the dose and the frequency. 10. Chronic obstructive pulmonary disease (COPD). On as needed breathing treatments. 11. Deep vein thrombosis (DVT) prophylaxis. On TEDs and sequential compression device (SCD)s.
[2016-09-12] MEDS: NORCO, ANEXSIA 5/325MG TABLET (HYDROcodone/ACETAMINOPHEN) PO PRN (19:51)
[2016-09-12] MEDS: traMADol 50 MG TAB PO SCH (21:00)
[2016-09-12] MEDS: PANTOPRAZOLE 40MG INJ (PROTONIX) (C9113) IV SCH (21:01)
[2016-09-12] MEDS: LORATADINE 10 MG TAB PO SCH (21:02)
[2016-09-12 22:00] VITALS: BP 129/57
[2016-09-13] MEDS: FUROSEMIDE 100 MG/10 ML VIAL (J1940) IV SCH ×3 (01:17→16:20)
[2016-09-13] MEDS ORDERED: FUROSEMIDE 20 MG TAB PO ONE (05:15)
[2016-09-13] MEDS: LEVOTHYROXINE 0.088 MG TAB (88 MCG) PO SCH (05:51)
[2016-09-13 06:00] VITALS: BP 148/65
[2016-09-13] MEDS: NORCO, ANEXSIA 5/325MG TABLET (HYDROcodone/ACETAMINOPHEN) PO PRN (06:37)
[2016-09-13 06:38] LABS: MEAN CORPUSCULAR HEMOGLOBIN 24.7 pg (27.0-33.0); MEAN CORPUSCULAR HGB CONC 30.6 g/dl (32.0-36.5); MEAN CORPUSCULAR VOLUME 80.7 fl (80.0-96.0); RED CELL DISTRIBUTION WIDTH 18.2 % (11.5-14.5); WHITE BLOOD COUNT 9.4 K/mm3 (4.0-10.0)
[2016-09-13 06:50] LABS: ANION GAP 9 MEQ/L (8-16); BLOOD UREA NITROGEN 10 MG/DL (7-18); CALCIUM LEVEL 7.8 MG/DL (8.8-10.2); CARBON DIOXIDE LEVEL 33 MEQ/L (21-32); CHLORIDE LEVEL 100 MEQ/L (98-107); CREATININE FOR GFR 0.77 MG/DL (0.55-1.02); GLOMERULAR FILTRATION RATE > 60.0 (>32); GLUCOSE, FASTING 110 MG/DL (83-110); MAGNESIUM LEVEL 1.2 MG/DL (1.8-2.4); POTASSIUM SERUM 3.2 MEQ/L (3.5-5.1); SODIUM LEVEL 142 MEQ/L (136-145)
[2016-09-13] MEDS: ALBUTEROL SULFATE 2.5 MG/0.5 ML INH NEB SOLN NEB SCH ×2 (08:01→19:21)
[2016-09-13] MEDS: POLYVINYL ALCOHOL OPHTH SOLN 15 ML(LIQUITEARS) OU SCH ×2 (09:25→20:23)
[2016-09-13] MEDS: PREGABALIN 100 MG CAP (LYRICA) PO SCH ×3 (09:26→20:24)
[2016-09-13] MEDS: ACETAMINOPHEN TAB 650MG DOSE (2X325MG) PO SCH ×3 (09:26→20:23)
[2016-09-13] MEDS: CYANOCOBALAMIN 500 MCG TAB PO SCH (09:26)
[2016-09-13] MEDS: SPIRONOLACTONE 25 MG TAB PO SCH (09:27)
[2016-09-13] MEDS: METOPROLOL TART 50 MG TAB PO SCH ×2 (09:27→20:24)
[2016-09-13] MEDS: HumaLOG INSULIN (NovoLOG) PER UNIT SC SCH ×4 (09:27→21:00)
[2016-09-13] MEDS: KETOCONAZOLE 2% CREAM TOP SCH ×2 (09:28→20:26)
[2016-09-13] MEDS: ERTAPENEM SODIUM 1 GM in NS MINI-BAG PLUS 50 ML IV SCH (12:20)
[2016-09-13] MEDS ORDERED: POTASSIUM CHLORIDE 10 MEQ SR TABLET PO ONE (13:00)
[2016-09-13 14:00] VITALS: BP 129/61
[2016-09-13] MEDS: MAGNESIUM OXIDE 400 MG TAB (MAG-OX) PO SCH ×2 (16:20→20:24)
[2016-09-13] MEDS: PANTOPRAZOLE 40MG INJ (PROTONIX) (C9113) IV SCH (20:23)
[2016-09-13] MEDS: LORATADINE 10 MG TAB PO SCH (20:24)
[2016-09-13] MEDS: traMADol 50 MG TAB PO SCH (20:25)
[2016-09-13 22:00] VITALS: BP 126/59
--- NOTE | 2016-09-13 22:43 | IPN ---
DATE: 09/13/2016 SUBJECTIVE: The patient is seen and examined in the room today. The patient shows some signs of memory recall. Otherwise, the patient denies any acute complaint. The patient has been having loose stool with blood clot, but no bright red blood noted in the stool. The patient still requires oxygen support. At baseline, the patient does not require any oxygen. Per nursing staff, it is being very difficult to collect urine from the patient because usually the patient has urinated during the bowel movement; it is being very difficult to asses the patient's output appropriately. OBJECTIVE: VITAL SIGNS: Temperature is 97.9, pulse is 67, respirations 17, blood pressure is 148/65, pulse oximetry is 98% with 2 liters nasal cannula. GENERAL: Slight dementia, no acute distress, alert and oriented times three, able to answer questions and follow commands. HEENT: Normocephalic, atraumatic. Extraocular motor grossly intact. CARDIOVASCULAR: Positive S1, S2, regular rate. LUNGS: Still mild crackle bilateral, but no wheezes. ABDOMEN: Soft, some tenderness with palpation. The patient has surgical staple at present. No erythema. No active bleeding. EXTREMITIES: 1 to 2+ pitting edema bilaterally. No sign of cyanosis. LABORATORY DATA: White blood count (WBC) is 9.4, hemoglobin 8.2, hematocrit 26.9, platelet count is 333. Sodium is 142, potassium is 3.2, chloride is 100, carbon dioxide is 33, BUN 10, creatine is 0.77, glomerular filtration rate (GFR) greater than 60. Fasting glucose is 110, calcium is 7.8, magnesium is 1.2. ASSESSMENT AND PLAN: 1. Adenocarcinoma of the colon. The patient had surgical removal by Dr. Patton. Today is postoperative day #5. Oncologist, Dr. Karen Ha has been consulted. No chemotherapy is needed at this moment. 2. History of symptomatic secondary to adenocarcinoma tumor. Will continue to trend the patient's hemoglobin and hematocrit. The patient had a gastrointestinal (GI) loss and the patient currently has a fluid overload. We have been trending the patient's hemoglobin and hematocrit. Yesterday, near midnight, the patient had acute worsening of the hemoglobin and hematocrit. It dropped down from 7.7 to 6.7. During the evening shift, the patient received two packed red blood cell transfusions. Will continue the patient on the IV Lasix to further diurese the patient. Unfortunately, the patient's urine output has been very difficult to measure. Therefore, will observe the patient clinically for the patient's fluid status. 3. Fever. The patient had acute spike of fever on 09/10 and 09/11. Due to concern of infectious process, the patient was started IV antibiotics. Since then, no recurrence. Unfortunately, it has been very difficult to obtain a urine sample for urinalysis and urine cultures. The patient do have a history of urinary tract infection (UTI) from enterobacter. The patient has been a very poor historian. The patient is not sure whether she has dysuria. She cannot recall clearly whether she has frequency or urgency. 4. Hypokalemia secondary to Lasix diuresis. The patient will receive potassium supplement. 5. Hypomagnesemia. Will start the patient on a schedule of potassium supplement. 6. Hypertension. Currently, blood pressure is satisfactory range. 7. Type 2 diabetes. On sliding scale, consistent carbohydrate diet. 8. History of spinal stenosis, stable. 9. Hypothyroidism on Synthroid. 10. Fluid overload. Currently, the patient has undergone IV Lasix diuresis. 11. Chronic obstructive pulmonary disease (COPD). The patient had breathing treatment as needed. 12. Deep vein thrombosis (DVT) prophylaxis. The patient had TEDs and sequential compression device.
[2016-09-14] MEDS: FUROSEMIDE 100 MG/10 ML VIAL (J1940) IV SCH ×2 (01:53→08:29)
[2016-09-14] MEDS: LEVOTHYROXINE 0.088 MG TAB (88 MCG) PO SCH (05:32)
[2016-09-14 06:00] VITALS: BP 142/70
[2016-09-14 06:31] LABS: ANION GAP 8 MEQ/L (8-16); BLOOD UREA NITROGEN 9 MG/DL (7-18); CALCIUM LEVEL 8.4 MG/DL (8.8-10.2); CARBON DIOXIDE LEVEL 36 MEQ/L (21-32); CHLORIDE LEVEL 97 MEQ/L (98-107); CREATININE FOR GFR 0.74 MG/DL (0.55-1.02); GLOMERULAR FILTRATION RATE > 60.0 (>32); GLUCOSE, FASTING 117 MG/DL (83-110); MAGNESIUM LEVEL 1.3 MG/DL (1.8-2.4); POTASSIUM SERUM 3.2 MEQ/L (3.5-5.1); SODIUM LEVEL 141 MEQ/L (136-145)
[2016-09-14 06:32] LABS: MEAN CORPUSCULAR HEMOGLOBIN 25.8 pg (27.0-33.0); MEAN CORPUSCULAR HGB CONC 31.7 g/dl (32.0-36.5); MEAN CORPUSCULAR VOLUME 81.4 fl (80.0-96.0); RED CELL DISTRIBUTION WIDTH 17.9 % (11.5-14.5)
[2016-09-14] MEDS: ALBUTEROL SULFATE 2.5 MG/0.5 ML INH NEB SOLN NEB SCH ×2 (07:46→20:02)
[2016-09-14] MEDS: ACETAMINOPHEN TAB 650MG DOSE (2X325MG) PO SCH ×3 (08:27→22:40)
[2016-09-14] MEDS: MAGNESIUM OXIDE 400 MG TAB (MAG-OX) PO SCH ×3 (08:27→22:40)
[2016-09-14] MEDS: METOPROLOL TART 50 MG TAB PO SCH ×2 (08:28→22:42)
[2016-09-14] MEDS: SPIRONOLACTONE 25 MG TAB PO SCH (08:28)
[2016-09-14] MEDS: PREGABALIN 100 MG CAP (LYRICA) PO SCH ×3 (08:28→22:41)
[2016-09-14] MEDS: CYANOCOBALAMIN 500 MCG TAB PO SCH (08:28)
[2016-09-14] MEDS: HumaLOG INSULIN (NovoLOG) PER UNIT SC SCH ×4 (08:29→20:59)
[2016-09-14] MEDS: POLYVINYL ALCOHOL OPHTH SOLN 15 ML(LIQUITEARS) OU SCH ×2 (08:29→22:39)
[2016-09-14] MEDS: KETOCONAZOLE 2% CREAM TOP SCH ×2 (08:30→22:40)
--- NOTE | 2016-09-14 11:50 | IPN ---
DATE: 09/14/2016 SUBJECTIVE: The patient is seen and examined in the room today. The patient continued to require oxygen support. When the oxygen was taken out, the patient started complaining about difficulty breathing. However, had a bowel movement yesterday and it is green in color. No blood or blood clot noted in the stool. No overnight events were reported. OBJECTIVE: VITAL SIGNS: Temperature 98.2, pulse is 80, respirations 19, blood pressure is 142/70, pulse oximetry is 95% on 2 liters nasal cannula. GENERAL: No sign of acute distress, alert and oriented times three. HEENT: Normocephalic, atraumatic. Extraocular motor intact grossly intact. CARDIOVASCULAR: Positive S1, S2, regular rate. LUNGS: There is some mild crackle bilaterally, but no wheezes. ABDOMEN: There is mild tenderness to palpation. There are surgical chris. No active bleeding. No discharge noted. EXTREMITIES: There is bilateral pitting edema. No sign of cyanosis. LABORATORY DATA: White blood count (WBC) 11, hemoglobin is 9.8, hematocrit is 30.8, platelet count is 368. Sodium is 141, potassium is 3.2, chloride 97, carbon dioxide 36, BUN is 9, creatine is 0.74, glomerular filtration rate (GFR) is greater than 60, fasting glucose 117, calcium is 8.4, magnesium 1.3. ASSESSMENT AND PLAN: 1. Adenocarcinoma of the colon, surgically removed by general surgeon, Dr. Patton. Today is postoperative day #6. The patient does not have any lymph node involvement. No chemotherapy is needed. 2. History of symptomatic anemia secondary to adenocarcinoma. The patient's hemoglobin and hematocrit are being followed. The patient currently has stable hemoglobin and hematocrit. No blood noted on the stool. 3. Fever. There was acute episode of fever on the 09/10 and 09/11; due to concern for infection, the patient was started on IV antibiotic. Unfortunately, we were not able to obtain the urine for urinalysis and urine culture due to the patient's frequent incontinence. The patient has been on ertapenem. 4. Hypokalemia secondary to Lasix diuresis, supplement potassium. 5. Hypomagnesemia. The patient is started on oral magnesium supplement. Today, will give the patient IV magnesium today. 6. Hypertension. Blood pressure in satisfactory range. 7. Type 2 diabetes on sliding scale. Continue consistent coverage. 8. History of spinal stenosis. 9. Hypothyroidism on Synthroid. 10. Fluid overload. The patient is on Lasix diuresis. 11. Chronic obstructive pulmonary disease (COPD). Breathing treatment as needed. 12. Deep vein thrombosis (DVT) prophylaxis, on TEDs, sequential and compression device.
[2016-09-14] MEDS ORDERED: POTASSIUM CHLORIDE 10 MEQ SR TABLET PO ONE (12:00)
[2016-09-14] MEDS ORDERED: MAG SULF 1GM/100ML (MAG RUN) 1 GM in APPROPRIATE DILUENT 1 EA IV ONE (12:00)
[2016-09-14] MEDS: ERTAPENEM SODIUM 1 GM in NS MINI-BAG PLUS 50 ML IV SCH (12:10)
--- NOTE | 2016-09-14 12:39 | REP ---
Chest x-ray: Two views. History: Difficulty breathing. Findings: Comparison radiograph September 11, 2016. Cardiomegaly is again observed. There is plate-like atelectasis in the right base. No pleural effusion is seen. Some fissural thickening is noted on the lateral view however. No new infiltrate seen. Impression: Plate-like atelectasis right base. Cardiomegaly and fissural thickening. No new infiltrate seen. Signed by Sreedhar Gilmore MD 09/14/2016 01:14 P
[2016-09-14 14:00] VITALS: BP 156/69
[2016-09-14] MEDS: FUROSEMIDE 20 MG TAB PO SCH (16:15)
[2016-09-14] MEDS: RIVAROXABAN 20 MG TAB (XARELTO) PO SCH (17:23)
[2016-09-14 22:00] VITALS: BP 137/62
[2016-09-14] MEDS: PANTOPRAZOLE 40MG INJ (PROTONIX) (C9113) IV SCH (22:40)
[2016-09-14] MEDS: traMADol 50 MG TAB PO SCH (22:41)
[2016-09-14] MEDS: LORATADINE 10 MG TAB PO SCH (22:41)
[2016-09-15 06:00] VITALS: BP 140/63
[2016-09-15 06:07] LABS: MEAN CORPUSCULAR HEMOGLOBIN 25.7 pg (27.0-33.0); MEAN CORPUSCULAR HGB CONC 31.6 g/dl (32.0-36.5); MEAN CORPUSCULAR VOLUME 81.2 fl (80.0-96.0); WHITE BLOOD COUNT 8.6 K/mm3 (4.0-10.0)
[2016-09-15] MEDS: LEVOTHYROXINE 0.088 MG TAB (88 MCG) PO SCH (06:10)
[2016-09-15 06:15] LABS: ANION GAP 8 MEQ/L (8-16); BLOOD UREA NITROGEN 10 MG/DL (7-18); CALCIUM LEVEL 8.2 MG/DL (8.8-10.2); CARBON DIOXIDE LEVEL 36 MEQ/L (21-32); CHLORIDE LEVEL 97 MEQ/L (98-107); CREATININE FOR GFR 0.73 MG/DL (0.55-1.02); GLOMERULAR FILTRATION RATE > 60.0 (>32); GLUCOSE, FASTING 116 MG/DL (83-110); MAGNESIUM LEVEL 1.8 MG/DL (1.8-2.4); POTASSIUM SERUM 3.8 MEQ/L (3.5-5.1); SODIUM LEVEL 141 MEQ/L (136-145)
[2016-09-15] MEDS: ALBUTEROL SULFATE 2.5 MG/0.5 ML INH NEB SOLN NEB SCH ×2 (07:14→19:22)
[2016-09-15] MEDS: FUROSEMIDE 20 MG TAB PO SCH (08:01)
[2016-09-15] MEDS: PREGABALIN 100 MG CAP (LYRICA) PO SCH ×3 (08:01→21:54)
[2016-09-15] MEDS: METOPROLOL TART 50 MG TAB PO SCH ×2 (08:01→21:55)
[2016-09-15] MEDS: CYANOCOBALAMIN 500 MCG TAB PO SCH (08:02)
[2016-09-15] MEDS: SPIRONOLACTONE 25 MG TAB PO SCH (08:02)
[2016-09-15] MEDS: MAGNESIUM OXIDE 400 MG TAB (MAG-OX) PO SCH ×3 (08:02→21:54)
[2016-09-15] MEDS: HumaLOG INSULIN (NovoLOG) PER UNIT SC SCH ×4 (08:03→21:54)
[2016-09-15] MEDS: POLYVINYL ALCOHOL OPHTH SOLN 15 ML(LIQUITEARS) OU SCH ×2 (08:03→21:54)
[2016-09-15] MEDS: ACETAMINOPHEN TAB 650MG DOSE (2X325MG) PO SCH ×3 (08:07→21:54)
[2016-09-15 14:00] VITALS: BP 138/50
--- NOTE | 2016-09-15 16:02 | IPN ---
DATE: 09/15/2016 SUBJECTIVE: Patient is seen and examined in the room today. Patient seems more fatigued than yesterday. When asked patient how often she is using incentive spirometry, patient stated she rarely uses it. We explained to the patient that she has atelectasis and spirometry will improve her breathing status, however patient may not fully understand the importance. No bleeding noted. No overnight events are reported. Patient continues to require oxygen support. OBJECTIVE: VITAL SIGNS: Temperature 97.9, pulse 68, respirations 18, blood pressure 140/63, pulse oximetry 92% with 1 liter nasal cannula. GENERAL: Patient is alert and awake, able to answer questions. HEENT: Normocephalic, atraumatic. Extraocular motors grossly intact. CARDIOVASCULAR: Irregularly irregular, positive S1, S2. LUNGS: Very diminished lung sounds but no crackles or wheezes appreciated. ABDOMEN: Abdomen is soft, bowel sounds present. EXTREMITIES: Trace pitting edema bilaterally. No sign of cyanosis. LABORATORY DATA: WBC 8.6, hemoglobin 9.4, hematocrit 29.9, platelet count 403. Sodium 141, potassium 3.8, chloride 97, carbon dioxide 33, BUN 10, creatinine 0.73, GFR greater than 60, fasting glucose 116, calcium 8.2, magnesium 1.8. ASSESSMENT AND PLAN: 1. Adenocarcinoma of colon, surgically removed by general surgeon Dr. Patton, today is postoperative day #7. No lymph node involvement. Per Dr. Ha, no chemotherapy is needed. No bleeding noted. Hemoglobin and hematocrit remain stable. 2. History of symptomatic anemia secondary to adenocarcinoma. Patient's hemoglobin and hematocrit has been closely monitored. On 09/12/2016, patient had another episode of low hemoglobin and hematocrit and there was some blood clot noted in the stool. Therefore, patient required two packs of red blood cells transfusion. Since then, patient's stool has returned to brownish color. No more blood clots noted. Patient has been on Xarelto, which was restarted since 09/10/2016. 3. Hypokalemia, secondary to Lasix diuresis, resolved. 4. Hypomagnesemia. Patient has been taking potassium supplement. Currently magnesium level is within normal range. 5. Type 2 diabetes, on sliding scale and on consistent carbohydrate diet. 6. History of spinal stenosis. 7. Hypothyroidism, on Synthroid. 8. Fluid overload. Patient has been taking increased dose of Lasix diuresis. Today patient's Lasix dose has been adjusted. Previously IV was switched to oral. Will continue to monitor patient's fluid status and patient's Lasix will be adjusted accordingly. 9. Chronic obstructive pulmonary disease (COPD). Does not have any active exacerbation. 10. Deep venous thrombosis (DVT) prophylaxis. Patient is on Xarelto. Patient is also on thromboembolism deterrents (TEDs) and sequential compression device. DISPOSITION: Per surgery team, Dr. Patton stated that patient has been stable from surgery standpoint. Currently, only the medical medication is being adjusted, it is almost to her base medications. Currently, patient still requires increased oxygen requirement due to atelectasis. Encouraging patient using incentive spirometry. Currently, sr. social media & mobile manager and family member also continue to work to secure fci assignment. Once the patient has fci placement, patient may be stable for discharge.
[2016-09-15] MEDS: RIVAROXABAN 20 MG TAB (XARELTO) PO SCH (17:11)
[2016-09-15] MEDS: LORATADINE 10 MG TAB PO SCH (21:53)
[2016-09-15] MEDS: PANTOPRAZOLE 40MG INJ (PROTONIX) (C9113) IV SCH (21:54)
[2016-09-15 22:00] VITALS: BP 135/60
[2016-09-16] MEDS: LEVOTHYROXINE 0.088 MG TAB (88 MCG) PO SCH (05:30)
[2016-09-16 06:00] VITALS: BP 136/58
[2016-09-16 06:04] LABS: MEAN CORPUSCULAR HEMOGLOBIN 25.5 pg (27.0-33.0); MEAN CORPUSCULAR HGB CONC 30.8 g/dl (32.0-36.5); MEAN CORPUSCULAR VOLUME 82.6 fl (80.0-96.0); RED CELL DISTRIBUTION WIDTH 18.2 % (11.5-14.5); WHITE BLOOD COUNT 9.6 K/mm3 (4.0-10.0)
[2016-09-16 06:06] LABS: ANION GAP 6 MEQ/L (8-16); BLOOD UREA NITROGEN 12 MG/DL (7-18); CALCIUM LEVEL 8.6 MG/DL (8.8-10.2); CARBON DIOXIDE LEVEL 36 MEQ/L (21-32); CHLORIDE LEVEL 97 MEQ/L (98-107); CREATININE FOR GFR 0.81 MG/DL (0.55-1.02); GLOMERULAR FILTRATION RATE > 60.0 (>32); GLUCOSE, FASTING 139 MG/DL (83-110); POTASSIUM SERUM 3.9 MEQ/L (3.5-5.1); SODIUM LEVEL 139 MEQ/L (136-145)
[2016-09-16] MEDS: ALBUTEROL SULFATE 2.5 MG/0.5 ML INH NEB SOLN NEB SCH ×2 (08:57→20:00)
[2016-09-16] MEDS ORDERED: FUROSEMIDE 20 MG TAB PO SCH (09:00)
[2016-09-16] MEDS: HumaLOG INSULIN (NovoLOG) PER UNIT SC SCH ×4 (09:04→21:00)
[2016-09-16] MEDS: CYANOCOBALAMIN 500 MCG TAB PO SCH (09:05)
[2016-09-16] MEDS: PREGABALIN 100 MG CAP (LYRICA) PO SCH (09:05)
[2016-09-16] MEDS: MAGNESIUM OXIDE 400 MG TAB (MAG-OX) PO SCH ×3 (09:05→21:47)
[2016-09-16] MEDS: METOPROLOL TART 50 MG TAB PO SCH ×2 (09:05→21:47)
[2016-09-16] MEDS: ACETAMINOPHEN TAB 650MG DOSE (2X325MG) PO SCH ×3 (09:06→21:47)
[2016-09-16] MEDS: POLYVINYL ALCOHOL OPHTH SOLN 15 ML(LIQUITEARS) OU SCH ×2 (09:06→21:46)
[2016-09-16] MEDS: SPIRONOLACTONE 25 MG TAB PO SCH (09:06)
[2016-09-16 11:06] VITALS: BP 104/58
[2016-09-16 12:18] LABS: ABG BASE EXCESS 11.2 (-2.0-2.0); ABG HCO3 36.4 MEQ/L (22.0-26.0); ABG PARTIAL PRESSURE CO2 51.7 mmHg (35.0-45.0); ABG STANDARD HCO3 34.9 MEQ/L (22.0-26.0); ABG pH (ARTERIAL) 7.466 UNITS (7.350-7.450)
[2016-09-16 15:00] VITALS: BP 130/62
--- NOTE | 2016-09-16 15:09 | IPN ---
DATE: 09/16/2016 Patient is seen and examined at the bedside. Chart has been reviewed. Patient was watching television and eating her breakfast this morning. No new complaints or issues per nursing, aside from some confusion and tramadol has been discontinued. Afebrile overnight. No complaints of bright red blood per rectum, melena, shortness of breath, chest pain, pressure or tightness. PHYSICAL EXAMINATION: VITAL SIGNS: Temperature 98, pulse 88, respiratory rate 20, blood pressure 136/58, 93% on one liter nasal cannula. GENERAL: Patient is answering questions appropriately. She is awake and alert to herself. HEENT: Normocephalic, atraumatic. Extraocular muscles intact. HEART: S1, S2, irregularly irregular. LUNGS: Diminished breath sounds. No wheezing or crackles. No rales noted. ABDOMEN: Soft, nontender, nondistended. Positive bowel sounds. EXTREMITIES: Trace pitting edema. No cyanosis or clubbing. Laboratory data, microbiology, and imaging studies have been reviewed. ASSESSMENT AND PLAN: 1. Colon adenocarcinoma, status post surgical resection, postoperative day number seven. No lymph node involvement. Per Dr. Karen Ha, no chemotherapy needed. No repeat bleeding. Hemoglobin and hematocrit remain stable. 2. Acute encephalopathy, most likely medication induced. We have discontinued patient's tramadol and Lyrica. Check arterial blood gas, ammonia level. Rule out CO2 narcosis. 3. Symptomatic anemia, secondary to colon adenocarcinoma. Hemoglobin and hematocrit has been stable. No need for repeat blood transfusion. Patient is back on Xarelto started on 09/10/2016. No active signs of bleeding. 4. Electrolyte abnormality is resolved. 5. Type 2 diabetes. Patient's glucose this morning is normal. No signs of hypoglycemia. 6. History of spinal stenosis, chronic. 7. Hypothyroidism, on Synthroid. 8. Fluid overload. Patient's Lasix has been held today due to systolic pressure less than 110. 9. Atrial fibrillation. Rate controlled on metoprolol with holding parameters for blood pressure and heart rate. 10. Chronic obstructive pulmonary disease (COPD). No active exacerbation. DISPOSITION: Patient was going to be discharged today to [facility]. However, she has developed acute confusion, awaiting workup with blood gas as well as ammonia level. [facility]
[2016-09-16] MEDS: RIVAROXABAN 20 MG TAB (XARELTO) PO SCH (16:59)
[2016-09-16] MEDS: PANTOPRAZOLE 40MG INJ (PROTONIX) (C9113) IV SCH (21:46)
[2016-09-16] MEDS: LORATADINE 10 MG TAB PO SCH (21:46)
[2016-09-16 22:00] VITALS: BP 145/66
[2016-09-17] MEDS: LEVOTHYROXINE 0.088 MG TAB (88 MCG) PO SCH (05:50)
[2016-09-17 06:00] VITALS: BP 132/61
[2016-09-17 07:05] LABS: MEAN CORPUSCULAR HEMOGLOBIN 25.6 pg (27.0-33.0); MEAN CORPUSCULAR HGB CONC 30.8 g/dl (32.0-36.5); MEAN CORPUSCULAR VOLUME 83.2 fl (80.0-96.0); RED CELL DISTRIBUTION WIDTH 18.3 % (11.5-14.5); WHITE BLOOD COUNT 9.7 K/mm3 (4.0-10.0)
[2016-09-17 07:13] LABS: ANION GAP 5 MEQ/L (8-16); BLOOD UREA NITROGEN 12 MG/DL (7-18); CALCIUM LEVEL 8.7 MG/DL (8.8-10.2); CARBON DIOXIDE LEVEL 34 MEQ/L (21-32); CHLORIDE LEVEL 99 MEQ/L (98-107); CREATININE FOR GFR 0.82 MG/DL (0.55-1.02); GLOMERULAR FILTRATION RATE > 60.0 (>32); GLUCOSE, FASTING 144 MG/DL (83-110); POTASSIUM SERUM 3.5 MEQ/L (3.5-5.1); SODIUM LEVEL 138 MEQ/L (136-145)
[2016-09-17] MEDS: ALBUTEROL SULFATE 2.5 MG/0.5 ML INH NEB SOLN NEB SCH (08:24)
[2016-09-17] MEDS: SPIRONOLACTONE 25 MG TAB PO SCH (08:33)
[2016-09-17] MEDS: HumaLOG INSULIN (NovoLOG) PER UNIT SC SCH ×2 (08:33→12:32)
[2016-09-17 08:34] VITALS: BP 132/61
[2016-09-17] MEDS: POLYVINYL ALCOHOL OPHTH SOLN 15 ML(LIQUITEARS) OU SCH (08:34)
[2016-09-17] MEDS: CYANOCOBALAMIN 500 MCG TAB PO SCH (08:34)
[2016-09-17] MEDS: METOPROLOL TART 50 MG TAB PO SCH (08:34)
[2016-09-17] MEDS: MAGNESIUM OXIDE 400 MG TAB (MAG-OX) PO SCH (08:34)
[2016-09-17] MEDS: ACETAMINOPHEN TAB 650MG DOSE (2X325MG) PO SCH (08:34)
[2016-09-17] MEDS ORDERED: IPRATROPIUM 0.5MG/ALBUTEROL 2.5MG INH SOL UD 3ML (DUONEB)(J7620) NEB ONE (09:00)
[2016-09-17] MEDS ORDERED: FUROSEMIDE 20 MG TAB PO SCH (09:00)
--- NOTE | 2016-09-17 10:05 | REP ---
PORTABLE CHEST: AP portable view of the chest is performed and compared to a prior study of 09/08/2016, 09/14/2016. There are stable bibasilar fibroatelectatic changes. No new infiltrate is seen. There is mild cardiomegaly. There is calcification of the thoracic aorta. The mediastinal silhouette is unchanged. IMPRESSION: Stable chronic findings without evidence of acute infiltrate. Mild cardiomegaly. Signed by Guanaco Montejo MD 09/17/2016 12:42 P
[2016-09-17] MEDS ORDERED: XARE20TA PO (11:14)
--- NOTE | 2016-09-17 15:55 | DSES ---
DATE OF ADMISSION: 08/28/2016 DATE OF DISCHARGE: 09/17/[address] Kapoor's office, it has been confirmed that the patient does have a prior history of paroxysmal atrial fibrillation; therefore, Xarelto 20 mg every evening will be resumed at discharge. History of paroxysmal atrial fibrillation and risk of cerebrovascular accident (CVA).
--- NOTE | 2016-09-17 16:27 | DSES ---
DATE OF ADMISSION: 08/28/2016 DATE OF DISCHARGE: 09/17/2016 Patient is discharged to [facility]. CONSULTANTS DURING THIS ADMISSION: 1. Dr. Guanaco Patton, general surgeon. 2. Dr. Tree Estrada, assistant spa manager. PRIMARY DISCHARGE DIAGNOSES: 1. Adenocarcinoma of the colon status post laparoscopic right hemicolectomy on 09/08/2016, colonoscopy on 09/03/2016 and esophagogastroduodenoscopy (EGD) showing right cecal mass. 2. Symptomatic anemia secondary to gastrointestinal (GI) bleed from adenocarcinoma of the colon. 3. Acute metabolic encephalopathy secondary to tramadol and Lyrica. 4. Electrolyte abnormalities, low potassium and low magnesium. 5. Fluid overload secondary to intravenous fluids given for nothing by mouth status. 6. Paroxysmal atrial fibrillation, currently sinus rhythm. 7. History of chronic obstructive pulmonary disease (COPD). No active exacerbation. 8. Colon adenocarcinoma, right cecum. Outpatient followup with Dr. Patton for chris removal. 9. History of spinal stenosis. 10. Type 2 diabetes. 11. Hypothyroidism. 12. Enterobacter urinary tract infection (UTI) present on admission. DISCHARGE MEDICATIONS: - Tylenol 650 mg by mouth three times a day - albuterol sulfate 2.5 twice a day and every six hourly as needed - artificial tears two drops in each eye twice a day - Dulcolax 5 mg daily - vitamin B12 1000 mcg daily - Colace 100 twice a day - Lasix 60 daily - Anusol one dose twice a day as needed - levothyroxine 88 mcg daily - Claritin 10 daily - metformin 1 gram twice a day - metoprolol 50 twice a day - Zofran 4 three times a day - Lyrica 100 three times a day - Refresh one drop as needed - spironolactone 25 daily The patient's Xarelto has been discontinued due to recent surgery for her paroxysmal atrial fibrillation to be confirmed with her outpatient primary care provider, Dr. Steiner. HOSPITAL COURSE: An 86-year-old female with a history of type 2 diabetes, hypertension, chronic obstructive pulmonary disease (COPD), paroxysmal atrial fibrillation on chronic Xarelto, hypothyroidism, spinal stenosis, who presented to the emergency room with complaints of dizziness, symptomatic anemia with black tarry stools, hemoglobin of 5.5. During the hospital stay, patient was transfused a total of five units of red blood cells. Dr. Estrada, assistant spa manager, was consulted. Patient underwent esophagogastroduodenoscopy (EGD) and colonoscopy which showed a right cecal mass, moderate-sized hiatal hernia. Patient was referred to Dr. Patton. CT abdomen and pelvis 6.5 x 4.6 cm cystic mass. Pelvic ultrasound showed unilocular cystic enlargement of right ovary corresponding with ultrasound findings which are nonspecific. No mural node or thickened septation was seen. The patient was medically optimized and underwent laparoscopic right hemicolectomy. Tumor markers CEA and CA-19 were elevated at 7.3 for CEA. Pathology of the colonic biopsy showed moderately to poorly differentiated colonic adenocarcinoma. Patient developed altered mental status with unresponsiveness on tramadol and Lyrica. Both of which were discontinued. Ammonia level was normal. Arterial blood gas was unremarkable. With discontinuation of patient's Lyrica and tramadol, patient's mentation improved. Her pain was controlled on three times a day Tylenol. On admission, on 08/29/2016, patient did have Enterobacter cloacae that was treated with intravenous antibiotics with complete resolution, was resistant to cephazolin. Repeat chest x-ray due to complaints of choking sensation as well as cough was done on discharge 09/17/2016, which shows chronic stable findings with no acute infiltrate. Patient's hemoglobin remained stable after five units of red blood cells to 9.9. Her Xarelto has been discontinued due to recent surgery as well as concerns for recurrent bleed. Primary care provider, Dr. Steiner, to confirm whether patient had true atrial fibrillation. LABORATORY DATA ON DISCHARGE: White count 9.7, hemoglobin 9.9, hematocrit 32, platelet count 414. Sodium 138, potassium 3.5, chloride 99, bicarbonate 34, BUN 12, creatinine 0.82, glucose of 144. IMAGING STUDIES: CT abdomen and pelvis shows right cecal mass, multiple small calcified gallstones, hyperdense sludge noted in dependent portion of the gallbladder, a 6.5 x 4.6 cm right adnexal mass. Chest x-ray on 09/17/2016 shows stable chronic findings. No acute infiltrate. Mild cardiomegaly. MICROBIOLOGY: On 08/28/2016, Enterobacter cloacae urine culture resistant to cephazolin. Hemoccult stool on 08/29/2016 positive. Panel on 09/05/2016 negative. TIME SPENT ON DISCHARGE: 30 minutes.
== END 2016-09-17 12:41 | DRG 329 ==
LOC: EDBD 11:55 → M ED 13:06 → M ED INP 18:26 → M PCU 21:42 → M MSPAV 08-30 10:24 → M ICU 09-08 19:00 → M MSPAV 09-09 16:11
PROVIDERS: ADMIT Internal Medicine; ATTEND General Practice
PROC: 30233N1 Transfusion of Nonautologous Red Blood Cells into Peripheral Vein, Percutaneous Approach (ICD-10-PCS; 2016-08-28)
PROC: 0DJ08ZZ Inspection of Upper Intestinal Tract, Via Natural or Artificial Opening Endoscopic (ICD-10-PCS; 2016-09-03)
PROC: 0DBH8ZX Excision of Cecum, Via Natural or Artificial Opening Endoscopic, Diagnostic (ICD-10-PCS; 2016-09-03)
PROC: 0DBQ8ZX Excision of Anus, Via Natural or Artificial Opening Endoscopic, Diagnostic (ICD-10-PCS; 2016-09-03)
PROC: 0DBK4ZZ Excision of Ascending Colon, Percutaneous Endoscopic Approach (ICD-10-PCS; principal; 2016-09-08 12:30)
PROC: 0UB04ZZ Excision of Right Ovary, Percutaneous Endoscopic Approach (ICD-10-PCS; 2016-09-08 12:30)
DX: C18.0 Malignant neoplasm of cecum (principal); G93.41 Metabolic encephalopathy; K92.2 Gastrointestinal hemorrhage, unspecified; N17.9 Acute kidney failure, unspecified; N39.0 Urinary tract infection, site not specified; D50.0 Iron deficiency anemia secondary to blood loss (chronic); I48.0 Paroxysmal atrial fibrillation; E03.9 Hypothyroidism, unspecified; E11.40 Type 2 diabetes mellitus with diabetic neuropathy, unspecified; J44.9 Chronic obstructive pulmonary disease, unspecified; E83.42 Hypomagnesemia; E87.6 Hypokalemia; Z79.899 Other long term (current) drug therapy; Z79.01 Long term (current) use of anticoagulants; Z87.891 Personal history of nicotine dependence; K64.8 Other hemorrhoids; N83.201 Unspecified ovarian cyst, right side; K57.30 Diverticulosis of large intestine without perforation or abscess without bleeding

== ENCOUNTER → 2016-09-22 | Outpatient (REF) ==
[~2016-09-22] MED LIST changes: +ACET-654 PO; +ARTISOL2 OU; +DOCU100C PO; +FURO40TA2 PO; +KETO2CR TOP; +LYRI100C10 PO; +XARE20TA PO; +ZOFR20TA PO
[2016-09-22 13:56] LABS: MEAN CORPUSCULAR HEMOGLOBIN 25.6 pg (27.0-33.0); MEAN CORPUSCULAR HGB CONC 31.3 g/dl (32.0-36.5); RED CELL DISTRIBUTION WIDTH 18.5 % (11.5-14.5); WHITE BLOOD COUNT 10.1 K/mm3 (4.0-10.0)
[2016-09-22 13:59] LABS: CALCIUM LEVEL 8.4 MG/DL (8.8-10.2); GLOMERULAR FILTRATION RATE 55.7 (>32); POTASSIUM SERUM 3.8 MEQ/L (3.5-5.1)
== END ==
DX: M62.81 Muscle weakness (generalized) (principal)

== ENCOUNTER → 2016-09-29 | Outpatient (REF) | payer MEDICARE ==
[2016-09-29 17:59] LABS: PERCENT SATURATION 18.4 % (13.2-37.4)
[2016-09-30 08:48] LABS: CARCINOEMBRYONIC ANTIGEN 6.7 NG/ML (<2.5)
== END ==
LOC: M LAB REF 16:27
PROVIDERS: ATTEND Internal Medicine Medical Oncology
DX: C18.9 Malignant neoplasm of colon, unspecified (principal)

== ENCOUNTER → 2016-09-30 | Outpatient (REF) ==
[2016-09-30 10:27] LABS: MEAN CORPUSCULAR HEMOGLOBIN 25.9 pg (27.0-33.0); MEAN CORPUSCULAR HGB CONC 31.3 g/dl (32.0-36.5); MEAN CORPUSCULAR VOLUME 82.9 fl (80.0-96.0); RED CELL DISTRIBUTION WIDTH 19.3 % (11.5-14.5); WHITE BLOOD COUNT 10.8 K/mm3 (4.0-10.0)
[2016-09-30 10:37] LABS: CALCIUM LEVEL 8.9 MG/DL (8.8-10.2); CREATININE FOR GFR 0.97 MG/DL (0.55-1.02); GLOMERULAR FILTRATION RATE 57.7 (>32); POTASSIUM SERUM 3.9 MEQ/L (3.5-5.1)
== END ==
DX: I50.9 Heart failure, unspecified (principal)

== ENCOUNTER → 2016-10-07 | Outpatient (REF) ==
[2016-10-07 11:28] LABS: MEAN CORPUSCULAR HGB CONC 31.1 g/dl (32.0-36.5); MEAN CORPUSCULAR VOLUME 83.7 fl (80.0-96.0); RED CELL DISTRIBUTION WIDTH 19.7 % (11.5-14.5)
[2016-10-07 11:53] LABS: CALCIUM LEVEL 8.6 MG/DL (8.8-10.2); CREATININE FOR GFR 0.96 MG/DL (0.55-1.02); GLOMERULAR FILTRATION RATE 58.4 (>32); POTASSIUM SERUM 4.1 MEQ/L (3.5-5.1)
== END ==
DX: I50.9 Heart failure, unspecified (principal)

== ENCOUNTER → 2016-10-14 | Outpatient (REF) ==
[2016-10-14 11:11] LABS: MEAN CORPUSCULAR HEMOGLOBIN 26.2 pg (27.0-33.0); MEAN CORPUSCULAR HGB CONC 30.8 g/dl (32.0-36.5); MEAN CORPUSCULAR VOLUME 84.9 fl (80.0-96.0); RED CELL DISTRIBUTION WIDTH 19.5 % (11.5-14.5); WHITE BLOOD COUNT 8.2 K/mm3 (4.0-10.0)
[2016-10-14 11:24] LABS: CALCIUM LEVEL 8.5 MG/DL (8.8-10.2); CREATININE FOR GFR 0.95 MG/DL (0.55-1.02); GLOMERULAR FILTRATION RATE 59.1 (>32); POTASSIUM SERUM 4.1 MEQ/L (3.5-5.1)
== END ==
DX: I50.9 Heart failure, unspecified (principal)

== ENCOUNTER 2017-02-04 13:25 | Inpatient (IN) | payer MEDICARE, MEDICAID ==
[~2017-02-04] VITALS: Ht 162.6 cm; Wt 79.5 kg
[~2017-02-04 13:25] MED LIST changes: -ACET-654 PO; +ACET1TAB17 PO; -DOCU100C PO; +DOCU100C16 PO; +LEVA1TAB PO; +LEVA1TAB2 PO; -LEVA250T PO; -LEVA500T PO; -LYRI100C10 PO; -METF1000 PO; +METF10004 PO; -METF500T PO; +METF500T13 PO; -METO50TA2 PO; +METO50TA7 PO; +PREG100CA PO
[2017-02-04] MEDS ORDERED: ANUS2.5C2 PR (13:52)
[2017-02-04] MEDS ORDERED: compazine PO (13:52)
[2017-02-04] MEDS ORDERED: MULT1CHW39 PO (13:52)
[2017-02-04] MEDS ORDERED: ASPE10LO EX (13:52)
[2017-02-04] MEDS ORDERED: FERR325T3 PO (13:52)
[2017-02-04] MEDS ORDERED: MILKSUS PO (13:52)
[2017-02-04] MEDS ORDERED: VITA100L PO (13:52)
[2017-02-04] MEDS ORDERED: MORPHINE 2 MG/ML 1ML SYRINGE IV ONE (14:45)
[2017-02-04 15:10] LABS: BASO # 0.1 K/mm3 (0.0-0.2); BASO % 0.7 % (0.0-1.0); EOS # 0.2 K/mm3 (0.0-0.50); EOS % 1.6 % (0.0-3.0); LARGE UNSTAINED CELL # 0.3 K/mm3 (0.0-0.4); LARGE UNSTAINED CELL % 2.3 % (0.0-4.0); LYMPH # 1.8 K/mm3 (1.5-4.5); LYMPH % 14.6 % (24.0-44.0); MEAN CORPUSCULAR HEMOGLOBIN 29.1 pg (27.0-33.0); MEAN CORPUSCULAR HGB CONC 32.8 g/dl (32.0-36.5); MEAN CORPUSCULAR VOLUME 88.6 fl (80.0-96.0); MONO # 0.6 K/mm3 (0.0-0.8); MONO % 5.3 % (0.0-5.0); NEUTROPHILS # 8.1 K/mm3 (1.8-7.7); NEUTROPHILS % 75.4 % (36.0-66.0); PLATELET COUNT, AUTOMATED 250 k/mm3 (150-450); WHITE BLOOD COUNT 10.8 K/mm3 (4.0-10.0)
[2017-02-04 15:17] LABS: INR 1.2
[2017-02-04 15:48] LABS: ALBUMIN 4.2 GM/DL (3.2-5.2); ALBUMIN/GLOBULIN RATIO 0.88 (1.00-1.93); ALKALINE PHOSPHATASE 47 U/L (45-117); ALT/SGPT 18 U/L (12-78); ANION GAP 10 MEQ/L (8-16); AST/SGOT 11 U/L (15-37); BILIRUBIN,DIRECT < 0.1 MG/DL (0.0-0.2); BILIRUBIN,TOTAL 0.2 MG/DL (0.2-1.0); BLOOD UREA NITROGEN 26 MG/DL (7-18); CALCIUM LEVEL 9.5 MG/DL (8.8-10.2); CARBON DIOXIDE LEVEL 30 MEQ/L (21-32); CHLORIDE LEVEL 95 MEQ/L (98-107); CREATININE FOR GFR 0.97 MG/DL (0.55-1.02); GLOMERULAR FILTRATION RATE 57.7 (>32); GLUCOSE, FASTING 143 MG/DL (83-110); POTASSIUM SERUM 3.8 MEQ/L (3.5-5.1); SODIUM LEVEL 135 MEQ/L (136-145)
[2017-02-04] MEDS ORDERED: ONDANSETRON 4MG/2ML VIAL (J2405) IV PRN (16:45)
[2017-02-04] MEDS ORDERED: XARE20TA PO (17:53)
[2017-02-04] MEDS ORDERED: VITMTA PO (17:53)
[2017-02-04] MEDS ORDERED: ASPE16CR EXT (17:53)
[2017-02-04] MEDS ORDERED: PROC5TA PO (17:59)
[2017-02-04 19:00] VITALS: BP 160/72
[2017-02-04] MEDS ORDERED: ACETAMINOPHEN TAB 650MG DOSE (2X325MG) PO PRN (19:00)
[2017-02-04] MEDS ORDERED: PROCHLORPERAZINE 5 MG TAB (S0183) PO PRN (19:30)
[2017-02-04] MEDS ORDERED: GLUCAGON FOR INJ 1 MG VIAL (J1610) SC PRN (19:30)
[2017-02-04] MEDS ORDERED: GLUCOSE 4 GM CHEW TABLET PO PRN (19:30)
[2017-02-04] MEDS ORDERED: DEXTROSE 50% 50 ML SYRINGE IV PRN (19:30)
[2017-02-04] MEDS ORDERED: POLYVINYL ALCOHOL OPHTH SOLN 15 ML(LIQUITEARS) OU PRN (19:30)
[2017-02-04] MEDS ORDERED: ANUSOL HC CREAM 30GM PR PRN (19:30)
--- NOTE | 2017-02-04 20:34 | HPEPDOC ---
General Date of Admission Feb 04, 2017 at 16:38 Attending Physician: ROSA M PATEL MD Chief Complaint The patient is a 86-year-old female admitted with a reason for visit of Back Pain, Rectal Bleeding. Source: Patient History of Present Illness PRIMARY CARE PROVIDER: Possibly Dr. Burk as per H&P from 08/28/16 CHIEF COMPLAINT: Excruciating pain HISTORY OF PRESENT ILLNESS: Please note: patient is not a very accurate historian and she digresses from answering questions directly, and I have to bring her attention back several times to answer the question I had asked. 86-year-old female with a PMH significant for spinal stenosis, colon adenocarcinoma status-post R hemicolectomy, GI bleed from adenocarcinoma of the colon, and paroxysmal atrial fibrillation anticoagulated on xarelto, presents to [facility] emergency department for intractable back pain, and bilateral leg pain, ankle pain, foot pain. States she's had chronic pain for years and she's had a spinal surgery to try and correct that. 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 Patient states that this morning before breakfast she began having terrible pain from the back or legs. Then, she states she had to go to the bathroom, after which she vaguely states she had some blood in the toilet, she called the "girls" and told them that she had to go to the hospital after that. States she had to come here to get some help. States she was unable to pick her up her pants after using the bathroom due to the intractable pain. She keeps stating that it's all neuropathic pain that she is feeling which is excruciating. In addition, she states she's always had blood in the stool for hemorrhoids. After she has bowel movements, she states she sometimes bleeds. States that she's had blood in stool for about 4 years. States she takes Tylenol and other pain medications such as morphine that helps with her pain. States it is all nerve damage and overbearing at times. She also admits to bilateral hand numbness, numbness in her feet as well as numbness/tingling in her legs. She denies bowel/bladder incontinence, weakness, fevers, chills, cough, runny nose, sore throat, chest pain, shortness of breath, abdominal pain, nausea, vomiting, diarrhea, constipation, blurred vision, dizziness, headache, falls. She states that she came to the hospital because she was not able to take care of herself due to severe pain. She states that she can usually do things herself and is independent. When asked, she is unable to qualify her pain other than saying it' s all the nerve pain, and denies radiation. Quantifies as it as an 8-9 out of 10 and is asking for pain medication. I was told by Dr. Rosa M Patel that she was reported to about patient having a blood clot type of bowel movement in the ED. There was no fecal occult blood test done because I was told that patient was having bleeding that was noticeable. PAST MEDICAL HISTORY: Adenocarcinoma of the colon status post laparoscopic right hemicolectomy on , colonoscopy on 09/03/2016, and EGD showing right cecal mass Colon adenocarcinoma, right cecum. H/o Symptomatic anemia secondary to GI bleed from adenocarcinoma of the colon H/O Acute metabolic encephalopathy secondary to tramadol and Lyrica Spinal stenosis Type 2 Diabetes mellitus Hypothyroidism Hypertension Hypothyroidism Paroxysmal Atrial fibrillation Hemorrhoids Neuropathy COPD Pulmonary hypertension Diastolic heart failure Corpulmonale Echocardiogram from 09/09/16: Diastolic Dysfunction with LVEF 65%, mild concentric LVH with hyperkinetic wall motion, mildly dilated L atrium with doppler evidence of an impairment of LV diastolic function and significantly elevated mean L atrial pressure, RVH with hyperkinetic wall motion and doppler evidence of moderately severe pulmonary HTN, absent respiratory collapse of the IVC with an elevated CVP/R Heart Failure PAST SURGICAL HISTORY: Hysterectomy Back surgery Right colectomy MEDICATIONS: Please see below. SOCIAL HISTORY: Lives at [facility]. She is a former smoker who quit 13 years ago, smoked for approximately 60 years prior to quitting. Denies alcohol or recreational drug use. However, states that she used to drink beer once in a while. Has 4 children. Has one son and 3 daughters. One of her children due to a heart problem. 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 FAMILY HISTORY: Brother: diagnosed at age 45 with kidney cancer and diagnosed with prostate cancer, in 60s of heart disease Daughter: diagnosed with cervical dysplasia multiple times status-post multiple loop electrosurgical excision procedure (LEEPs) Mother: diagnosed with colon cancer and in early middle age Multiple brothers: with prostate cancer Sister: some sort of female cancer She is 1 of 16 children. Several siblings have . In addition, patient states her son from a heart problem and had [place] 1 of her brothers had a bowel operation Father: had "sugar" Sister: " of thyroid operation" at 32 yo 1 brother: had neuropathy CODE STATUS: DNR/DNI Has a MOLST Form completed 08/12/14 in documentation from [facility] REVIEW OF SYSTEMS: All ROS are (-) except for that which is stated above in HPI. PHYSICAL EXAMINATION: Please see VS and PE below. LABORATORY DATA: Labs are remarkable for WBC 10.8 and a normal H&H of 12.5 & 38.2. Neutrophil % 75.4, lymphocyte % 14.6, monocyte %: 5.3, neutrophil #: 8.1 PT: 15.4, INR: 1.20, APTT: 32.7. Na 135, BUN 26, glucose 143, total protein: 9, POC glucose: 208 Please see below for full labs. ASSESSMENT/PLAN: 86 yo F from [facility] is presenting for intractable leg and back pain with difficulty ambulating and rectal bleeding noted in ED. Back pain , leg pain and hand pain: due to neuropathy and spinal stenosis. will continue with home medications and will add ultracet. PT. Can give toradal prn if needed Rectal bleeding: GI bleed which could be secondary to her hemorrhoids vs. colon adenocarcinoma recurrence. We will plan to check H&H q6 hours. Hold patient's xarelto for 2 doses. If H&H stable, may resume xarelto. Liquid diet. IV pantoprazole. Diabetes: Will hold patient's metformin and start sliding scale insulin with fingerstick checks at AC and HS with hypoglycemic protocol in place. Hypertension: Bp controlled will continue with home medications. Diastolic chf : no signs of fluid overload at present. continue lasix and spironolactone. Hypothyroid: continue home medications. atrial fibrillation : rate controled. continue xarelto COPD with pulmonary hypertension and corpulmonale. O2 therapy orders are in place as well as patient has COPD. continue nebulizations. 2 boils on the R inner gluteal cheek will order bactroban DVT ppx: TEDs and SCDs, no pharmacologic prophylaxis at this time due to possible GI bleed--may resume xarelto if H&H remains stable PT consult in place DNR/DNI Immunizations as per protocol My preceptor for this patient encounter was Dr. Rosa M Patel, and was physically present in the building during the encounter and was fully available. As needed , all aspects of the patient interview, examination, medical decision making process, and medical care plan development were reviewed and approved by the preceptor. Preceptor is aware and concurs with the plan as stated in the body of this note and will attest to such by his/her cosignature. Home Medications Scheduled (Aspercreme W/Lidocaine) 4 % Cre, 1 DOSE EXT TID, (Reported) APPLIES TO BOTH HANDS Acetaminophen (Tylenol) 325 Mg Tab, 650 MG PO TID, (Reported) Albuterol Sulfate (Albuterol Sulfate) 2.5 Mg/3 Ml Nebu, 2.5 MG INH BID, ( Reported) Artificial Tears (Artificial Tears 0.1-0.3 %) 1 Erika Erika, 2 DROP OU BID, ( Reported) Cyanocobalamin (Vitamin B-12) 1,000 Mcg Tab, 1,000 MCG PO DAILY, (Reported) Ferrous Sulfate (Ferrous Sulfate) 325 Mg Tab, 325 MG PO DAILY, (Reported) Furosemide (Furosemide) 40 Mg Tab, 60 MG PO DAILY, (Reported) Levothyroxine Sodium (Synthroid) 88 Mcg Tab, 88 MCG PO DAILY, (Reported) Loratadine (Claritin) 10 Mg Tab, 10 MG PO QHS, (Reported) Metformin Hydrochloride (Metformin HCl) 1,000 Mg Tab, 1,000 MG PO BID, (Reported ) TAKES AT 1200 & 1600 Metoprolol Tartrate (Metoprolol Tartrate) 50 Mg Tab, 50 MG PO BID, (Reported) Multivitamins *[facility] STOCKED* (Thera M Plus *[facility] STOCKED*) 1 Tab Tab, 1 TAB PO DAILY, (Reported) Pregabalin (Lyrica) 100 Mg Cap, 100 MG PO TID, (Reported) Rivaroxaban (Xarelto) 20 Mg Tab, 20 MG PO QPM, (Reported) Spironolactone (Spironolactone) 25 Mg Tab, 25 MG PO DAILY, (Reported) Scheduled PRN (Refresh Optive 0.5-0.9 %) 1 Adryan Adryan, 1 ADRYAN OU DAILY PRN for DRY EYES, ( Reported) Acetaminophen (Acetaminophen) 325 Mg Tab, 650 MG PO DAILY PRN for PAIN, ( Reported) Albuterol Sulfate (Albuterol Sulfate) 2.5 Mg/3 Ml Nebu, 2.5 MG INH Q6H PRN for SOB/WHEEZING, (Reported) Hydrocortisone (Anusol-Hc) 2.5 % Cre, 1 DOSE AR TID PRN for HEMORRHOIDS, ( Reported) Milk Of Magnesia (Milk of Magnesia) 1,200 Mg/15 Ml Kayla, 30 ML PO DAILYPRN PRN for CONSTIPATION, (Reported) Prochlorperazine (Prochlorperazine Maleate) 5 Mg Tab, 5 MG PO Q6H PRN for NAUSEA , (Reported) Allergies Coded Allergies: No Known Allergies (Unverified , 12/06/03) Physical Examination General Exam: Positive: Alert, Cooperative, Mild Distress Eye Exam: Negative: Sclera icteric ENT Exam: Positive: Atraumatic, Tongue Midline Neck Exam: Positive: Supple, Negative: JVD, thyromegaly Chest Exam: Positive: Wheezing (mild end expiratory wheezing scattered throughout lung goodwin; otherwise, lung fieds clear), Negative: Rales, Rhonchi Heart Exam: Positive: Rate Normal, Regular Rhythm, Normal S1 Abdomen Exam: Positive: Normal bowel sounds, Soft, Negative: Tenderness, Hepatospenomegaly Extremity Exam: Positive: Normal pulses (+2 dorsalis pedis and radial bilaterally), Negative: Clubbing, Cyanosis, Edema Skin Exam: Positive: Nl turgor and temperature, Negative: Rash Neuro Exam: Positive: Normal Speech, Strength at 5/5 X4 ext, Cranial Nerves 3- 12 NL (bilaterally), Negative: Sensation Intact (+subjective numbness patient reports in hands as well as the dorsum of her feet bilaterally, is able to feel plantar aspect of her feet however) Psych Exam: Positive: Mental status NL, Mood NL, Memory Intact (however patient is an inaccurate historian and digresses from directly answering question), Oriented x 3 (However, not completely to time: reporte the day was Thursday but the month was December and the day was the ) Other physical findings GI Examination: Nonthrombosed hemorrhoids appreciated upon visual inspected without blue/black discoloration/engorgement. + 2 small boils on the R inner gluteal cheek. Vital Signs Vital Signs Date Time Temp Pulse Resp B/P (MAP) Pulse Ox O2 Delivery O2 Flow Rate FiO2 02/04/17 19:00 98.6 72 16 160/72 (101) 93 Room Air Laboratory Data Labs 24H Laboratory Tests 2 02/04/17 14:49: White Blood Count 10.8H, Red Blood Count 4.31, Hemoglobin 12.5, Hematocrit 38.2 , Mean Corpuscular Volume 88.6, Mean Corpuscular Hemoglobin 29.1, Mean Corpuscular Hemoglobin Concent 32.8, Red Cell Distribution Width 14.0, Platelet Count 250, Neutrophils (%) (Auto) 75.4H, Lymphocytes (%) (Auto) 14.6L, Monocytes (%) (Auto) 5.3H, Eosinophils (%) (Auto) 1.6, Basophils (%) (Auto) 0.7 , Neutrophils # (Auto) 8.1H, Lymphocytes # (Auto) 1.8, Monocytes # (Auto) 0.6, Eosinophils # (Auto) 0.2, Basophils # (Auto) 0.1, Large Unclassified Cells % 2.3 , Large Unclassified Cells # 0.3, Prothrombin Time 15.4H, Prothromb Time International Ratio 1.20, Activated Partial Thromboplast Time 32.7, Anion Gap 10 , Glomerular Filtration Rate 57.7, Calcium Level 9.5, Aspartate Amino Transf ( AST/SGOT) 11L, Alanine Aminotransferase (ALT/SGPT) 18, Alkaline Phosphatase 47, Total Bilirubin 0.2, Direct Bilirubin < 0.1, Total Protein 9.0H, Albumin 4.2, Albumin/Globulin Ratio 0.88L, Lipase 328 CBC/BMP Laboratory Tests 02/04/17 14:49 Red Blood Count 4.31, Mean Corpuscular Volume 88.6, Mean Corpuscular Hemoglobin 29.1, Mean Corpuscular Hemoglobin Concent 32.8, Red Cell Distribution Width 14.0 , Neutrophils (%) (Auto) 75.4 H, Lymphocytes (%) (Auto) 14.6 L, Monocytes (%) ( Auto) 5.3 H, Eosinophils (%) (Auto) 1.6, Basophils (%) (Auto) 0.7, Neutrophils # (Auto) 8.1 H, Lymphocytes # (Auto) 1.8, Monocytes # (Auto) 0.6, Eosinophils # (Auto) 0.2, Basophils # (Auto) 0.1 Plan / VTE VTE Prophylaxis Ordered?: Yes (TEDs and SCDs. No pharmacologic prophylaxis at this time due to possible GI bleed. ) DONTAE VARGAS OGME-1 Feb 04, 2017 20:34 ROSA M PATEL MD Feb 07, 2017 12:47
[2017-02-04] MEDS: PANTOPRAZOLE 40MG INJ (PROTONIX) (C9113) IV SCH (20:38)
[2017-02-04] MEDS: PREGABALIN 100 MG CAP (LYRICA) PO SCH (20:38)
[2017-02-04] MEDS: METOPROLOL TART 50 MG TAB PO SCH (20:39)
[2017-02-04] MEDS: LORATADINE 10 MG TAB PO SCH (20:39)
[2017-02-04] MEDS: ULTRACET TAB PO PRN (20:40)
[2017-02-04] MEDS: HumaLOG INSULIN (NovoLOG) PER UNIT SC SCH (21:00)
[2017-02-04] MEDS: ALBUTEROL SULFATE 2.5 MG/0.5 ML INH NEB SOLN INH SCH (21:00)
[2017-02-04 22:00] VITALS: BP 162/54
[2017-02-05] MEDS: POLYVINYL ALCOHOL OPHTH SOLN 15 ML(LIQUITEARS) OU SCH ×3 (00:12→22:10)
[2017-02-05] MEDS: ANALGESIC BALM CRM 120 GM TOP SCH ×4 (00:13→22:11)
[2017-02-05 05:42] LABS: BASO % 0.4 % (0.0-1.0); EOS # 0.3 K/mm3 (0.0-0.50); EOS % 3.2 % (0.0-3.0); LARGE UNSTAINED CELL # 0.3 K/mm3 (0.0-0.4); LARGE UNSTAINED CELL % 3.4 % (0.0-4.0); LYMPH # 2.8 K/mm3 (1.5-4.5); LYMPH % 30.7 % (24.0-44.0); MEAN CORPUSCULAR HEMOGLOBIN 28.9 pg (27.0-33.0); MEAN CORPUSCULAR HGB CONC 32.8 g/dl (32.0-36.5); MEAN CORPUSCULAR VOLUME 87.9 fl (80.0-96.0); MONO # 0.6 K/mm3 (0.0-0.8); MONO % 7.8 % (0.0-5.0); NEUTROPHILS # 4.5 K/mm3 (1.8-7.7); NEUTROPHILS % 54.5 % (36.0-66.0); PLATELET COUNT, AUTOMATED 235 k/mm3 (150-450); RED CELL DISTRIBUTION WIDTH 14.1 % (11.5-14.5); WHITE BLOOD COUNT 8.2 K/mm3 (4.0-10.0)
[2017-02-05 05:48] LABS: CALCIUM LEVEL 8.7 MG/DL (8.8-10.2); CREATININE FOR GFR 0.96 MG/DL (0.55-1.02); GLOMERULAR FILTRATION RATE 58.4 (>32); MAGNESIUM LEVEL 1.4 MG/DL (1.8-2.4); POTASSIUM SERUM 3.7 MEQ/L (3.5-5.1)
[2017-02-05 06:00] VITALS: BP 144/62
[2017-02-05] MEDS: LEVOTHYROXINE 88MCG TABLET (0.088 MG) PO SCH (06:55)
[2017-02-05] MEDS: HumaLOG INSULIN (NovoLOG) PER UNIT SC SCH ×4 (08:10→21:00)
[2017-02-05] MEDS: MULTIVITAMINS/MINERALS THERAP 1 TAB PO SCH (08:11)
[2017-02-05] MEDS: PREGABALIN 100 MG CAP (LYRICA) PO SCH ×3 (08:11→22:10)
[2017-02-05] MEDS: FERROUS SULFATE 325MG TAB PO SCH (08:11)
[2017-02-05] MEDS: MAG SULF 1GM/100ML (MAG RUN) 1 GM in APPROPRIATE DILUENT 1 EA IV SCH ×2 (08:11→09:26)
[2017-02-05] MEDS: METOPROLOL TART 50 MG TAB PO SCH ×2 (08:11→22:10)
[2017-02-05] MEDS: CYANOCOBALAMIN 500 MCG TAB PO SCH (08:12)
[2017-02-05] MEDS: SPIRONOLACTONE 25 MG TAB PO SCH (08:12)
[2017-02-05] MEDS: FUROSEMIDE 20 MG TAB PO SCH (08:12)
[2017-02-05] MEDS: ALBUTEROL SULFATE 2.5 MG/0.5 ML INH NEB SOLN INH SCH ×2 (09:32→19:50)
--- NOTE | 2017-02-05 11:25 | IPNPDOC ---
Text Note Date of Service The patient was seen on 02/05/17. NOTE SUBJECTIVE: 86-year-old female with a PMH significant for spinal stenosis, colon adenocarcinoma status-post R hemicolectomy, GI bleed from adenocarcinoma of the colon, and paroxysmal atrial fibrillation anticoagulated on xarelto, presents to [facility] emergency department for intractable back pain, and bilateral leg pain, ankle pain, foot pain. States she's had chronic pain for years and she's had a spinal surgery to try and correct that. 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 Patient states that this morning before breakfast she began having terrible pain from the back or legs. Then, she states she had to go to the bathroom, after which he vaguely states she had some blood in the toilet, she called the "girls" and told them that she had to go to the hospital after that. States she had to come here to get some help. States she was unable to pick her up her pants after using the bathroom due to the intractable pain. She keeps stating that it's all neuropathic pain that she is feeling which is excruciating. The addition, she states she's always had blood in the stool for hemorrhoids. After she has bowel movements, she states she sometimes bleeds. States that she's had blood in stool for about 4 years. States she takes Tylenol and other pain medications such as morphine that helps with her pain. States it is all nerve damage and overbearing at times. She also admits to bilateral hand numbness, numbness in her feet as well as numbness/tingling in her legs. She denies bowel/bladder incontinence, weakness, fevers, chills, cough, runny nose, sore throat, chest pain, shortness of breath, abdominal pain, nausea, vomiting, diarrhea, constipation, blurred vision, dizziness, headache, falls. She states that she came to the hospital because she was not able to take care of herself due to severe pain. She states that she can usually do things herself and is independent. When asked, she is unable to qualify her pain other than saying it' s all the nerve pain, and denies radiation. Quantifies as it as an 8-9 out of 10 and is asking for pain medication. Today patient has no new medical complaints although she is a questionable historian. OBJECTIVE: General: NAD, lying comfortably in bed HEENT: NC/AT Lungs: mild expiratory wheezes Cardiac: RRR, +S1S2 Abd: obese, soft, NT, +BS Ext: no edema PLAN: 1. Intractable leg and back pain with difficulty ambulating - PT eval 2. neuropathy and spinal stenosis 3. GI Bleed - serial CBC - stable for now - xarelto on hold 4. Diabetes - ISS 5. Adenocarcinoma of the colon status post laparoscopic right hemicolectomy on 09/08/2016, colonoscopy on 09/03/2016, and EGD showing right cecal mass Colon adenocarcinoma, right cecum. 6. Electrolyte abnormalities - continue to follow and replete as needed 7. Hypothyroidism 8. Hypertension 9. History of COPD 10. Paroxysmal Atrial fibrillation - xarelto on hold 12. COPD 13. CHF with diastolic dysfunction DVT ppx: TEDs and SCDs DNR/DNI VS,Fishbone, I+O VS, Fishbone, I+O Laboratory Tests 02/04/17 14:49 Red Blood Count 4.31, Mean Corpuscular Volume 88.6, Mean Corpuscular Hemoglobin 29.1, Mean Corpuscular Hemoglobin Concent 32.8, Red Cell Distribution Width 14.0 , Neutrophils (%) (Auto) 75.4 H, Lymphocytes (%) (Auto) 14.6 L, Monocytes (%) ( Auto) 5.3 H, Eosinophils (%) (Auto) 1.6, Basophils (%) (Auto) 0.7, Neutrophils # (Auto) 8.1 H, Lymphocytes # (Auto) 1.8, Monocytes # (Auto) 0.6, Eosinophils # (Auto) 0.2, Basophils # (Auto) 0.1 02/04/17 21:01 02/05/17 05:17 Red Blood Count 3.59 L, Mean Corpuscular Volume 87.9, Mean Corpuscular Hemoglobin 28.9, Mean Corpuscular Hemoglobin Concent 32.8, Red Cell Distribution Width 14.1, Neutrophils (%) (Auto) 54.5, Lymphocytes (%) (Auto) 30.7, Monocytes (%) (Auto) 7.8 H, Eosinophils (%) (Auto) 3.2 H, Basophils (%) ( Auto) 0.4, Neutrophils # (Auto) 4.5, Lymphocytes # (Auto) 2.8, Monocytes # (Auto ) 0.6, Eosinophils # (Auto) 0.3, Basophils # (Auto) 0.0, Calcium Level 8.7 L 02/05/17 07:11 Vital Signs Date Time Temp Pulse Resp B/P (MAP) Pulse Ox O2 Delivery O2 Flow Rate FiO2 02/05/17 08:11 65 144/62 02/05/17 06:00 98.1 18 91 Room Air I&O- Last 24 Hours up to 6 AM 02/05/17 06:00 Intake Total 60 ml Output Total 450 ml Balance -390 ml JOSLYN TRAMMELL MD Feb 05, 2017 11:25
[2017-02-05] MEDS ORDERED: metFORMIN (GLUCOPHAGE) 1000 MG TABLET PO SCH (12:00)
[2017-02-05] MEDS: ULTRACET TAB PO PRN ×2 (12:37→22:09)
[2017-02-05 14:00] VITALS: BP_SYST 140; BP_SYST 141; BP_SYST 145; BP_DIAS 65; BP_DIAS 66; BP_DIAS 68
[2017-02-05 22:00] VITALS: BP_SYST 129; BP_SYST 146; BP_SYST 153; BP_DIAS 58; BP_DIAS 64; BP_DIAS 69
[2017-02-05] MEDS: PANTOPRAZOLE 40MG INJ (PROTONIX) (C9113) IV SCH (22:09)
[2017-02-05] MEDS: LORATADINE 10 MG TAB PO SCH (22:10)
[2017-02-06 06:00] VITALS: BP_SYST 133; BP_SYST 142; BP_SYST 148; BP_DIAS 62; BP_DIAS 65; BP_DIAS 69
[2017-02-06] MEDS: LEVOTHYROXINE 88MCG TABLET (0.088 MG) PO SCH (06:36)
[2017-02-06] MEDS: ULTRACET TAB PO PRN ×2 (06:56→17:16)
[2017-02-06 07:04] LABS: BASO # 0.1 K/mm3 (0.0-0.2); BASO % 0.8 % (0.0-1.0); EOS # 0.3 K/mm3 (0.0-0.50); LARGE UNSTAINED CELL # 0.2 K/mm3 (0.0-0.4); LARGE UNSTAINED CELL % 3.5 % (0.0-4.0); LYMPH # 2.5 K/mm3 (1.5-4.5); LYMPH % 32.5 % (24.0-44.0); MEAN CORPUSCULAR HGB CONC 32.9 g/dl (32.0-36.5); MEAN CORPUSCULAR VOLUME 88.1 fl (80.0-96.0); MONO # 0.6 K/mm3 (0.0-0.8); MONO % 8.3 % (0.0-5.0); NEUTROPHILS # 3.6 K/mm3 (1.8-7.7); NEUTROPHILS % 50.9 % (36.0-66.0); PLATELET COUNT, AUTOMATED 226 k/mm3 (150-450)
[2017-02-06 07:16] LABS: CALCIUM LEVEL 9.1 MG/DL (8.8-10.2); CREATININE FOR GFR 0.97 MG/DL (0.55-1.02); GLOMERULAR FILTRATION RATE 57.7 (>32); MAGNESIUM LEVEL 1.9 MG/DL (1.8-2.4)
[2017-02-06] MEDS: cefTRIAXone SOD 1 GM in D5W MINI-BAG PLUS 50 ML IV SCH (08:01)
[2017-02-06] MEDS: HumaLOG INSULIN (NovoLOG) PER UNIT SC SCH ×4 (08:01→21:00)
[2017-02-06] MEDS: CYANOCOBALAMIN 500 MCG TAB PO SCH (08:02)
[2017-02-06] MEDS: MULTIVITAMINS/MINERALS THERAP 1 TAB PO SCH (08:02)
[2017-02-06] MEDS: SPIRONOLACTONE 25 MG TAB PO SCH (08:02)
[2017-02-06] MEDS: FUROSEMIDE 20 MG TAB PO SCH (08:02)
[2017-02-06] MEDS: FERROUS SULFATE 325MG TAB PO SCH (08:03)
[2017-02-06] MEDS: METOPROLOL TART 50 MG TAB PO SCH ×2 (08:03→22:03)
[2017-02-06] MEDS: PREGABALIN 100 MG CAP (LYRICA) PO SCH ×3 (08:03→22:03)
[2017-02-06] MEDS: POLYVINYL ALCOHOL OPHTH SOLN 15 ML(LIQUITEARS) OU SCH ×2 (08:04→22:06)
[2017-02-06] MEDS: ANALGESIC BALM CRM 120 GM TOP SCH ×3 (08:04→22:06)
--- NOTE | 2017-02-06 08:17 | IPNPDOC ---
Text Note Date of Service The patient was seen on 02/06/17. NOTE SUBJECTIVE: 86-year-old female with a PMH significant for spinal stenosis, colon adenocarcinoma status-post R hemicolectomy, GI bleed from adenocarcinoma of the colon, and paroxysmal atrial fibrillation anticoagulated on xarelto, presents to [facility] emergency department for intractable back pain, and bilateral leg pain, ankle pain, foot pain. States she's had chronic pain for years and she's had a spinal surgery to try and correct that. 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 Patient states that this morning before breakfast she began having terrible pain from the back or legs. Then, she states she had to go to the bathroom, after which he vaguely states she had some blood in the toilet, she called the "girls" and told them that she had to go to the hospital after that. States she had to come here to get some help. States she was unable to pick her up her pants after using the bathroom due to the intractable pain. She keeps stating that it's all neuropathic pain that she is feeling which is excruciating. The addition, she states she's always had blood in the stool for hemorrhoids. After she has bowel movements, she states she sometimes bleeds. States that she's had blood in stool for about 4 years. States she takes Tylenol and other pain medications such as morphine that helps with her pain. States it is all nerve damage and overbearing at times. She also admits to bilateral hand numbness, numbness in her feet as well as numbness/tingling in her legs. She denies bowel/bladder incontinence, weakness, fevers, chills, cough, runny nose, sore throat, chest pain, shortness of breath, abdominal pain, nausea, vomiting, diarrhea, constipation, blurred vision, dizziness, headache, falls. She states that she came to the hospital because she was not able to take care of herself due to severe pain. She states that she can usually do things herself and is independent. When asked, she is unable to qualify her pain other than saying it' s all the nerve pain, and denies radiation. Quantifies as it as an 8-9 out of 10 and is asking for pain medication. Patient seen and examined at bedside. Possibly admitting to polyuria. Still with her chronic back pain. Poor historian. OBJECTIVE: General: NAD, lying comfortably in bed HEENT: NC/AT Lungs: mild expiratory wheezes Cardiac: RRR, +S1S2 Abd: obese, soft, NT, +BS Ext: no edema PLAN: 1. Intractable leg and back pain with difficulty ambulating - PT eval 2. neuropathy and spinal stenosis 3. GI Bleed - serial CBC - stable but slowly trending down - xarelto on hold - no reports of further blood in stool - stool guaic pending 4. Diabetes - ISS 5. Adenocarcinoma of the colon status post laparoscopic right hemicolectomy on 09/08/2016, colonoscopy on 09/03/2016, and EGD showing right cecal mass Colon adenocarcinoma, right cecum. - CT A/P pending 6. Electrolyte abnormalities - continue to follow and replete as needed 7. Hypothyroidism 8. Hypertension 9. History of COPD 10. Paroxysmal Atrial fibrillation - xarelto on hold - resume if H/H remains stable 12. COPD 13. CHF with diastolic dysfunction DVT ppx: TEDs and SCDs DNR/DNI VS,Fishbone, I+O VS, Fishbone, I+O Laboratory Tests 02/05/17 15:04 02/06/17 06:23 Red Blood Count 3.54 L, Mean Corpuscular Volume 88.1, Mean Corpuscular Hemoglobin 29.0, Mean Corpuscular Hemoglobin Concent 32.9, Red Cell Distribution Width 14.0, Neutrophils (%) (Auto) 50.9, Lymphocytes (%) (Auto) 32.5, Monocytes (%) (Auto) 8.3 H, Eosinophils (%) (Auto) 4.0 H, Basophils (%) ( Auto) 0.8, Neutrophils # (Auto) 3.6, Lymphocytes # (Auto) 2.5, Monocytes # (Auto ) 0.6, Eosinophils # (Auto) 0.3, Basophils # (Auto) 0.1, Calcium Level 9.1 Vital Signs Date Time Temp Pulse Resp B/P (MAP) Pulse Ox O2 Delivery O2 Flow Rate FiO2 02/06/17 08:05 18 02/06/17 08:03 76 139/66 02/06/17 06:00 96.6 90 Room Air I&O- Last 24 Hours up to 6 AM 02/06/17 05:59 Intake Total 580 ml Output Total 1000 ml Balance -420 ml JOSLYN TRAMMELL MD Feb 06, 2017 08:16
[2017-02-06] MEDS: ALBUTEROL SULFATE 2.5 MG/0.5 ML INH NEB SOLN INH SCH ×2 (08:22→20:44)
--- NOTE | 2017-02-06 09:27 | REP ---
CT of the abdomen and pelvis without IV or bowel contrast: Comparison is 09/03/2016. The patient complains of abdominal pain and distension and has history of colon carcinoma with hemicolectomy. Additionally, the patient has a hysterectomy and appendectomy. The visualized lung goodwin are unremarkable except for dependent atelectasis. The unenhanced hepatic parenchyma, gallbladder, pancreas and spleen are homogeneous, normal size and unremarkable. There is a hiatal hernia. The adrenals and kidneys are unremarkable except for a 2 mm nonobstructive right renal calculus at the mid pole. The abdominal aorta is unremarkable except for calcified atheroma. There is no bowel distension. There is an anastomotic suture line in the proximal transverse colon compatible with a right hemicolectomy. Pelvis: The previous right adnexal cyst has resolved. The vaginal cuff and adnexa are unremarkable. The bladder is unremarkable. The pelvic bowel loops are unremarkable. There is no ascites or adenopathy. There is multilevel degenerative disc disease in the lumbar spine and mild grade 1 anterolisthesis of L5 without spondylolysis. Impression: No bowel obstruction or distension. No ascites or adenopathy. Right hemicolectomy, hysterectomy, appendectomy. No adenopathy or ascites. Nonobstructive right renal calculus. Signed by Guanaco Mccurdy MD 02/06/2017 09:18 A
[2017-02-06 22:00] VITALS: BP 131/58
[2017-02-06] MEDS: LORATADINE 10 MG TAB PO SCH (22:03)
[2017-02-06] MEDS: NYSTATIN 100,000 UNITS/GM TOPICAL PWD 15 GM TOP SCH (22:04)
[2017-02-06] MEDS: PANTOPRAZOLE 40MG INJ (PROTONIX) (C9113) IV SCH (22:06)
[2017-02-06] MEDS: MUPIROCIN 2% CREAM 30GM TOP SCH (22:06)
[2017-02-07] MEDS: ULTRACET TAB PO PRN ×2 (03:05→11:06)
[2017-02-07 06:00] VITALS: BP 136/68
[2017-02-07 06:34] LABS: BASO % 0.6 % (0.0-1.0); EOS # 0.3 K/mm3 (0.0-0.50); EOS % 3.6 % (0.0-3.0); LARGE UNSTAINED CELL # 0.3 K/mm3 (0.0-0.4); LARGE UNSTAINED CELL % 3.8 % (0.0-4.0); LYMPH # 2.1 K/mm3 (1.5-4.5); LYMPH % 25.9 % (24.0-44.0); MEAN CORPUSCULAR HEMOGLOBIN 28.7 pg (27.0-33.0); MEAN CORPUSCULAR HGB CONC 32.6 g/dl (32.0-36.5); MEAN CORPUSCULAR VOLUME 88.2 fl (80.0-96.0); MONO # 0.5 K/mm3 (0.0-0.8); MONO % 7.6 % (0.0-5.0); NEUTROPHILS # 4.2 K/mm3 (1.8-7.7); NEUTROPHILS % 58.4 % (36.0-66.0); PLATELET COUNT, AUTOMATED 213 k/mm3 (150-450); RED CELL DISTRIBUTION WIDTH 13.9 % (11.5-14.5); WHITE BLOOD COUNT 7.1 K/mm3 (4.0-10.0)
[2017-02-07] MEDS: LEVOTHYROXINE 88MCG TABLET (0.088 MG) PO SCH (06:53)
[2017-02-07] MEDS: cefTRIAXone SOD 1 GM in D5W MINI-BAG PLUS 50 ML IV SCH (06:53)
[2017-02-07 07:05] LABS: ANION GAP 8 MEQ/L (8-16); BLOOD UREA NITROGEN 24 MG/DL (7-18); CARBON DIOXIDE LEVEL 30 MEQ/L (21-32); CHLORIDE LEVEL 100 MEQ/L (98-107); CREATININE FOR GFR 0.93 MG/DL (0.55-1.02); GLOMERULAR FILTRATION RATE > 60.0 (>32); GLUCOSE, FASTING 141 MG/DL (83-110); MAGNESIUM LEVEL 1.6 MG/DL (1.8-2.4); POTASSIUM SERUM 4.2 MEQ/L (3.5-5.1); SODIUM LEVEL 138 MEQ/L (136-145)
[2017-02-07 07:30] VITALS: BP_SYST 147; BP_SYST 153; BP_SYST 170; BP_DIAS 65; BP_DIAS 67; BP_DIAS 75
[2017-02-07] MEDS: ALBUTEROL SULFATE 2.5 MG/0.5 ML INH NEB SOLN INH SCH ×2 (07:39→20:22)
[2017-02-07 08:00] VITALS: BP_SYST 147; BP_SYST 153; BP_SYST 170; BP_DIAS 65; BP_DIAS 67; BP_DIAS 75
[2017-02-07] MEDS: HumaLOG INSULIN (NovoLOG) PER UNIT SC SCH ×4 (08:14→20:28)
[2017-02-07 08:48] VITALS: BP 151/65
[2017-02-07] MEDS: PREGABALIN 100 MG CAP (LYRICA) PO SCH ×3 (09:52→20:27)
[2017-02-07] MEDS: FUROSEMIDE 20 MG TAB PO SCH (09:52)
[2017-02-07] MEDS: CYANOCOBALAMIN 500 MCG TAB PO SCH (09:52)
[2017-02-07] MEDS: SPIRONOLACTONE 25 MG TAB PO SCH (09:52)
[2017-02-07] MEDS: MULTIVITAMINS/MINERALS THERAP 1 TAB PO SCH (09:52)
[2017-02-07] MEDS: METOPROLOL TART 50 MG TAB PO SCH ×2 (09:53→20:27)
[2017-02-07] MEDS: FERROUS SULFATE 325MG TAB PO SCH (09:53)
[2017-02-07] MEDS: NYSTATIN 100,000 UNITS/GM TOPICAL PWD 15 GM TOP SCH ×2 (09:53→20:30)
[2017-02-07] MEDS: POLYVINYL ALCOHOL OPHTH SOLN 15 ML(LIQUITEARS) OU SCH ×2 (09:54→20:28)
[2017-02-07] MEDS: ANALGESIC BALM CRM 120 GM TOP SCH ×3 (09:55→20:29)
[2017-02-07] MEDS: MUPIROCIN 2% CREAM 30GM TOP SCH ×3 (09:55→20:28)
[2017-02-07] MEDS ORDERED: MAG SULF 1GM/100ML (MAG RUN) 1 GM in APPROPRIATE DILUENT 1 EA IV ONE (10:45)
--- NOTE | 2017-02-07 10:56 | IPNPDOC ---
Text Note Date of Service The patient was seen on 02/07/17. NOTE SUBJECTIVE: 86-year-old female with a PMH significant for spinal stenosis, colon adenocarcinoma status-post R hemicolectomy, GI bleed from adenocarcinoma of the colon, and paroxysmal atrial fibrillation anticoagulated on xarelto, presents to [facility] emergency department for intractable back pain, and bilateral leg pain, ankle pain, foot pain. States she's had chronic pain for years and she's had a spinal surgery to try and correct that. 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 Patient states that this morning before breakfast she began having terrible pain from the back or legs. Then, she states she had to go to the bathroom, after which he vaguely states she had some blood in the toilet, she called the "girls" and told them that she had to go to the hospital after that. States she had to come here to get some help. States she was unable to pick her up her pants after using the bathroom due to the intractable pain. She keeps stating that it's all neuropathic pain that she is feeling which is excruciating. The addition, she states she's always had blood in the stool for hemorrhoids. After she has bowel movements, she states she sometimes bleeds. States that she's had blood in stool for about 4 years. States she takes Tylenol and other pain medications such as morphine that helps with her pain. States it is all nerve damage and overbearing at times. She also admits to bilateral hand numbness, numbness in her feet as well as numbness/tingling in her legs. She denies bowel/bladder incontinence, weakness, fevers, chills, cough, runny nose, sore throat, chest pain, shortness of breath, abdominal pain, nausea, vomiting, diarrhea, constipation, blurred vision, dizziness, headache, falls. She states that she came to the hospital because she was not able to take care of herself due to severe pain. She states that she can usually do things herself and is independent. When asked, she is unable to qualify her pain other than saying it' s all the nerve pain, and denies radiation. Quantifies as it as an 8-9 out of 10 and is asking for pain medication. Patient seen and examined at bedside. Questionable historian, however mentation does seem improved today. Nursing reports of blood per rectum, no bowel movement. OBJECTIVE: General: NAD, lying comfortably in bed HEENT: NC/AT Lungs: mild expiratory wheezes Cardiac: RRR, +S1S2 Abd: obese, soft, NT, +BS Ext: no edema PLAN: 1. Intractable leg and back pain with difficulty ambulating - PT eval 2. neuropathy and spinal stenosis 3. GI Bleed - serial CBC - stable - xarelto on hold - will advance diet - d/w surgery, likely hemorrhoidal bleed - will continue to monitor 4. Diabetes - ISS 5. Adenocarcinoma of the colon status post laparoscopic right hemicolectomy on 09/08/2016, colonoscopy on 09/03/2016, and EGD showing right cecal mass Colon adenocarcinoma, right cecum. - CT A/P no acute pathology 6. Electrolyte abnormalities - continue to follow and replete as needed 7. Hypothyroidism 8. Hypertension 9. History of COPD 10. Paroxysmal Atrial fibrillation - xarelto on hold 12. COPD 13. CHF with diastolic dysfunction DVT ppx: TEDs and SCDs DNR/DNI VS,Fishbone, I+O VS, Fishbone, I+O Laboratory Tests 02/07/17 05:57 Red Blood Count 3.54 L, Mean Corpuscular Volume 88.2, Mean Corpuscular Hemoglobin 28.7, Mean Corpuscular Hemoglobin Concent 32.6, Red Cell Distribution Width 13.9, Neutrophils (%) (Auto) 58.4, Lymphocytes (%) (Auto) 25.9, Monocytes (%) (Auto) 7.6 H, Eosinophils (%) (Auto) 3.6 H, Basophils (%) ( Auto) 0.6, Neutrophils # (Auto) 4.2, Lymphocytes # (Auto) 2.1, Monocytes # (Auto ) 0.5, Eosinophils # (Auto) 0.3, Basophils # (Auto) 0.0, Calcium Level 9.0 Vital Signs Date Time Temp Pulse Resp B/P (MAP) Pulse Ox O2 Delivery O2 Flow Rate FiO2 02/07/17 08:48 99.3 58 16 151/65 (93) 91 Nasal Cannula 2.0 I&O- Last 24 Hours up to 6 AM 02/07/17 05:59 Intake Total 290 ml Output Total 400 ml Balance -110 ml LALDIN,JOSLYN S. MD Feb 07, 2017 10:55
[2017-02-07] MEDS: PANTOPRAZOLE 40MG INJ (PROTONIX) (C9113) IV SCH (20:27)
[2017-02-07] MEDS: LORATADINE 10 MG TAB PO SCH (20:27)
[2017-02-07] MEDS ORDERED: RIVAROXABAN 20 MG TAB (XARELTO) PO SCH (21:00)
[2017-02-07 22:00] VITALS: BP 126/61
[2017-02-08] MEDS: ULTRACET TAB PO PRN ×2 (01:59→16:20)
[2017-02-08 06:00] VITALS: BP_SYST 121; BP_SYST 130; BP_SYST 133; BP_DIAS 58; BP_DIAS 64; BP_DIAS 89
[2017-02-08 06:17] LABS: BASO % 0.7 % (0.0-1.0); EOS # 0.3 K/mm3 (0.0-0.50); EOS % 4.1 % (0.0-3.0); LARGE UNSTAINED CELL # 0.2 K/mm3 (0.0-0.4); LYMPH # 1.8 K/mm3 (1.5-4.5); LYMPH % 23.4 % (24.0-44.0); MEAN CORPUSCULAR HEMOGLOBIN 29.2 pg (27.0-33.0); MEAN CORPUSCULAR HGB CONC 32.6 g/dl (32.0-36.5); MEAN CORPUSCULAR VOLUME 89.8 fl (80.0-96.0); MONO # 0.5 K/mm3 (0.0-0.8); NEUTROPHILS # 4.1 K/mm3 (1.8-7.7); NEUTROPHILS % 60.7 % (36.0-66.0); PLATELET COUNT, AUTOMATED 217 k/mm3 (150-450); RED CELL DISTRIBUTION WIDTH 14.3 % (11.5-14.5); WHITE BLOOD COUNT 6.8 K/mm3 (4.0-10.0)
[2017-02-08 06:39] LABS: CALCIUM LEVEL 8.9 MG/DL (8.8-10.2); CREATININE FOR GFR 0.96 MG/DL (0.55-1.02); GLOMERULAR FILTRATION RATE 58.4 (>32); MAGNESIUM LEVEL 1.8 MG/DL (1.8-2.4); POTASSIUM SERUM 4.3 MEQ/L (3.5-5.1)
[2017-02-08] MEDS: cefTRIAXone SOD 1 GM in D5W MINI-BAG PLUS 50 ML IV SCH (06:51)
[2017-02-08] MEDS: LEVOTHYROXINE 88MCG TABLET (0.088 MG) PO SCH (06:51)
[2017-02-08] MEDS: ALBUTEROL SULFATE 2.5 MG/0.5 ML INH NEB SOLN INH SCH ×2 (07:23→19:18)
--- NOTE | 2017-02-08 08:48 | IPNPDOC ---
Text Note Date of Service The patient was seen on 02/08/17. NOTE SUBJECTIVE: 86-year-old female with a PMH significant for spinal stenosis, colon adenocarcinoma status-post R hemicolectomy, GI bleed from adenocarcinoma of the colon, and paroxysmal atrial fibrillation anticoagulated on xarelto, presents to [facility] emergency department for intractable back pain, and bilateral leg pain, ankle pain, foot pain. States she's had chronic pain for years and she's had a spinal surgery to try and correct that. 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 Patient states that this morning before breakfast she began having terrible pain from the back or legs. Then, she states she had to go to the bathroom, after which he vaguely states she had some blood in the toilet, she called the "girls" and told them that she had to go to the hospital after that. States she had to come here to get some help. States she was unable to pick her up her pants after using the bathroom due to the intractable pain. She keeps stating that it's all neuropathic pain that she is feeling which is excruciating. The addition, she states she's always had blood in the stool for hemorrhoids. After she has bowel movements, she states she sometimes bleeds. States that she's had blood in stool for about 4 years. States she takes Tylenol and other pain medications such as morphine that helps with her pain. States it is all nerve damage and overbearing at times. She also admits to bilateral hand numbness, numbness in her feet as well as numbness/tingling in her legs. She denies bowel/bladder incontinence, weakness, fevers, chills, cough, runny nose, sore throat, chest pain, shortness of breath, abdominal pain, nausea, vomiting, diarrhea, constipation, blurred vision, dizziness, headache, falls. She states that she came to the hospital because she was not able to take care of herself due to severe pain. She states that she can usually do things herself and is independent. When asked, she is unable to qualify her pain other than saying it' s all the nerve pain, and denies radiation. Quantifies as it as an 8-9 out of 10 and is asking for pain medication. Patient seen and examined at bedside. No new medical complaints. In good spirits. Reports had one bowel movement, unknown if any blood present. OBJECTIVE: General: NAD, lying comfortably in bed HEENT: NC/AT Lungs: mild expiratory wheezes Cardiac: RRR, +S1S2 Abd: obese, soft, NT, +BS Ext: no edema PLAN: 1. Intractable leg and back pain with difficulty ambulating - PT eval 2. neuropathy and spinal stenosis 3. UTI - Klebsiella - IV Abx - ceftriaxone 3. GI Bleed - serial CBC - slowly trending down - xarelto on hold - continue soft food diet - d/w surgery, likely hemorrhoidal bleed - will continue to monitor 4. Diabetes - ISS 5. Adenocarcinoma of the colon status post laparoscopic right hemicolectomy on 09/08/2016, colonoscopy on 09/03/2016, and EGD showing right cecal mass Colon adenocarcinoma, right cecum. - CT A/P no acute pathology 6. Electrolyte abnormalities - continue to follow and replete as needed 7. Hypothyroidism 8. Hypertension 9. History of COPD 10. Paroxysmal Atrial fibrillation - xarelto on hold 12. COPD 13. CHF with diastolic dysfunction 14. Gait dysfunction - requires further PT DVT ppx: TEDs and SCDs DNR/DNI VS,Fishbone, I+O VS, Fishbone, I+O Laboratory Tests 02/08/17 05:52 Red Blood Count 3.42 L, Mean Corpuscular Volume 89.8, Mean Corpuscular Hemoglobin 29.2, Mean Corpuscular Hemoglobin Concent 32.6, Red Cell Distribution Width 14.3, Neutrophils (%) (Auto) 60.7, Lymphocytes (%) (Auto) 23.4 L, Monocytes (%) (Auto) 8.0 H, Eosinophils (%) (Auto) 4.1 H, Basophils (%) (Auto) 0.7, Neutrophils # (Auto) 4.1, Lymphocytes # (Auto) 1.8, Monocytes # ( Auto) 0.5, Eosinophils # (Auto) 0.3, Basophils # (Auto) 0.0, Calcium Level 8.9 Vital Signs Date Time Temp Pulse Resp B/P (MAP) Pulse Ox O2 Delivery O2 Flow Rate FiO2 02/08/17 06:00 98.4 65 18 121/58 (79) 93 Nasal Cannula 1.0 I&O- Last 24 Hours up to 6 AM 8/13/17 06:00 Intake Total 820 ml Output Total 1020 ml Balance -200 ml JOSLYN TRAMMELL MD Feb 08, 2017 08:48
[2017-02-08] MEDS: MUPIROCIN 2% CREAM 30GM TOP SCH ×3 (09:00→20:50)
[2017-02-08] MEDS: NYSTATIN 100,000 UNITS/GM TOPICAL PWD 15 GM TOP SCH ×2 (09:00→19:46)
[2017-02-08] MEDS: POLYVINYL ALCOHOL OPHTH SOLN 15 ML(LIQUITEARS) OU SCH ×2 (09:00→19:45)
[2017-02-08] MEDS: ANALGESIC BALM CRM 120 GM TOP SCH ×3 (09:00→20:50)
[2017-02-08] MEDS: METOPROLOL TART 50 MG TAB PO SCH ×2 (10:17→19:54)
[2017-02-08] MEDS: FUROSEMIDE 20 MG TAB PO SCH (10:18)
[2017-02-08] MEDS: FERROUS SULFATE 325MG TAB PO SCH (10:18)
[2017-02-08] MEDS: SPIRONOLACTONE 25 MG TAB PO SCH (10:19)
[2017-02-08] MEDS: CYANOCOBALAMIN 500 MCG TAB PO SCH (10:19)
[2017-02-08] MEDS: PREGABALIN 100 MG CAP (LYRICA) PO SCH ×3 (10:19→19:43)
[2017-02-08] MEDS: MULTIVITAMINS/MINERALS THERAP 1 TAB PO SCH (10:20)
[2017-02-08] MEDS: HumaLOG INSULIN (NovoLOG) PER UNIT SC SCH ×4 (10:21→21:00)
[2017-02-08 14:00] VITALS: BP 144/66
[2017-02-08] MEDS: PANTOPRAZOLE 40MG INJ (PROTONIX) (C9113) IV SCH (19:43)
[2017-02-08] MEDS: LORATADINE 10 MG TAB PO SCH (19:45)
[2017-02-08 22:00] VITALS: BP 134/60
[2017-02-09 06:00] VITALS: BP 144/64
[2017-02-09 06:05] VITALS: BP 142/60
[2017-02-09 06:10] VITALS: BP 140/52
[2017-02-09] MEDS: cefTRIAXone SOD 1 GM in D5W MINI-BAG PLUS 50 ML IV SCH (06:40)
[2017-02-09] MEDS: LEVOTHYROXINE 88MCG TABLET (0.088 MG) PO SCH (06:40)
[2017-02-09] MEDS: ULTRACET TAB PO PRN ×2 (06:48→22:11)
[2017-02-09] MEDS: HumaLOG INSULIN (NovoLOG) PER UNIT SC SCH ×4 (07:30→22:13)
[2017-02-09] MEDS: ALBUTEROL SULFATE 2.5 MG/0.5 ML INH NEB SOLN INH SCH ×2 (07:36→19:21)
[2017-02-09 08:05] LABS: BASO % 0.8 % (0.0-1.0); EOS # 0.2 K/mm3 (0.0-0.50); EOS % 2.6 % (0.0-3.0); LARGE UNSTAINED CELL # 0.2 K/mm3 (0.0-0.4); LARGE UNSTAINED CELL % 3.5 % (0.0-4.0); LYMPH # 1.4 K/mm3 (1.5-4.5); LYMPH % 17.2 % (24.0-44.0); MEAN CORPUSCULAR HEMOGLOBIN 29.3 pg (27.0-33.0); MEAN CORPUSCULAR HGB CONC 32.5 g/dl (32.0-36.5); MEAN CORPUSCULAR VOLUME 90.2 fl (80.0-96.0); MONO # 0.7 K/mm3 (0.0-0.8); NEUTROPHILS # 4.5 K/mm3 (1.8-7.7); NEUTROPHILS % 65.9 % (36.0-66.0); PLATELET COUNT, AUTOMATED 245 k/mm3 (150-450); RED CELL DISTRIBUTION WIDTH 14.4 % (11.5-14.5); WHITE BLOOD COUNT 6.8 K/mm3 (4.0-10.0)
[2017-02-09] MEDS: FUROSEMIDE 20 MG TAB PO SCH (08:09)
[2017-02-09] MEDS: MOM 30ML SUSPENSION UDC PO PRN (08:09)
[2017-02-09] MEDS: FERROUS SULFATE 325MG TAB PO SCH (08:10)
[2017-02-09] MEDS: CYANOCOBALAMIN 500 MCG TAB PO SCH (08:10)
[2017-02-09] MEDS: PREGABALIN 100 MG CAP (LYRICA) PO SCH ×3 (08:10→22:08)
[2017-02-09] MEDS: MULTIVITAMINS/MINERALS THERAP 1 TAB PO SCH (08:10)
[2017-02-09] MEDS: SPIRONOLACTONE 25 MG TAB PO SCH (08:10)
[2017-02-09] MEDS: METOPROLOL TART 50 MG TAB PO SCH ×2 (08:10→22:11)
[2017-02-09] MEDS: MUPIROCIN 2% CREAM 30GM TOP SCH ×3 (08:12→22:14)
[2017-02-09] MEDS: ANALGESIC BALM CRM 120 GM TOP SCH ×3 (08:12→22:14)
[2017-02-09] MEDS: NYSTATIN 100,000 UNITS/GM TOPICAL PWD 15 GM TOP SCH ×2 (08:12→22:13)
[2017-02-09] MEDS: POLYVINYL ALCOHOL OPHTH SOLN 15 ML(LIQUITEARS) OU SCH ×2 (08:14→22:13)
[2017-02-09 08:15] LABS: ANION GAP 10 MEQ/L (8-16); BLOOD UREA NITROGEN 20 MG/DL (7-18); CALCIUM LEVEL 8.4 MG/DL (8.8-10.2); CARBON DIOXIDE LEVEL 29 MEQ/L (21-32); CHLORIDE LEVEL 101 MEQ/L (98-107); CREATININE FOR GFR 0.89 MG/DL (0.55-1.02); GLOMERULAR FILTRATION RATE > 60.0 (>32); GLUCOSE, FASTING 164 MG/DL (83-110); MAGNESIUM LEVEL 1.6 MG/DL (1.8-2.4); SODIUM LEVEL 140 MEQ/L (136-145)
[2017-02-09] MEDS ORDERED: MAG SULF 1GM/100ML (MAG RUN) 1 GM in APPROPRIATE DILUENT 1 EA IV ONE (10:30)
[2017-02-09 14:00] VITALS: BP 135/56
[2017-02-09 22:00] VITALS: BP 143/62
[2017-02-09] MEDS: LORATADINE 10 MG TAB PO SCH (22:12)
[2017-02-09] MEDS: PANTOPRAZOLE 40MG INJ (PROTONIX) (C9113) IV SCH (22:13)
[2017-02-10 06:00] VITALS: BP_SYST 123; BP_SYST 138; BP_SYST 147; BP_DIAS 62; BP_DIAS 63; BP_DIAS 65
[2017-02-10] MEDS: LEVOTHYROXINE 88MCG TABLET (0.088 MG) PO SCH (06:38)
[2017-02-10] MEDS: cefTRIAXone SOD 1 GM in D5W MINI-BAG PLUS 50 ML IV SCH (06:39)
[2017-02-10 07:08] LABS: BASO % 0.9 % (0.0-1.0); EOS # 0.2 K/mm3 (0.0-0.50); EOS % 3.7 % (0.0-3.0); LARGE UNSTAINED CELL # 0.3 K/mm3 (0.0-0.4); LARGE UNSTAINED CELL % 4.7 % (0.0-4.0); LYMPH # 2.2 K/mm3 (1.5-4.5); LYMPH % 33.1 % (24.0-44.0); MEAN CORPUSCULAR HEMOGLOBIN 28.4 pg (27.0-33.0); MEAN CORPUSCULAR HGB CONC 31.5 g/dl (32.0-36.5); MEAN CORPUSCULAR VOLUME 90.4 fl (80.0-96.0); MONO # 0.5 K/mm3 (0.0-0.8); MONO % 9.4 % (0.0-5.0); NEUTROPHILS # 2.8 K/mm3 (1.8-7.7); NEUTROPHILS % 48.3 % (36.0-66.0); PLATELET COUNT, AUTOMATED 234 k/mm3 (150-450); RED CELL DISTRIBUTION WIDTH 14.4 % (11.5-14.5); WHITE BLOOD COUNT 5.7 K/mm3 (4.0-10.0)
[2017-02-10 07:20] LABS: ANION GAP 12 MEQ/L (8-16); BLOOD UREA NITROGEN 22 MG/DL (7-18); CALCIUM LEVEL 8.7 MG/DL (8.8-10.2); CARBON DIOXIDE LEVEL 28 MEQ/L (21-32); CHLORIDE LEVEL 100 MEQ/L (98-107); CREATININE FOR GFR 0.92 MG/DL (0.55-1.02); GLOMERULAR FILTRATION RATE > 60.0 (>32); GLUCOSE, FASTING 129 MG/DL (83-110); MAGNESIUM LEVEL 2.1 MG/DL (1.8-2.4); POTASSIUM SERUM 4.2 MEQ/L (3.5-5.1); SODIUM LEVEL 140 MEQ/L (136-145)
[2017-02-10] MEDS: ALBUTEROL SULFATE 2.5 MG/0.5 ML INH NEB SOLN INH SCH ×2 (07:54→19:53)
[2017-02-10] MEDS: CYANOCOBALAMIN 500 MCG TAB PO SCH (08:53)
[2017-02-10] MEDS: SPIRONOLACTONE 25 MG TAB PO SCH (08:54)
[2017-02-10] MEDS: METOPROLOL TART 50 MG TAB PO SCH ×2 (08:54→21:04)
[2017-02-10] MEDS: FUROSEMIDE 20 MG TAB PO SCH (08:54)
[2017-02-10] MEDS: PREGABALIN 100 MG CAP (LYRICA) PO SCH ×3 (08:54→21:03)
[2017-02-10] MEDS: FERROUS SULFATE 325MG TAB PO SCH (08:55)
[2017-02-10] MEDS: ULTRACET TAB PO PRN ×2 (08:55→17:06)
[2017-02-10] MEDS: POLYVINYL ALCOHOL OPHTH SOLN 15 ML(LIQUITEARS) OU SCH ×2 (08:56→21:04)
[2017-02-10] MEDS: HumaLOG INSULIN (NovoLOG) PER UNIT SC SCH ×4 (08:56→21:00)
[2017-02-10] MEDS: ANALGESIC BALM CRM 120 GM TOP SCH ×3 (08:56→21:05)
[2017-02-10] MEDS: MUPIROCIN 2% CREAM 30GM TOP SCH ×3 (08:57→21:06)
[2017-02-10] MEDS: MULTIVITAMINS/MINERALS THERAP 1 TAB PO SCH (08:58)
[2017-02-10] MEDS: NYSTATIN 100,000 UNITS/GM TOPICAL PWD 15 GM TOP SCH ×2 (09:00→21:05)
[2017-02-10 14:00] VITALS: BP 129/61
--- NOTE | 2017-02-10 18:17 | IPNPDOC ---
Text Note Date of Service The patient was seen on 02/10/17. NOTE Subjective: Patient is an 86 year old female with a PMHx of Spinal stenosis, Colon CA s/p R hemicolectomy, GI bleed in past, Paroxysmal Atrial fibrillation ( on Xarelto), who presented to the ER with intractable back pain and bilateral leg pain. She was noted to have rectal bleeding as well. Patient was admitted to medical surgical floor and had serial Hg checked. Patient was seen and examined at the bedside. She denies any further bleeding from her rectum. Objective: Vitals (See below) General: Lying in bed, no acute distress, comfortable, AAOx3 HEENT: NC, AT CVS: RRR, +S1S2 Lungs: Fair air entry b/l, -w/r/r Abdomen: Soft, ND, NT, +BSx4 Extremities: - Edema, - Calf tenderness Assessment and plan: 1. Intractable back pain associated with leg pain and neuropathy - Difficulty with ambulation - c/w Physical therapy - Gait dysfunction noted 2. Neuropathy and spinal stenosis 3. UTI - UA consistent with infection - Urine culture 02/05: klebsiella oxytoca - s/p Ceftriaxone (Completed 5 days of antibiotics; competed 02/10) 5. Adenocarcinoma of the colon - s/p Laparoscopy and R hemicolectomy 08/2016 - Colonoscopy and EGD done on 09/03 - CT continue to follow and replete as needed 6. Hypothyroidism - c/w Levothyroxine 7. HTN - c/w Furoside, Metoprolol and Spironolactone 8. COD - no evidence of exacerbation - c/w DuoNeb PRN 9. GERD - c/w omeprazole 10. DVT prophylaxis -c/w SCDs Code status: - DNR/DNI VS,Fishbone, I+O VS, Fishbone, I+O Laboratory Tests 02/10/17 06:32 Red Blood Count 3.78 L, Mean Corpuscular Volume 90.4, Mean Corpuscular Hemoglobin 28.4, Mean Corpuscular Hemoglobin Concent 31.5 L, Red Cell Distribution Width 14.4, Neutrophils (%) (Auto) 48.3, Lymphocytes (%) (Auto) 33.1, Monocytes (%) (Auto) 9.4 H, Eosinophils (%) (Auto) 3.7 H, Basophils (%) ( Auto) 0.9, Neutrophils # (Auto) 2.8, Lymphocytes # (Auto) 2.2, Monocytes # (Auto ) 0.5, Eosinophils # (Auto) 0.2, Basophils # (Auto) 0.0, Calcium Level 8.7 L Vital Signs Date Time Temp Pulse Resp B/P (MAP) Pulse Ox O2 Delivery O2 Flow Rate FiO2 02/10/17 17:06 18 02/10/17 08:54 71 147/63 02/10/17 06:00 98.4 96 Room Air 02/08/17 06:00 1.0 I&O- Last 24 Hours up to 6 AM 02/10/17 06:00 Intake Total 200 ml Output Total 600 ml Balance -400 ml ELISSA BAUER MD Feb 10, 2017 18:17
[2017-02-10] MEDS: LORATADINE 10 MG TAB PO SCH (21:03)
[2017-02-10] MEDS: PANTOPRAZOLE 40MG INJ (PROTONIX) (C9113) IV SCH (21:04)
[2017-02-10 22:00] VITALS: BP 129/62
[2017-02-11] MEDS: ULTRACET TAB PO PRN ×3 (04:26→21:28)
[2017-02-11] MEDS: ALBUTEROL SULFATE 2.5 MG/0.5 ML INH NEB SOLN INH PRN (04:36)
[2017-02-11] MEDS: LEVOTHYROXINE 88MCG TABLET (0.088 MG) PO SCH (05:45)
[2017-02-11 06:00] VITALS: BP 139/75
[2017-02-11 06:05] VITALS: BP 130/64
[2017-02-11 06:10] VITALS: BP 132/58
[2017-02-11 07:12] LABS: BASO % 0.7 % (0.0-1.0); EOS # 0.3 K/mm3 (0.0-0.50); LARGE UNSTAINED CELL # 0.2 K/mm3 (0.0-0.4); LARGE UNSTAINED CELL % 3.9 % (0.0-4.0); LYMPH # 1.7 K/mm3 (1.5-4.5); LYMPH % 25.7 % (24.0-44.0); MEAN CORPUSCULAR HGB CONC 32.7 g/dl (32.0-36.5); MEAN CORPUSCULAR VOLUME 88.8 fl (80.0-96.0); MONO # 0.5 K/mm3 (0.0-0.8); NEUTROPHILS # 3.2 K/mm3 (1.8-7.7); NEUTROPHILS % 56.6 % (36.0-66.0); PLATELET COUNT, AUTOMATED 202 k/mm3 (150-450); RED CELL DISTRIBUTION WIDTH 14.3 % (11.5-14.5); WHITE BLOOD COUNT 5.6 K/mm3 (4.0-10.0)
[2017-02-11 07:31] LABS: ANION GAP 4 MEQ/L (8-16); BLOOD UREA NITROGEN 30 MG/DL (7-18); CALCIUM LEVEL 8.8 MG/DL (8.8-10.2); CARBON DIOXIDE LEVEL 34 MEQ/L (21-32); CHLORIDE LEVEL 100 MEQ/L (98-107); CREATININE FOR GFR 0.93 MG/DL (0.55-1.02); GLOMERULAR FILTRATION RATE > 60.0 (>32); GLUCOSE, FASTING 155 MG/DL (83-110); MAGNESIUM LEVEL 1.7 MG/DL (1.8-2.4); POTASSIUM SERUM 4.3 MEQ/L (3.5-5.1); SODIUM LEVEL 138 MEQ/L (136-145)
[2017-02-11] MEDS: ALBUTEROL SULFATE 2.5 MG/0.5 ML INH NEB SOLN INH SCH ×2 (07:31→19:12)
[2017-02-11] MEDS ORDERED: MAG SULF 1GM/100ML (MAG RUN) 1 GM in APPROPRIATE DILUENT 1 EA IV ONE (07:45)
[2017-02-11] MEDS: HumaLOG INSULIN (NovoLOG) PER UNIT SC SCH ×4 (08:38→21:00)
[2017-02-11] MEDS: FUROSEMIDE 20 MG TAB PO SCH (08:39)
[2017-02-11] MEDS: CYANOCOBALAMIN 500 MCG TAB PO SCH (08:39)
[2017-02-11] MEDS: MUPIROCIN 2% CREAM 30GM TOP SCH ×3 (08:39→21:24)
[2017-02-11] MEDS: SPIRONOLACTONE 25 MG TAB PO SCH (08:39)
[2017-02-11] MEDS: ANALGESIC BALM CRM 120 GM TOP SCH ×3 (08:40→21:24)
[2017-02-11] MEDS: PREGABALIN 100 MG CAP (LYRICA) PO SCH ×3 (08:40→21:25)
[2017-02-11] MEDS: POLYVINYL ALCOHOL OPHTH SOLN 15 ML(LIQUITEARS) OU SCH ×2 (08:40→21:23)
[2017-02-11] MEDS: FERROUS SULFATE 325MG TAB PO SCH (08:40)
[2017-02-11] MEDS: METOPROLOL TART 50 MG TAB PO SCH ×2 (08:40→21:26)
[2017-02-11] MEDS: MULTIVITAMINS/MINERALS THERAP 1 TAB PO SCH (08:40)
[2017-02-11] MEDS: NYSTATIN 100,000 UNITS/GM TOPICAL PWD 15 GM TOP SCH ×2 (08:41→21:25)
--- NOTE | 2017-02-11 08:50 | REP ---
Portable chest, single AP view, the patient upright, 08:20 a.m.: Comparisons 09/17/2016. There is no evidence of vascular engorgement or pulmonary edema. No pleural effusions. Cardiac size is enlarged, unchanged. The koko, mediastinum, and bony thorax are unremarkable. Impression: Cardiomegaly. No evidence of vascular engorgement or pulmonary edema. Signed by Guanaco Mccurdy MD 02/11/2017 08:41 A
[2017-02-11 14:00] VITALS: BP 142/67
--- NOTE | 2017-02-11 15:37 | IPNPDOC ---
Text Note Date of Service The patient was seen on 02/11/17. NOTE Subjective: Patient is an 86 year old female with a PMHx of Spinal stenosis, Colon CA s/p R hemicolectomy, GI bleed in past, Paroxysmal Atrial fibrillation ( on Xarelto), who presented to the ER with intractable back pain and bilateral leg pain. She was noted to have rectal bleeding as well. Patient was admitted to medical surgical floor and had serial Hg checked. Patient was seen and examined at the bedside. She denies any problems overnight. Reports no significant leg / back pain. Objective: Vitals (See below) General: Lying in bed, no acute distress, comfortable, AAOx3 HEENT: NC, AT CVS: RRR, +S1S2 Lungs: Fair air entry b/l, -w/r/r Abdomen: Soft, ND, NT, +BSx4 Extremities: - Edema, - Calf tenderness Assessment and plan: 1. Intractable back pain associated with leg pain and neuropathy - Difficulty with ambulation - c/w Physical therapy; will need to continue to work with them - Gait dysfunction noted 2. Neuropathy and spinal stenosis 3. UTI - UA consistent with infection - Urine culture 02/05: klebsiella oxytoca - s/p Ceftriaxone (Completed 5 days of antibiotics; competed 02/10) 5. Adenocarcinoma of the colon - s/p Laparoscopy and R hemicolectomy 08/2016 - Colonoscopy and EGD done on 09/03 - CT continue to follow and replete as needed 6. Hypothyroidism - c/w Levothyroxine 7. HTN - c/w Furoside, Metoprolol and Spironolactone 8. COD - no evidence of exacerbation - c/w DuoNeb PRN 9. GERD - c/w omeprazole 10. DVT prophylaxis -c/w SCDs Code status: - DNR/DNI Disposition: - Looking in to placement options; assisted level VS,Alex, I+O VS, Alex, I+O Laboratory Tests 02/11/17 06:27 Red Blood Count 3.38 L, Mean Corpuscular Volume 88.8, Mean Corpuscular Hemoglobin 29.0, Mean Corpuscular Hemoglobin Concent 32.7, Red Cell Distribution Width 14.3, Neutrophils (%) (Auto) 56.6, Lymphocytes (%) (Auto) 25.7, Monocytes (%) (Auto) 8.0 H, Eosinophils (%) (Auto) 5.0 H, Basophils (%) ( Auto) 0.7, Neutrophils # (Auto) 3.2, Lymphocytes # (Auto) 1.7, Monocytes # (Auto ) 0.5, Eosinophils # (Auto) 0.3, Basophils # (Auto) 0.0, Calcium Level 8.8 Vital Signs Date Time Temp Pulse Resp B/P (MAP) Pulse Ox O2 Delivery O2 Flow Rate FiO2 02/11/17 13:30 18 02/11/17 08:40 52 132/58 02/11/17 06:00 97.8 94 Nasal Cannula 2.0 I&O- Last 24 Hours up to 6 AM 02/11/17 06:00 Intake Total 80 ml Output Total 500 ml Balance -420 ml ELISSA BAUER MD Feb 11, 2017 15:37
[2017-02-11] MEDS ORDERED: TRAM37.53 PO (16:20)
[2017-02-11] MEDS: MOM 30ML SUSPENSION UDC PO PRN (18:34)
[2017-02-11] MEDS: PANTOPRAZOLE 40MG INJ (PROTONIX) (C9113) IV SCH (21:23)
[2017-02-11] MEDS: LORATADINE 10 MG TAB PO SCH (21:25)
[2017-02-11 22:00] VITALS: BP 112/62
[2017-02-12] MEDS: LEVOTHYROXINE 88MCG TABLET (0.088 MG) PO SCH (05:48)
[2017-02-12] MEDS: ULTRACET TAB PO PRN ×2 (05:49→17:57)
[2017-02-12 06:00] VITALS: BP 160/70
[2017-02-12 06:05] VITALS: BP 154/80
[2017-02-12 06:10] VITALS: BP 152/72
[2017-02-12] MEDS: HumaLOG INSULIN (NovoLOG) PER UNIT SC SCH ×4 (07:30→22:23)
[2017-02-12] MEDS: ALBUTEROL SULFATE 2.5 MG/0.5 ML INH NEB SOLN INH SCH ×2 (07:38→21:00)
[2017-02-12] MEDS ORDERED: MAG SULF 1GM/100ML (MAG RUN) 1 GM in APPROPRIATE DILUENT 1 EA IV ONE (08:00)
[2017-02-12 08:02] LABS: BASO % 0.6 % (0.0-1.0); EOS # 0.2 K/mm3 (0.0-0.50); LARGE UNSTAINED CELL # 0.3 K/mm3 (0.0-0.4); LARGE UNSTAINED CELL % 4.9 % (0.0-4.0); LYMPH # 1.6 K/mm3 (1.5-4.5); LYMPH % 25.4 % (24.0-44.0); MEAN CORPUSCULAR HEMOGLOBIN 29.4 pg (27.0-33.0); MEAN CORPUSCULAR HGB CONC 33.1 g/dl (32.0-36.5); MEAN CORPUSCULAR VOLUME 88.9 fl (80.0-96.0); MONO # 0.5 K/mm3 (0.0-0.8); MONO % 7.5 % (0.0-5.0); NEUTROPHILS # 3.6 K/mm3 (1.8-7.7); NEUTROPHILS % 57.7 % (36.0-66.0); PLATELET COUNT, AUTOMATED 232 k/mm3 (150-450); WHITE BLOOD COUNT 6.3 K/mm3 (4.0-10.0)
[2017-02-12] MEDS ORDERED: PRED10TA2 PO (08:31)
[2017-02-12] MEDS: ADVAIR HFA 115/21MCG INHALER INH SCH ×2 (09:00→23:39)
[2017-02-12] MEDS: ANALGESIC BALM CRM 120 GM TOP SCH ×3 (09:00→22:24)
[2017-02-12] MEDS: NYSTATIN 100,000 UNITS/GM TOPICAL PWD 15 GM TOP SCH ×2 (09:00→22:23)
[2017-02-12] MEDS: PANTOPRAZOLE 40MG TAB (PROTONIX) PO SCH (09:00)
[2017-02-12] MEDS: predniSONE 20 MG TAB PO SCH ×2 (09:00→22:18)
[2017-02-12] MEDS: MOM 30ML SUSPENSION UDC PO PRN (09:06)
[2017-02-12] MEDS: FERROUS SULFATE 325MG TAB PO SCH (09:07)
[2017-02-12] MEDS: FUROSEMIDE 20 MG TAB PO SCH (09:07)
[2017-02-12] MEDS: PREGABALIN 100 MG CAP (LYRICA) PO SCH ×3 (09:07→22:21)
[2017-02-12] MEDS: METOPROLOL TART 50 MG TAB PO SCH ×2 (09:08→22:19)
[2017-02-12] MEDS: MULTIVITAMINS/MINERALS THERAP 1 TAB PO SCH (09:08)
[2017-02-12] MEDS: SPIRONOLACTONE 25 MG TAB PO SCH (09:09)
[2017-02-12] MEDS: CYANOCOBALAMIN 500 MCG TAB PO SCH (09:10)
[2017-02-12] MEDS: MUPIROCIN 2% CREAM 30GM TOP SCH ×3 (09:11→22:25)
[2017-02-12] MEDS: POLYVINYL ALCOHOL OPHTH SOLN 15 ML(LIQUITEARS) OU SCH ×2 (09:13→22:25)
[2017-02-12 09:15] LABS: ALBUMIN 3.1 GM/DL (3.2-5.2); ALBUMIN/GLOBULIN RATIO 0.79 (1.00-1.93); BILIRUBIN,TOTAL 0.2 MG/DL (0.2-1.0); CALCIUM LEVEL 8.9 MG/DL (8.8-10.2); CREATININE FOR GFR 0.98 MG/DL (0.55-1.02); MAGNESIUM LEVEL 2.3 MG/DL (1.8-2.4); POTASSIUM SERUM 4.6 MEQ/L (3.5-5.1)
--- NOTE | 2017-02-12 13:30 | IPNPDOC ---
Text Note Date of Service The patient was seen on 02/12/17. NOTE Subjective: Patient is an 86 year old female with a PMHx of Spinal stenosis, Colon CA s/p R hemicolectomy, GI bleed in past, Paroxysmal Atrial fibrillation ( on Xarelto), who presented to the ER with intractable back pain and bilateral leg pain. She was noted to have rectal bleeding as well. Patient was admitted to medical surgical floor and had serial Hg checked. Patient was seen and examined at the bedside. She currently does not report any problems overnight. She notes that has some mild leg and back pain, but has improved. Nursing staff has notified me that her weight has gone up by ~4kg. Will cancel discharge and evaluate for possible fluid overload. Objective: Vitals (See below) General: Lying in bed, no acute distress, comfortable, AAOx3 HEENT: NC, AT CVS: RRR, +S1S2 Lungs: Fair air entry b/l, Course lungs sounds b/l, +wheezing Abdomen: Soft, ND, NT, +BSx4 Extremities: No appreciable edema, - Calf tenderness Assessment and plan: 1. Acute hypoxic respiratory failure - likely 2/2 fluid overload, possibly 2/2 COPD exacerbation - Is requiring supplemental oxygen; does not use oxygen at baseline - Off of nasal canula her oxygenation has dropped to 88 - Has been noted to have a weight gain of 4 kg; however reliability of scale in question - Physical with bilateral wheezing on physical exam - BNP will be checked - CXR 02/10: without evidence of vascular engorgement or pulmonary edema - Will start prednisone 40 BID today; will taper with improvement - Will give additional dose of Lasix 60mg this evening - c/w Duoneb and will add Advair 2. s/p Intractable back pain associated with leg pain and neuropathy - Difficulty with ambulation - c/w Physical therapy; will need to continue to work with them - Gait dysfunction noted 3. Neuropathy and spinal stenosis 4. UTI - UA consistent with infection - Urine culture 02/05: klebsiella oxytoca - s/p Ceftriaxone (Completed 5 days of antibiotics; competed 02/10) 5. Adenocarcinoma of the colon - s/p Laparoscopy and R hemicolectomy 08/2016 - Colonoscopy and EGD done on 09/03 - CT continue to follow and replete as needed 6. Hypothyroidism - c/w Levothyroxine 7. HTN - c/w Furoside, Metoprolol and Spironolactone 8. GERD - c/w omeprazole 9. DVT prophylaxis -c/w SCDs Code status: - DNR/DNI Disposition: - Will increase diuresis - Will add prednisone and Advair - Looking in to placement options; alf level VS,Fishbone, I+O VS, Fishbone, I+O Laboratory Tests 02/12/17 07:46 Red Blood Count 3.66 L, Mean Corpuscular Volume 88.9, Mean Corpuscular Hemoglobin 29.4, Mean Corpuscular Hemoglobin Concent 33.1, Red Cell Distribution Width 14.0, Neutrophils (%) (Auto) 57.7, Lymphocytes (%) (Auto) 25.4, Monocytes (%) (Auto) 7.5 H, Eosinophils (%) (Auto) 4.0 H, Basophils (%) ( Auto) 0.6, Neutrophils # (Auto) 3.6, Lymphocytes # (Auto) 1.6, Monocytes # (Auto ) 0.5, Eosinophils # (Auto) 0.2, Basophils # (Auto) 0.0, Calcium Level 8.9, Aspartate Amino Transf (AST/SGOT) 13 L, Alanine Aminotransferase (ALT/SGPT) 14, Alkaline Phosphatase 36 L, Total Bilirubin 0.2, Total Protein 7.0, Albumin 3.1 L Vital Signs Date Time Temp Pulse Resp B/P (MAP) Pulse Ox O2 Delivery O2 Flow Rate FiO2 02/12/17 09:08 84 152/72 02/12/17 09:00 Nasal Cannula 2.0 02/12/17 06:19 17 02/12/17 06:00 97.5 95 I&O- Last 24 Hours up to 6 AM 02/12/17 05:59 Intake Total 1020 ml Output Total 2250 ml Balance -1230 ml ELISSA BAUER MD Feb 12, 2017 13:30
[2017-02-12 14:00] VITALS: BP 140/70
[2017-02-12] MEDS ORDERED: FUROSEMIDE 20 MG TAB PO SCH (21:00)
[2017-02-12 22:00] VITALS: BP 126/57
[2017-02-12] MEDS: LORATADINE 10 MG TAB PO SCH (22:19)
[2017-02-13 06:00] VITALS: BP 150/67
[2017-02-13] MEDS: LEVOTHYROXINE 88MCG TABLET (0.088 MG) PO SCH (06:19)
[2017-02-13] MEDS: ULTRACET TAB PO PRN ×2 (06:20→16:23)
[2017-02-13 07:06] LABS: ALBUMIN 3.1 GM/DL (3.2-5.2); ALBUMIN/GLOBULIN RATIO 0.72 (1.00-1.93); BILIRUBIN,TOTAL 0.2 MG/DL (0.2-1.0); CALCIUM LEVEL 8.9 MG/DL (8.8-10.2); CREATININE FOR GFR 1.19 MG/DL (0.55-1.02); GLOMERULAR FILTRATION RATE 45.6 (>32); MAGNESIUM LEVEL 2.4 MG/DL (1.8-2.4); POTASSIUM SERUM 4.7 MEQ/L (3.5-5.1); TOTAL PROTEIN 7.4 GM/DL (6.4-8.2)
[2017-02-13 07:46] LABS: BASO % 0.2 % (0.0-1.0); EOS % 0.1 % (0.0-3.0); LARGE UNSTAINED CELL # 0.1 K/mm3 (0.0-0.4); LARGE UNSTAINED CELL % 0.6 % (0.0-4.0); LYMPH # 1.3 K/mm3 (1.5-4.5); LYMPH % 12.9 % (24.0-44.0); MEAN CORPUSCULAR HEMOGLOBIN 29.1 pg (27.0-33.0); MEAN CORPUSCULAR HGB CONC 32.9 g/dl (32.0-36.5); MEAN CORPUSCULAR VOLUME 88.5 fl (80.0-96.0); MONO # 0.2 K/mm3 (0.0-0.8); NEUTROPHILS # 7.8 K/mm3 (1.8-7.7); NEUTROPHILS % 84.1 % (36.0-66.0); PLATELET COUNT, AUTOMATED 249 k/mm3 (150-450); WHITE BLOOD COUNT 9.3 K/mm3 (4.0-10.0)
[2017-02-13] MEDS: ADVAIR HFA 115/21MCG INHALER INH SCH ×2 (08:09→19:52)
[2017-02-13] MEDS: ALBUTEROL SULFATE 2.5 MG/0.5 ML INH NEB SOLN INH SCH ×2 (08:13→19:52)
[2017-02-13] MEDS: HumaLOG INSULIN (NovoLOG) PER UNIT SC SCH ×4 (08:16→23:12)
[2017-02-13] MEDS: predniSONE 20 MG TAB PO SCH ×2 (08:17→23:13)
[2017-02-13] MEDS: FERROUS SULFATE 325MG TAB PO SCH (08:17)
[2017-02-13] MEDS: FUROSEMIDE 20 MG TAB PO SCH (08:17)
[2017-02-13] MEDS: CYANOCOBALAMIN 500 MCG TAB PO SCH (08:17)
[2017-02-13] MEDS: PREGABALIN 100 MG CAP (LYRICA) PO SCH ×3 (08:18→23:13)
[2017-02-13] MEDS: METOPROLOL TART 50 MG TAB PO SCH ×2 (08:18→23:13)
[2017-02-13] MEDS: PANTOPRAZOLE 40MG TAB (PROTONIX) PO SCH (08:18)
[2017-02-13] MEDS: MULTIVITAMINS/MINERALS THERAP 1 TAB PO SCH (08:18)
[2017-02-13] MEDS: SPIRONOLACTONE 25 MG TAB PO SCH (08:18)
[2017-02-13] MEDS: POLYVINYL ALCOHOL OPHTH SOLN 15 ML(LIQUITEARS) OU SCH ×2 (08:19→23:11)
[2017-02-13] MEDS: NYSTATIN 100,000 UNITS/GM TOPICAL PWD 15 GM TOP SCH ×2 (08:19→23:12)
[2017-02-13] MEDS: MUPIROCIN 2% CREAM 30GM TOP SCH ×3 (08:22→23:11)
[2017-02-13] MEDS: ANALGESIC BALM CRM 120 GM TOP SCH ×3 (08:22→23:11)
--- NOTE | 2017-02-13 12:11 | IPNPDOC ---
Text Note Date of Service The patient was seen on 02/13/17. NOTE Subjective: Patient is an 86 year old female with a PMHx of Spinal stenosis, Colon CA s/p R hemicolectomy, GI bleed in past, Paroxysmal Atrial fibrillation ( on Xarelto), who presented to the ER with intractable back pain and bilateral leg pain. She was noted to have rectal bleeding as well. Patient was admitted to medical surgical floor and had serial Hg checked. Patient was seen and examined at the bedside. Patient was sitting up in chair eating her breakfast. She denies any problems. Objective: Vitals (See below) General: Lying in bed, no acute distress, comfortable, AAOx3 HEENT: NC, AT CVS: RRR, +S1S2 Lungs: Fair air entry b/l, no appreciable wheezing / crackles / rhonchi Abdomen: Soft, ND, NT, +BSx4 Extremities: No appreciable edema, - Calf tenderness Assessment and plan: 1. Acute hypoxic respiratory failure - possibly 2/2 COPD exacerbation, less likely 2/2 fluid overload - Requires supplemental oxygen; does not use oxygen at baseline; conversational dyspnea while off oxygen initially - Off of nasal canula her saturation this morning was at 90-91% - Has been noted to have a weight gain of 4 kg; however reliability of scale in question - Physical with improved aeration - BNP mildly elevated - CXR 02/10: without evidence of vascular engorgement or pulmonary edema - c/w Prednisone 40 BID today; will taper with improvement - Will return to standard dose of Lasix - c/w Duoneb and will add Advair 2. s/p Intractable back pain associated with leg pain and neuropathy - Difficulty with ambulation - c/w Physical therapy; will need to continue to work with them - Gait dysfunction noted 3. Neuropathy and spinal stenosis 4. UTI - UA consistent with infection - Urine culture 02/05: klebsiella oxytoca - s/p Ceftriaxone (Completed 5 days of antibiotics; competed 02/10) 5. Adenocarcinoma of the colon - s/p Laparoscopy and R hemicolectomy 08/2016 - Colonoscopy and EGD done on 09/03 - CT continue to follow and replete as needed 6. Hypothyroidism - c/w Levothyroxine 7. HTN - c/w Furoside, Metoprolol and Spironolactone 8. GERD - c/w omeprazole 9. DVT prophylaxis -c/w SCDs Code status: - DNR/DNI Disposition: - c/w prednisone and Advair - Taper off oxygen; to be to baseline - Looking in to placement options; alf level VS,Fishbone, I+O VS, Fishbone, I+O Laboratory Tests 02/13/17 06:20 Red Blood Count 3.77 L, Mean Corpuscular Volume 88.5, Mean Corpuscular Hemoglobin 29.1, Mean Corpuscular Hemoglobin Concent 32.9, Red Cell Distribution Width 14.0, Neutrophils (%) (Auto) 84.1 H, Lymphocytes (%) (Auto) 12.9 L, Monocytes (%) (Auto) 2.0, Eosinophils (%) (Auto) 0.1, Basophils (%) ( Auto) 0.2, Neutrophils # (Auto) 7.8 H, Lymphocytes # (Auto) 1.3 L, Monocytes # ( Auto) 0.2, Eosinophils # (Auto) 0.0, Basophils # (Auto) 0.0, Calcium Level 8.9, Aspartate Amino Transf (AST/SGOT) 13 L, Alanine Aminotransferase (ALT/SGPT) 15, Alkaline Phosphatase 40 L, Total Bilirubin 0.2, Total Protein 7.4, Albumin 3.1 L Vital Signs Date Time Temp Pulse Resp B/P (MAP) Pulse Ox O2 Delivery O2 Flow Rate FiO2 02/13/17 08:18 72 150/67 02/13/17 07:15 18 02/13/17 06:00 97.4 94 Nasal Cannula 3.0 I&O- Last 24 Hours up to 6 AM 02/13/17 06:00 Intake Total 1680 ml Output Total 1950 ml Balance -270 ml ELISSA BAUER MD Feb 13, 2017 12:11
[2017-02-13 22:00] VITALS: BP 164/73
[2017-02-13] MEDS: LORATADINE 10 MG TAB PO SCH (23:13)
[2017-02-14] MEDS: LEVOTHYROXINE 88MCG TABLET (0.088 MG) PO SCH (05:26)
[2017-02-14] MEDS: ULTRACET TAB PO PRN ×2 (05:26→20:14)
[2017-02-14 06:00] VITALS: BP 144/64
[2017-02-14 07:09] LABS: BASO % 0.1 % (0.0-1.0); EOS % 0.1 % (0.0-3.0); LARGE UNSTAINED CELL # 0.1 K/mm3 (0.0-0.4); LARGE UNSTAINED CELL % 0.9 % (0.0-4.0); LYMPH % 7.6 % (24.0-44.0); MEAN CORPUSCULAR HEMOGLOBIN 28.9 pg (27.0-33.0); MEAN CORPUSCULAR HGB CONC 32.7 g/dl (32.0-36.5); MEAN CORPUSCULAR VOLUME 88.2 fl (80.0-96.0); MONO # 0.4 K/mm3 (0.0-0.8); MONO % 3.3 % (0.0-5.0); NEUTROPHILS # 10.9 K/mm3 (1.8-7.7); PLATELET COUNT, AUTOMATED 265 k/mm3 (150-450); RED CELL DISTRIBUTION WIDTH 13.9 % (11.5-14.5); WHITE BLOOD COUNT 12.4 K/mm3 (4.0-10.0)
[2017-02-14 07:32] LABS: ALBUMIN 3.2 GM/DL (3.2-5.2); ALBUMIN/GLOBULIN RATIO 0.8 (1.00-1.93); BILIRUBIN,TOTAL 0.2 MG/DL (0.2-1.0); CALCIUM LEVEL 8.9 MG/DL (8.8-10.2); CREATININE FOR GFR 1.04 MG/DL (0.55-1.02); GLOMERULAR FILTRATION RATE 53.2 (>32); MAGNESIUM LEVEL 2.4 MG/DL (1.8-2.4); POTASSIUM SERUM 4.4 MEQ/L (3.5-5.1); TOTAL PROTEIN 7.2 GM/DL (6.4-8.2)
[2017-02-14] MEDS: ADVAIR HFA 115/21MCG INHALER INH SCH ×2 (07:58→21:00)
[2017-02-14] MEDS: ALBUTEROL SULFATE 2.5 MG/0.5 ML INH NEB SOLN INH SCH ×2 (07:58→19:37)
[2017-02-14] MEDS: POLYVINYL ALCOHOL OPHTH SOLN 15 ML(LIQUITEARS) OU SCH ×2 (08:06→20:15)
[2017-02-14] MEDS: HumaLOG INSULIN (NovoLOG) PER UNIT SC SCH ×4 (08:06→20:16)
[2017-02-14] MEDS: SPIRONOLACTONE 25 MG TAB PO SCH (08:07)
[2017-02-14] MEDS: CYANOCOBALAMIN 500 MCG TAB PO SCH (08:07)
[2017-02-14] MEDS: PANTOPRAZOLE 40MG TAB (PROTONIX) PO SCH (08:07)
[2017-02-14] MEDS: FUROSEMIDE 20 MG TAB PO SCH (08:07)
[2017-02-14] MEDS: METOPROLOL TART 50 MG TAB PO SCH ×2 (08:08→20:14)
[2017-02-14] MEDS: predniSONE 20 MG TAB PO SCH ×2 (08:08→20:12)
[2017-02-14] MEDS: PREGABALIN 100 MG CAP (LYRICA) PO SCH ×3 (08:08→20:12)
[2017-02-14] MEDS: FERROUS SULFATE 325MG TAB PO SCH (08:08)
[2017-02-14] MEDS: MULTIVITAMINS/MINERALS THERAP 1 TAB PO SCH (08:08)
[2017-02-14] MEDS: MUPIROCIN 2% CREAM 30GM TOP SCH ×3 (08:09→20:16)
[2017-02-14] MEDS: ANALGESIC BALM CRM 120 GM TOP SCH ×3 (08:09→20:16)
[2017-02-14] MEDS: NYSTATIN 100,000 UNITS/GM TOPICAL PWD 15 GM TOP SCH ×2 (08:10→20:16)
--- NOTE | 2017-02-14 11:06 | IPNPDOC ---
Text Note Date of Service The patient was seen on 02/14/17. NOTE Subjective: Patient is an 86 year old female with a PMHx of Spinal stenosis, Colon CA s/p R hemicolectomy, GI bleed in past, Paroxysmal Atrial fibrillation ( on Xarelto), who presented to the ER with intractable back pain and bilateral leg pain. She was noted to have rectal bleeding as well. Patient was admitted to medical surgical floor and had serial Hg checked. Patient was seen and examined at the bedside. Her daughter was present at the bedside as well. She has not had any events overnight. No new complaints this morning. Objective: Vitals (See below) General: Lying in bed, no acute distress, comfortable, AAOx3 HEENT: NC, AT CVS: RRR, +S1S2 Lungs: Fair air entry b/l, b/l wheezing appreciated Abdomen: Soft, ND, NT, +BSx4 Extremities: No appreciable edema, - Calf tenderness Assessment and plan: 1. s/p Acute hypoxic respiratory failure - possibly 2/2 acute COPD exacerbation , less likely 2/2 fluid overload - No longer requires supplemental oxygen; does not use oxygen at baseline; conversational dyspnea while off oxygen that occurred initially has resolved - Physical this morning revealed b/l wheezing - BNP mildly elevated - CXR 02/10: without evidence of vascular engorgement or pulmonary edema - c/w home dose of Lasix - c/w Duoneb and Advair - c/w Prednisone 40 BID; will taper tomorrow if breathing shows improvement 2. s/p Intractable back pain associated with leg pain and neuropathy - Difficulty with ambulation and gait dysfunction - c/w Physical therapy 3. Neuropathy and spinal stenosis 4. UTI - UA consistent with infection - Urine culture 02/05: klebsiella oxytoca - s/p Ceftriaxone (Completed 5 days of antibiotics; competed 02/10) 5. Adenocarcinoma of the colon - s/p Laparoscopy and R hemicolectomy 08/2016 - Colonoscopy and EGD done on 09/03 - CT continue to follow and replete as needed 6. Hypothyroidism - c/w Levothyroxine 7. HTN - c/w Furoside, Metoprolol and Spironolactone 8. GERD - c/w omeprazole 9. DVT prophylaxis -c/w SCDs Code status: - DNR/DNI Disposition: - c/w Prednisone and Advair; will taper steroids with improvement in breathing - Will go to intermediate on Thursday; plan for discharge 02/16 VS,Alex, I+O VS, Alex, I+O Laboratory Tests 02/14/17 06:48 Red Blood Count 3.64 L, Mean Corpuscular Volume 88.2, Mean Corpuscular Hemoglobin 28.9, Mean Corpuscular Hemoglobin Concent 32.7, Red Cell Distribution Width 13.9, Neutrophils (%) (Auto) 88.0 H, Lymphocytes (%) (Auto) 7.6 L, Monocytes (%) (Auto) 3.3, Eosinophils (%) (Auto) 0.1, Basophils (%) (Auto ) 0.1, Neutrophils # (Auto) 10.9 H, Lymphocytes # (Auto) 1.0 L, Monocytes # ( Auto) 0.4, Eosinophils # (Auto) 0.0, Basophils # (Auto) 0.0, Calcium Level 8.9, Aspartate Amino Transf (AST/SGOT) 8 L, Alanine Aminotransferase (ALT/SGPT) 15, Alkaline Phosphatase 40 L, Total Bilirubin 0.2, Total Protein 7.2, Albumin 3.2 Vital Signs Date Time Temp Pulse Resp B/P (MAP) Pulse Ox O2 Delivery O2 Flow Rate FiO2 02/14/17 08:08 60 144/64 02/14/17 06:00 97.2 20 92 Room Air 02/13/17 06:00 3.0 I&O- Last 24 Hours up to 6 AM 02/14/17 06:00 Intake Total 0 ml Output Total 1400 ml Balance -1400 ml ELISSA BAUER MD Feb 14, 2017 11:06
[2017-02-14] MEDS: LORATADINE 10 MG TAB PO SCH (20:14)
[2017-02-14 22:00] VITALS: BP 139/64
[2017-02-15] MEDS: LEVOTHYROXINE 88MCG TABLET (0.088 MG) PO SCH (05:19)
[2017-02-15 06:00] VITALS: BP 147/66
[2017-02-15 06:05] VITALS: BP 140/52
[2017-02-15 06:10] VITALS: BP 142/54
[2017-02-15 06:59] LABS: BASO % 0.1 % (0.0-1.0); EOS % 0.2 % (0.0-3.0); LARGE UNSTAINED CELL # 0.1 K/mm3 (0.0-0.4); LARGE UNSTAINED CELL % 0.7 % (0.0-4.0); LYMPH # 1.2 K/mm3 (1.5-4.5); LYMPH % 8.3 % (24.0-44.0); MEAN CORPUSCULAR HEMOGLOBIN 29.1 pg (27.0-33.0); MONO # 0.5 K/mm3 (0.0-0.8); NEUTROPHILS # 11.3 K/mm3 (1.8-7.7); NEUTROPHILS % 86.7 % (36.0-66.0); PLATELET COUNT, AUTOMATED 251 k/mm3 (150-450); RED CELL DISTRIBUTION WIDTH 14.2 % (11.5-14.5)
[2017-02-15 07:11] LABS: ALBUMIN/GLOBULIN RATIO 0.79 (1.00-1.93); BILIRUBIN,TOTAL 0.1 MG/DL (0.2-1.0); CALCIUM LEVEL 8.5 MG/DL (8.8-10.2); CREATININE FOR GFR 1.07 MG/DL (0.55-1.02); GLOMERULAR FILTRATION RATE 51.5 (>32); MAGNESIUM LEVEL 2.1 MG/DL (1.8-2.4); POTASSIUM SERUM 4.3 MEQ/L (3.5-5.1); TOTAL PROTEIN 6.8 GM/DL (6.4-8.2)
[2017-02-15] MEDS: HumaLOG INSULIN (NovoLOG) PER UNIT SC SCH ×4 (07:30→22:38)
[2017-02-15] MEDS: ALBUTEROL SULFATE 2.5 MG/0.5 ML INH NEB SOLN INH SCH ×2 (08:10→21:00)
[2017-02-15] MEDS: ADVAIR HFA 115/21MCG INHALER INH SCH ×2 (08:10→19:32)
[2017-02-15] MEDS: MUPIROCIN 2% CREAM 30GM TOP SCH ×3 (09:00→21:00)
[2017-02-15] MEDS: ANALGESIC BALM CRM 120 GM TOP SCH ×3 (09:00→21:00)
[2017-02-15] MEDS: POLYVINYL ALCOHOL OPHTH SOLN 15 ML(LIQUITEARS) OU SCH ×2 (09:00→22:39)
[2017-02-15] MEDS: PREGABALIN 100 MG CAP (LYRICA) PO SCH ×3 (09:39→22:41)
[2017-02-15] MEDS: predniSONE 20 MG TAB PO SCH (09:39)
[2017-02-15] MEDS: MULTIVITAMINS/MINERALS THERAP 1 TAB PO SCH (09:39)
[2017-02-15] MEDS: FUROSEMIDE 20 MG TAB PO SCH (09:40)
[2017-02-15] MEDS: PANTOPRAZOLE 40MG TAB (PROTONIX) PO SCH (09:40)
[2017-02-15] MEDS: FERROUS SULFATE 325MG TAB PO SCH (09:40)
[2017-02-15] MEDS: CYANOCOBALAMIN 500 MCG TAB PO SCH (09:40)
[2017-02-15] MEDS: SPIRONOLACTONE 25 MG TAB PO SCH (09:40)
[2017-02-15] MEDS: METOPROLOL TART 50 MG TAB PO SCH ×2 (09:41→22:42)
[2017-02-15] MEDS: NYSTATIN 100,000 UNITS/GM TOPICAL PWD 15 GM TOP SCH ×2 (09:45→22:38)
--- NOTE | 2017-02-15 13:17 | IPNPDOC ---
Text Note Date of Service The patient was seen on 02/15/17. NOTE Subjective: Patient is an 86 year old female with a PMHx of Spinal stenosis, Colon CA s/p R hemicolectomy, GI bleed in past, Paroxysmal Atrial fibrillation ( on Xarelto), who presented to the ER with intractable back pain and bilateral leg pain. She was noted to have rectal bleeding as well. Patient was admitted to medical surgical floor and had serial Hg checked. Patient was seen and examined at the bedside. She notes that she is ready to leave. She denies any chest pain, SOB, palpitations, or cough. Objective: Vitals (See below) General: Lying in bed, no acute distress, comfortable, AAOx3 HEENT: NC, AT CVS: RRR, +S1S2 Lungs: Fair air entry b/l, no appreciable wheezing Abdomen: Soft, ND, NT, +BSx4 Extremities: No appreciable edema, - Calf tenderness Assessment and plan: 1. s/p Acute hypoxic respiratory failure - possibly 2/2 acute COPD exacerbation , less likely 2/2 fluid overload - No longer requires supplemental oxygen; does not use oxygen at baseline; conversational dyspnea while off oxygen that occurred initially has resolved - Physical shows improvement in breathing - BNP mildly elevated - CXR 02/10: without evidence of vascular engorgement or pulmonary edema - c/w home dose of Lasix - c/w Duoneb and Advair - Will decrease prednisone dose to 30 BID 2. s/p Intractable back pain associated with leg pain and neuropathy - Difficulty with ambulation and gait dysfunction - c/w Physical therapy 3. Neuropathy and spinal stenosis 4. UTI - UA consistent with infection - Urine culture 02/05: Klebsiella oxytoca - s/p Ceftriaxone (Completed 5 days of antibiotics; competed 02/10) 5. Adenocarcinoma of the colon - s/p Laparoscopy and R hemicolectomy 08/2016 - Colonoscopy and EGD done on 09/03 - CT continue to follow and replete as needed 6. Hypothyroidism - c/w Levothyroxine 7. HTN - c/w Furoside, Metoprolol and Spironolactone 8. GERD - c/w omeprazole 9. DVT prophylaxis -c/w SCDs Code status: - DNR/DNI Disposition: - Plan for discharge to [facility] tomorrow with tapering dose of steroids VS,Meñobonelisha, I+O VS, Fishbone, I+O Laboratory Tests 02/15/17 06:41 Red Blood Count 3.47 L, Mean Corpuscular Volume 88.0, Mean Corpuscular Hemoglobin 29.1, Mean Corpuscular Hemoglobin Concent 33.0, Red Cell Distribution Width 14.2, Neutrophils (%) (Auto) 86.7 H, Lymphocytes (%) (Auto) 8.3 L, Monocytes (%) (Auto) 4.0, Eosinophils (%) (Auto) 0.2, Basophils (%) (Auto ) 0.1, Neutrophils # (Auto) 11.3 H, Lymphocytes # (Auto) 1.2 L, Monocytes # ( Auto) 0.5, Eosinophils # (Auto) 0.0, Basophils # (Auto) 0.0, Calcium Level 8.5 L , Aspartate Amino Transf (AST/SGOT) 8 L, Alanine Aminotransferase (ALT/SGPT) 17 , Alkaline Phosphatase 32 L, Total Bilirubin 0.1 L, Total Protein 6.8, Albumin 3.0 L Vital Signs Date Time Temp Pulse Resp B/P (MAP) Pulse Ox O2 Delivery O2 Flow Rate FiO2 02/15/17 09:41 70 142/54 02/15/17 06:00 98.3 18 91 Room Air 02/13/17 06:00 3.0 I&O- Last 24 Hours up to 6 AM 02/15/17 05:59 Intake Total 20 ml Output Total 1000 ml Balance -980 ml ELISSA BAUER MD Feb 15, 2017 13:17
[2017-02-15] MEDS ORDERED: PRED10TA2 PO (13:19)
[2017-02-15] MEDS: ALBUTEROL SULFATE 2.5 MG/0.5 ML INH NEB SOLN INH PRN (16:29)
[2017-02-15 22:00] VITALS: BP 134/44
[2017-02-15] MEDS: predniSONE 10 MG TAB PO SCH (22:40)
[2017-02-15] MEDS: LORATADINE 10 MG TAB PO SCH (22:43)
[2017-02-16] MEDS: ULTRACET TAB PO PRN ×2 (00:24→08:05)
[2017-02-16] MEDS: LEVOTHYROXINE 88MCG TABLET (0.088 MG) PO SCH (05:40)
[2017-02-16 06:00] VITALS: BP 168/72
[2017-02-16 06:05] VITALS: BP 164/70
[2017-02-16 06:10] VITALS: BP 180/80
[2017-02-16 06:46] LABS: BASO % 0.2 % (0.0-1.0); EOS % 0.4 % (0.0-3.0); LARGE UNSTAINED CELL # 0.2 K/mm3 (0.0-0.4); LARGE UNSTAINED CELL % 1.5 % (0.0-4.0); LYMPH # 1.3 K/mm3 (1.5-4.5); LYMPH % 9.4 % (24.0-44.0); MEAN CORPUSCULAR HEMOGLOBIN 28.9 pg (27.0-33.0); MEAN CORPUSCULAR HGB CONC 32.5 g/dl (32.0-36.5); MEAN CORPUSCULAR VOLUME 88.9 fl (80.0-96.0); MONO # 0.8 K/mm3 (0.0-0.8); MONO % 6.4 % (0.0-5.0); NEUTROPHILS # 10.1 K/mm3 (1.8-7.7); NEUTROPHILS % 82.2 % (36.0-66.0); PLATELET COUNT, AUTOMATED 257 k/mm3 (150-450); RED CELL DISTRIBUTION WIDTH 14.3 % (11.5-14.5); WHITE BLOOD COUNT 12.3 K/mm3 (4.0-10.0)
[2017-02-16 07:03] LABS: ALBUMIN 3.1 GM/DL (3.2-5.2); ALBUMIN/GLOBULIN RATIO 0.82 (1.00-1.93); BILIRUBIN,TOTAL 0.2 MG/DL (0.2-1.0); CALCIUM LEVEL 8.7 MG/DL (8.8-10.2); CREATININE FOR GFR 1.12 MG/DL (0.55-1.02); GLOMERULAR FILTRATION RATE 48.9 (>32); POTASSIUM SERUM 4.3 MEQ/L (3.5-5.1); TOTAL PROTEIN 6.9 GM/DL (6.4-8.2)
[2017-02-16] MEDS: ALBUTEROL SULFATE 2.5 MG/0.5 ML INH NEB SOLN INH SCH (07:31)
[2017-02-16] MEDS: ADVAIR HFA 115/21MCG INHALER INH SCH (07:31)
[2017-02-16 08:04] VITALS: BP 180/80
[2017-02-16] MEDS: FERROUS SULFATE 325MG TAB PO SCH (08:04)
[2017-02-16] MEDS: PREGABALIN 100 MG CAP (LYRICA) PO SCH (08:04)
[2017-02-16] MEDS: PANTOPRAZOLE 40MG TAB (PROTONIX) PO SCH (08:04)
[2017-02-16] MEDS: METOPROLOL TART 50 MG TAB PO SCH (08:04)
[2017-02-16] MEDS: MULTIVITAMINS/MINERALS THERAP 1 TAB PO SCH (08:04)
[2017-02-16] MEDS: predniSONE 10 MG TAB PO SCH (08:05)
[2017-02-16] MEDS: FUROSEMIDE 20 MG TAB PO SCH (08:05)
[2017-02-16] MEDS: SPIRONOLACTONE 25 MG TAB PO SCH (08:05)
[2017-02-16] MEDS: CYANOCOBALAMIN 500 MCG TAB PO SCH (08:05)
[2017-02-16] MEDS: HumaLOG INSULIN (NovoLOG) PER UNIT SC SCH (08:05)
[2017-02-16] MEDS: ANALGESIC BALM CRM 120 GM TOP SCH (08:06)
[2017-02-16] MEDS: NYSTATIN 100,000 UNITS/GM TOPICAL PWD 15 GM TOP SCH (08:06)
[2017-02-16] MEDS: POLYVINYL ALCOHOL OPHTH SOLN 15 ML(LIQUITEARS) OU SCH (08:06)
[2017-02-16] MEDS: MUPIROCIN 2% CREAM 30GM TOP SCH (08:07)
--- NOTE | 2017-02-16 15:27 | DSES ---
DATE OF ADMISSION: 02/06/2017 DATE OF DISCHARGE: 02/16/2017 ATTENDING PHYSICIAN: Arminda Cherry MD DICTATED BY: Arminda Cherry MD PRIMARY CARE PHYSICIAN: Unknown. REFERRING PHYSICIAN: None. CONSULTING PHYSICIAN: None. CONDITION AT DISCHARGE: Stable. FINAL DIAGNOSES: 1. Acute hypoxic respiratory failure, likely secondary to acute chronic obstructive pulmonary disease (COPD) exacerbation. 2. Intractable back pain associated with leg pain and neuropathy. 3. Neuropathy and spinal stenosis. 4. Urinary tract infection. PROCEDURES: None. HISTORY OF THE PRESENT ILLNESS: The patient is an 86-year-old female with a past medical history of spinal stenosis, colon cancer, status post right hemicolectomy, gastrointestinal bleed in the past, paroxysmal atrial fibrillation on Xarelto, who presented to the emergency room with intractable back pain and bilateral leg pain. She is noted to have rectal bleeding as well. The patient was admitted to medical/surgical floor and had serial hemoglobins checked. The patient was seen and examined at the bedside. She notes that she is ready to leave. The patient remained in the hospital because on 02/13/2017 she began to have some shortness of breath and she was started on steroids to help with her breathing. HOSPITAL COURSE: 1. Status post acute hypoxic respiratory failure, probably secondary to acute COPD exacerbation secondary to fluid overload. No longer required supplemental oxygen, does not use oxygen at baseline. Conversational dyspnea was noted while off oxygen, but has now resolved. Physical shows improvement of the breathing. BNP is mildly elevated. Chest x-ray on 02/10/2017 is without evidence of vascular engorgement or pulmonary edema. Continue with home dose of Lasix. Continue with DuoNeb and Advair. The patient was started on prednisone when she began to experience shortness of breath. After that point, she was put on a prednisone taper to be completed as an outpatient. 2. Status post intractable back pain associated with leg pain and neuropathy. Difficulty with ambulation and gait dysfunction. Continue with physical therapy (PT). 3. Neuropathy and spinal stenosis. 4. Urinary tract infection. Urinalysis consistent with infection. Urine culture on 02/05/2017 were positive for Klebsiella oxytoca. Status post ceftriaxone for a 5 day duration was completed on 02/10/2017. 5. Adenocarcinoma of the colon, status post laparoscopy and right hemicolectomy in August 2016. Colonoscopy and esophagogastroduodenoscopy (EGD) were done on 09/03/2016. 6. Hypothyroidism. Continue with levothyroxine. 7. Hypertension . Continue with furosemide, metoprolol and spironolactone. 8. Gastroesophageal reflux disease (GERD). Continue with omeprazole. 9. Deep vein thrombosis (DVT) prophylaxis. She has been on sleeve compression devices. 10. Paroxysmal atrial fibrillation. The patient has been on metoprolol tartrate 50 mg twice a day for rate control. Her anticoagulation with Xarelto was stopped. The patient will be continuing to be off Xarelto and have her followup with cardiology as an outpatient for restarting Xarelto. DISCHARGE MEDICATIONS: The patient will be discharged home with the following: - prednisone 10 mg to be given as directed - tramadol one tablet by mouth every 8 hours as needed for pain - acetaminophen 650 mg by mouth daily as needed for pain - albuterol 2.5 mg inhaled twice a day - artificial tears two drops in each twice a day - Aspercreme one dose externally three times a day - cyanocobalamin 1000 mcg by mouth daily - ferrous sulfate by mouth daily - furosemide 60 mg by mouth daily - hydrocortisone one dose per rectum three times a day as needed for hemorrhoids - levothyroxine 88 mcg by mouth daily - loratadine 10 mg by mouth at night - metformin 1000 mg by mouth twice a day - metoprolol 50 mg by mouth twice a day - milk of magnesia 30 mL by mouth daily as needed for constipation - multivitamin one tablet by mouth daily - pregabalin 100 mg by mouth three times a day - prochlorperazine 5 mg by mouth every 6 hours as needed for nausea - spironolactone 25 mg daily Stopped medications include: - Xarelto 20 mg by mouth daily DISCHARGE INSTRUCTIONS: The patient has been advised to followup with her primary care provider and cardiology within the next 7 days. She has been advised to remain compliant with her treatment plan and medications and return to the emergency room if she experiences any problems. TIME SPENT ON DISCHARGE: Greater than 35 minutes.
== END 2017-02-16 12:40 | DRG 377 ==
LOC: M ED 13:25 → M ED INP 16:38 → M MS5PR 18:49 → OBSVTOIN 02-06 13:56
PROVIDERS: ADMIT Internal Medicine Nephrology; ATTEND Internal Medicine
DX: K62.5 Hemorrhage of anus and rectum (principal); I50.33 Acute on chronic diastolic (congestive) heart failure; J96.01 Acute respiratory failure with hypoxia; N39.0 Urinary tract infection, site not specified; J44.1 Chronic obstructive pulmonary disease with (acute) exacerbation; Z66 Do not resuscitate; M54.9 Dorsalgia, unspecified; I27.2 Other secondary pulmonary hypertension; M48.00 Spinal stenosis, site unspecified; E11.9 Type 2 diabetes mellitus without complications; L02.32 Furuncle of buttock; G62.9 Polyneuropathy, unspecified; I48.0 Paroxysmal atrial fibrillation; E87.8 Other disorders of electrolyte and fluid balance, not elsewhere classified; B96.1 Klebsiella pneumoniae [K. pneumoniae] as the cause of diseases classified elsewhere; E03.9 Hypothyroidism, unspecified; I11.0 Hypertensive heart disease with heart failure; K21.9 Gastro-esophageal reflux disease without esophagitis; Z79.84 Long term (current) use of oral hypoglycemic drugs; Z79.899 Other long term (current) drug therapy; Z85.038 Personal history of other malignant neoplasm of large intestine; Z90.49 Acquired absence of other specified parts of digestive tract; Z79.01 Long term (current) use of anticoagulants; Z90.710 Acquired absence of both cervix and uterus; Z87.891 Personal history of nicotine dependence; Z80.51 Family history of malignant neoplasm of kidney; Z80.42 Family history of malignant neoplasm of prostate; Z82.49 Family history of ischemic heart disease and other diseases of the circulatory system; Z80.0 Family history of malignant neoplasm of digestive organs

== ENCOUNTER → 2017-02-24 | Outpatient (REF) ==
[~2017-02-24] MED LIST changes: +ASPE10LO EX; +ASPE16CR EXT; +FERR325T3 PO; +MILKSUS PO; +MULT1CHW39 PO; +PRED10TA2 PO; +PROC5TA PO; +TRAM37.53 PO; +VITA100L PO; +VITMTA PO; +compazine PO
[2017-02-25 10:38] LABS: MEAN CORPUSCULAR HEMOGLOBIN 28.5 pg (27.0-33.0); MEAN CORPUSCULAR HGB CONC 32.6 g/dl (32.0-36.5); MEAN CORPUSCULAR VOLUME 87.4 fl (80.0-96.0); RED CELL DISTRIBUTION WIDTH 13.8 % (11.5-14.5); WHITE BLOOD COUNT 16.9 K/mm3 (4.0-10.0)
[2017-02-25 10:59] LABS: CREATININE FOR GFR 1.16 MG/DL (0.55-1.02); GLOMERULAR FILTRATION RATE 46.9 (>32); POTASSIUM SERUM 4.6 MEQ/L (3.5-5.1)
== END ==
PROVIDERS: ATTEND Internal Medicine
DX: I50.9 Heart failure, unspecified (principal); I10 Essential (primary) hypertension; E03.9 Hypothyroidism, unspecified

== ENCOUNTER → 2017-02-27 | Outpatient (REF) ==
[2017-02-27 19:16] LABS: CREATININE FOR GFR 1.11 MG/DL (0.55-1.02); GLOMERULAR FILTRATION RATE 49.4 (>32); POTASSIUM SERUM 3.9 MEQ/L (3.5-5.1)
[2017-02-27 19:24] LABS: MEAN CORPUSCULAR HEMOGLOBIN 29.5 pg (27.0-33.0); MEAN CORPUSCULAR HGB CONC 33.1 g/dl (32.0-36.5); MEAN CORPUSCULAR VOLUME 88.9 fl (80.0-96.0); RED CELL DISTRIBUTION WIDTH 13.3 % (11.5-14.5)
== END ==
PROVIDERS: ATTEND Internal Medicine
DX: Z00.00 Encounter for general adult medical examination without abnormal findings (principal)

== ENCOUNTER → 2017-03-25 | Outpatient (REF) ==
[2017-03-25 09:34] LABS: MEAN CORPUSCULAR HEMOGLOBIN 27.9 pg (27.0-33.0); MEAN CORPUSCULAR VOLUME 87.3 fl (80.0-96.0); RED CELL DISTRIBUTION WIDTH 13.2 % (11.5-14.5); WHITE BLOOD COUNT 6.3 10^3/uL (4.0-10.0)
[2017-03-25 10:18] LABS: ANION GAP 8 MEQ/L (8-16); BLOOD UREA NITROGEN 22 MG/DL (7-18); CALCIUM LEVEL 8.7 MG/DL (8.8-10.2); CARBON DIOXIDE LEVEL 32 MEQ/L (21-32); CHLORIDE LEVEL 98 MEQ/L (98-107); CREATININE FOR GFR 0.93 MG/DL (0.55-1.02); GLOMERULAR FILTRATION RATE > 60.0 (>32); GLUCOSE, FASTING 122 MG/DL (83-110); POTASSIUM SERUM 3.8 MEQ/L (3.5-5.1); SODIUM LEVEL 138 MEQ/L (136-145)
== END ==
PROVIDERS: ATTEND Internal Medicine
DX: I50.9 Heart failure, unspecified (principal)

== ENCOUNTER → 2017-03-31 | Outpatient (REF) | payer MEDICARE, MEDICAID, OTHER ==
[2017-03-31 13:50] LABS: CARCINOEMBRYONIC ANTIGEN 6.1 NG/ML (<2.5)
[2017-03-31 16:36] LABS: PERCENT SATURATION 18.3 % (13.2-45.0)
== END ==
LOC: M LAB REF 12:34
PROVIDERS: ATTEND Internal Medicine Medical Oncology
DX: C18.9 Malignant neoplasm of colon, unspecified (principal)

== ENCOUNTER 2017-04-13 07:33 | Emergency (ER) | payer MEDICARE, MEDICAID ==
[~2017-04-13] VITALS: Ht 162.6 cm; Wt 71.8 kg
[2017-04-13 08:07] VITALS: BP 168/72
--- NOTE | 2017-04-13 08:57 | REP ---
PELVIS AND RIGHT HIP: AP view of the pelvis and two views of the right hip are performed and demonstrate no evidence of acute fracture or dislocation. Mild degenerative changes are seen at each hip joint. IMPRESSION: No acute fracture or dislocation. Signed by Guanaco Montejo MD 04/14/2017 07:37 P
--- NOTE | 2017-04-13 09:01 | REP ---
LUMBOSACRAL SPINE: Six views of the lumbosacral spine are performed. There is no compression fracture. There is mild anterior listhesis of L4 on L5 and L5 on S1 similar to prior CT exam of 02/06/2017. There is mild diffuse spurring. There is mild disc space narrowing and subchondral sclerosis at L2-3 with a more moderate degree of disc space narrowing and subchondral sclerosis at L3-4, L4-5 and L5-S1. There is sclerosis and spurring at the posterior facet joints, especially at L3-4 through L5-S1. The posterior elements are intact. There is slight curvature toward the left. Scattered vascular calcifications are present. IMPRESSION: Degenerative changes. No evidence of acute fracture. Signed by Guanaco Montejo MD 04/14/2017 07:37 P
== END 2017-04-13 09:57 | disposition home or self-care (01) ==
LOC: M ED 07:33 → EDBD 07:33 → M ED 09:57
DX: S30.0XXA Contusion of lower back and pelvis, initial encounter (principal); W01.0XXA Fall on same level from slipping, tripping and stumbling without subsequent striking against object, initial encounter; Y92.018 Other place in single-family (private) house as the place of occurrence of the external cause; Y93.89 Activity, other specified; Y99.8 Other external cause status; I11.0 Hypertensive heart disease with heart failure; J44.9 Chronic obstructive pulmonary disease, unspecified; I50.9 Heart failure, unspecified; E11.9 Type 2 diabetes mellitus without complications; Z79.899 Other long term (current) drug therapy; Z79.84 Long term (current) use of oral hypoglycemic drugs; Z87.891 Personal history of nicotine dependence

== ENCOUNTER → 2017-07-16 | Outpatient (REF) | payer MEDICARE, MEDICAID | LOC: M LAB REF 12:40 | DX: N39.0 Urinary tract infection, site not specified (principal) | CPT/HCPCS: 87186 ==

== ENCOUNTER → 2017-10-20 | Outpatient (CLI) | payer MEDICARE, MEDICAID | LOC: M PAIN 09:45 | DX: M46.1 Sacroiliitis, not elsewhere classified (principal); M51.26 Other intervertebral disc displacement, lumbar region; E11.9 Type 2 diabetes mellitus without complications; E03.9 Hypothyroidism, unspecified; M48.00 Spinal stenosis, site unspecified; I10 Essential (primary) hypertension; J30.89 Other allergic rhinitis; Z79.82 Long term (current) use of aspirin; Z79.84 Long term (current) use of oral hypoglycemic drugs; Z79.899 Other long term (current) drug therapy | CPT/HCPCS: G0463 ==

== ENCOUNTER → 2017-10-30 | Outpatient (REF) ==
[2017-10-30 10:10] LABS: HEMATOCRIT 32.9 % (36.0-47.0); HEMOGLOBIN 10.7 g/dl (12.0-15.5); MEAN CORPUSCULAR HEMOGLOBIN 29.5 pg (27.0-33.0); MEAN CORPUSCULAR HGB CONC 32.5 g/dl (32.0-36.5); MEAN CORPUSCULAR VOLUME 90.6 fl (80.0-96.0); PLATELET COUNT, AUTOMATED 253 10^3/uL (150-450); RED BLOOD COUNT 3.63 10^6/uL (4.00-5.40); RED CELL DISTRIBUTION WIDTH 13.4 % (11.5-14.5); WHITE BLOOD COUNT 6.3 10^3/uL (4.0-10.0)
[2017-10-30 10:33] LABS: ANION GAP 9 MEQ/L (8-16); BLOOD UREA NITROGEN 37 MG/DL (7-18); CALCIUM LEVEL 8.6 MG/DL (8.8-10.2); CARBON DIOXIDE LEVEL 27 MEQ/L (21-32); CHLORIDE LEVEL 102 MEQ/L (98-107); CREATININE FOR GFR 1.14 MG/DL (0.55-1.30); GLOMERULAR FILTRATION RATE 47.8 (>32); GLUCOSE, FASTING 200 MG/DL (70-100); POTASSIUM SERUM 4.3 MEQ/L (3.5-5.1); SODIUM LEVEL 138 MEQ/L (136-145)
== END ==
DX: I50.32 Chronic diastolic (congestive) heart failure (principal)

== ENCOUNTER → 2017-11-09 | Outpatient (CLI) | payer MEDICARE, MEDICAID ==
[~2017-11-09] MED LIST changes: -/AMLO25TA OR; -/MOM400 OR; -ACET1TAB17 PO; -ALBU83IN INH; -AMLO5TAB2 PO; -ANUS2.5C2 PR; -ARTISOL2 OU; -ASPE10LO EX; -ASPE16CR EXT; -CLAR10CA3 PO; -CLAR1TAB2 PO; -COLA50CA3 OR; -DOCU100C16 PO; -DULC5TAB PO; -ELIQ5TAB PO; -FERR220E2 PO; -FERR325T3 PO; -FURO20TA2 PO; -FURO40TA2 PO; -GABA-279 PO; -GLYB5TAB5 PO; -IBUP-1114 PO; -IBUP200T2 PO; +ISOVUE-M 300 61% 15ML VIAL (Q9967) As Ordered; -KETO2CR TOP; -KLOR10TA21 PO; -KLOR1TAB69 PO; -LASI40TA PO; -LEVA1TAB PO; -LEVA1TAB2 PO; -LEVO88TA2 PO; -LEVO88TA3 PO; +LIDOCAINE 1% SDV INJ 30 ML VIAL As Ordered; -LIQUSOL OU; -LISI2.5T3 PO; -LYRI75CA PO; -MEDR4PAK PO; -METF10004 PO; -METF500T13 PO; -METO50TA7 PO; -MILKSUS PO; -MULT1CHW39 PO; -MYCOSTATIN TOP; -OPTI0.5D5 OU; -POTASSIUM CL ER PO; -PRED10TA2 PO; -PREG100CA PO; -PREPOI PR; -PROC5TA PO; -RISP1TAB3 OR; -SENO8.6T10 PO; -SENO8.6T9 PO; -SPIR25TA2 PO; -SYNT112T2 PO; -TRAM37.53 PO; -TRAM50TA2 PO; -TUMS500C PO; -TYLE325T5 PO; -ULTR50TA PO; -VITA10002 PO; -VITA100072 PO; -VITA100L PO; -VITAMIN B12 INJ; -VITAMINB IM; -VITMTA PO; -WOME5TAB PO; -XARE20TA PO; -ZOFR20TA PO; -compazine PO; +methylPREDNISolone SUSP 40 MG/ML (DEPO-medrol) VIAL (J1030) As Ordered
== END ==
LOC: M PAIN 08:45
DX: G89.29 Other chronic pain (principal); M48.061 Spinal stenosis, lumbar region without neurogenic claudication; M51.16 Intervertebral disc disorders with radiculopathy, lumbar region; E11.9 Type 2 diabetes mellitus without complications; E03.9 Hypothyroidism, unspecified; I10 Essential (primary) hypertension; F03.90 Unspecified dementia, unspecified severity, without behavioral disturbance, psychotic disturbance, mood disturbance, and anxiety; J30.89 Other allergic rhinitis; Z79.82 Long term (current) use of aspirin; Z79.84 Long term (current) use of oral hypoglycemic drugs; Z79.899 Other long term (current) drug therapy
CPT/HCPCS: J1030

== ENCOUNTER → 2017-11-24 | Outpatient (REF) ==
[2017-11-24 09:25] LABS: HEMATOCRIT 37.4 % (36.0-47.0); HEMOGLOBIN 12.3 g/dl (12.0-15.5); MEAN CORPUSCULAR HEMOGLOBIN 29.6 pg (27.0-33.0); MEAN CORPUSCULAR HGB CONC 32.9 g/dl (32.0-36.5); MEAN CORPUSCULAR VOLUME 89.9 fl (80.0-96.0); PLATELET COUNT, AUTOMATED 229 10^3/uL (150-450); RED BLOOD COUNT 4.16 10^6/uL (4.00-5.40); RED CELL DISTRIBUTION WIDTH 13.3 % (11.5-14.5); WHITE BLOOD COUNT 8.2 10^3/uL (4.0-10.0)
[2017-11-24 09:47] LABS: ANION GAP 10 MEQ/L (8-16); BLOOD UREA NITROGEN 34 MG/DL (7-18); CALCIUM LEVEL 8.8 MG/DL (8.8-10.2); CARBON DIOXIDE LEVEL 27 MEQ/L (21-32); CHLORIDE LEVEL 100 MEQ/L (98-107); CREATININE FOR GFR 1.05 MG/DL (0.55-1.30); GLOMERULAR FILTRATION RATE 52.5 (>32); GLUCOSE, FASTING 121 MG/DL (70-100); POTASSIUM SERUM 4.7 MEQ/L (3.5-5.1); SODIUM LEVEL 137 MEQ/L (136-145)
== END ==
DX: I50.9 Heart failure, unspecified (principal)

== ENCOUNTER → 2018-01-18 | Outpatient (CLI) | payer MEDICARE, MEDICAID | LOC: M PAIN 11:30 | DX: M46.1 Sacroiliitis, not elsewhere classified (principal); M51.26 Other intervertebral disc displacement, lumbar region; M25.552 Pain in left hip; E11.9 Type 2 diabetes mellitus without complications; E03.9 Hypothyroidism, unspecified; I10 Essential (primary) hypertension; J30.89 Other allergic rhinitis; Z79.82 Long term (current) use of aspirin; Z79.899 Other long term (current) drug therapy | CPT/HCPCS: G0463 ==

== ENCOUNTER → 2018-01-19 | Outpatient (CLI) | payer MEDICARE, MEDICAID | LOC: M RAD 10:46 | DX: M16.0 Bilateral primary osteoarthritis of hip (principal) | CPT/HCPCS: 72192 ==

== ENCOUNTER 2018-02-03 14:12 | Outpatient (REF) ==
[2018-02-04 09:54] LABS: POTASSIUM SERUM 5.5 MEQ/L (3.5-5.1)
== END 2018-02-04 ==
DX: I50.9 Heart failure, unspecified (principal)

== ENCOUNTER → 2018-02-03 | Outpatient (REF) | payer MEDICARE, MEDICAID ==
[2018-02-03 09:39] LABS: HEMATOCRIT 34.2 % (36.0-47.0); HEMOGLOBIN 10.6 g/dl (12.0-15.5); MEAN CORPUSCULAR HEMOGLOBIN 29.1 pg (27.0-33.0); PLATELET COUNT, AUTOMATED 212 10^3/uL (150-450); RED BLOOD COUNT 3.64 10^6/uL (4.00-5.40); RED CELL DISTRIBUTION WIDTH 13.3 % (11.5-14.5)
[2018-02-03 10:20] LABS: ANION GAP 10 MEQ/L (8-16); BLOOD UREA NITROGEN 51 MG/DL (7-18); CALCIUM LEVEL 8.5 MG/DL (8.8-10.2); CARBON DIOXIDE LEVEL 22 MEQ/L (21-32); CHLORIDE LEVEL 107 MEQ/L (98-107); CREATININE FOR GFR 1.35 MG/DL (0.55-1.30); GLOMERULAR FILTRATION RATE 39.3 (>32); GLUCOSE, FASTING 109 MG/DL (70-100); NT-PRO BNP 545 PG/ML (<450); SODIUM LEVEL 139 MEQ/L (136-145)
[2018-02-03 10:37] LABS: POTASSIUM SERUM 5.8 MEQ/L (3.5-5.1)
== END ==
DX: I50.9 Heart failure, unspecified (principal)
CPT/HCPCS: 80048

== ENCOUNTER → 2018-02-05 | Outpatient (REF) | payer MEDICARE, MEDICAID ==
[2018-02-05 10:07] LABS: POTASSIUM SERUM 5.5 MEQ/L (3.5-5.1)
[2018-02-05 15:07] LABS: ANION GAP 9 MEQ/L (8-16); BLOOD UREA NITROGEN 56 MG/DL (7-18); CALCIUM LEVEL 8.8 MG/DL (8.8-10.2); CARBON DIOXIDE LEVEL 25 MEQ/L (21-32); CHLORIDE LEVEL 107 MEQ/L (98-107); CREATININE FOR GFR 1.48 MG/DL (0.55-1.30); GLOMERULAR FILTRATION RATE 35.4 (>32); GLUCOSE, FASTING 161 MG/DL (70-100); NT-PRO BNP 857 PG/ML (<450); SODIUM LEVEL 141 MEQ/L (136-145)
== END ==
DX: Z51.81 Encounter for therapeutic drug level monitoring (principal)
CPT/HCPCS: 80048

== ENCOUNTER 2018-02-10 04:11 | Emergency (ER) | payer MEDICARE, MEDICAID ==
[2018-02-10 05:27] LABS: HEMATOCRIT 29.4 % (36.0-47.0); HEMOGLOBIN 9.3 g/dl (12.0-15.5); MEAN CORPUSCULAR HEMOGLOBIN 28.9 pg (27.0-33.0); MEAN CORPUSCULAR HGB CONC 31.6 g/dl (32.0-36.5); MEAN CORPUSCULAR VOLUME 91.3 fl (80.0-96.0); PLATELET COUNT, AUTOMATED 194 10^3/uL (150-450); RED BLOOD COUNT 3.22 10^6/uL (4.00-5.40); RED CELL DISTRIBUTION WIDTH 13.3 % (11.5-14.5); WHITE BLOOD COUNT 6.6 10^3/uL (4.0-10.0)
[2018-02-10 05:49] LABS: ANION GAP 9 MEQ/L (8-16); BLOOD UREA NITROGEN 61 MG/DL (7-18); CALCIUM LEVEL 8.8 MG/DL (8.8-10.2); CARBON DIOXIDE LEVEL 24 MEQ/L (21-32); CHLORIDE LEVEL 106 MEQ/L (98-107); GLOMERULAR FILTRATION RATE 34.8 (>32); GLUCOSE, FASTING 94 MG/DL (70-100); POTASSIUM SERUM 5.6 MEQ/L (3.5-5.1); SODIUM LEVEL 139 MEQ/L (136-145)
[2018-02-10] MEDS: GASTROGRAFIN SOLUTION 30ML (Q9963) PO ×2 (05:51→06:15)
[2018-02-10] MEDS ORDERED: ISOVUE-370 76% 100ML VIAL (Q9967) As Ordered (05:52)
[2018-02-10 09:25] LABS: HEMATOCRIT 29.4 % (36.0-47.0); HEMOGLOBIN 9.3 g/dl (12.0-15.5); MEAN CORPUSCULAR HGB CONC 31.6 g/dl (32.0-36.5); MEAN CORPUSCULAR VOLUME 91.6 fl (80.0-96.0); PLATELET COUNT, AUTOMATED 186 10^3/uL (150-450); RED BLOOD COUNT 3.21 10^6/uL (4.00-5.40); RED CELL DISTRIBUTION WIDTH 13.3 % (11.5-14.5); WHITE BLOOD COUNT 6.3 10^3/uL (4.0-10.0)
[2018-02-10] MEDS: ACETAMINOPHEN TAB 650MG DOSE (2X325MG) PO (10:21)
== END 2018-02-10 12:19 | disposition home or self-care (01) ==
LOC: M ED 04:11
DX: K64.8 Other hemorrhoids (principal); D64.9 Anemia, unspecified; E11.9 Type 2 diabetes mellitus without complications; I10 Essential (primary) hypertension; F03.90 Unspecified dementia, unspecified severity, without behavioral disturbance, psychotic disturbance, mood disturbance, and anxiety; Z85.038 Personal history of other malignant neoplasm of large intestine; N28.1 Cyst of kidney, acquired; K44.9 Diaphragmatic hernia without obstruction or gangrene; Z79.84 Long term (current) use of oral hypoglycemic drugs; Z79.899 Other long term (current) drug therapy

== ENCOUNTER → 2018-02-11 | Outpatient (REF) | payer MEDICARE, MEDICAID ==
[2018-02-11 11:00] LABS: HEMATOCRIT 31.5 % (36.0-47.0); HEMOGLOBIN 9.8 g/dl (12.0-15.5); MEAN CORPUSCULAR HEMOGLOBIN 28.8 pg (27.0-33.0); MEAN CORPUSCULAR HGB CONC 31.1 g/dl (32.0-36.5); MEAN CORPUSCULAR VOLUME 92.6 fl (80.0-96.0); PLATELET COUNT, AUTOMATED 218 10^3/uL (150-450); RED CELL DISTRIBUTION WIDTH 13.5 % (11.5-14.5)
== END ==
DX: K62.5 Hemorrhage of anus and rectum (principal)
CPT/HCPCS: 85027

== ENCOUNTER 2018-02-12 10:45 | Inpatient (IN) | payer MEDICARE, MEDICAID ==
[2018-02-12 11:46] LABS: BASO # 0.1 10^3/uL (0.0-0.2); BASO % 0.8 % (0.0-1.0); EOS # 0.2 10^3/uL (0.0-0.50); EOS % 3.2 % (0.0-3.0); HEMATOCRIT 25.8 % (36.0-47.0); HEMOGLOBIN 8.2 g/dl (12.0-15.5); IMMATURE GRANULOCYTE % 0.5 % (0-3.0); LYMPH % 30.8 % (24.0-44.0); MEAN CORPUSCULAR HEMOGLOBIN 29.5 pg (27.0-33.0); MEAN CORPUSCULAR HGB CONC 31.8 g/dl (32.0-36.5); MEAN CORPUSCULAR VOLUME 92.8 fl (80.0-96.0); MONO # 0.7 10^3/uL (0.0-0.8); MONO % 10.9 % (0.0-5.0); NEUTROPHILS # 3.6 10^3/uL (1.8-7.7); NEUTROPHILS % 53.8 % (36.0-66.0); PLATELET COUNT, AUTOMATED 196 10^3/uL (150-450); RED BLOOD COUNT 2.78 10^6/uL (4.00-5.40); RED CELL DISTRIBUTION WIDTH 13.6 % (11.5-14.5); WHITE BLOOD COUNT 6.6 10^3/uL (4.0-10.0)
[2018-02-12 11:58] LABS: INR 1.16; PARTIAL THROMBOPLASTIN TIME 28.6 SECONDS (25.4-37.6)
[2018-02-12 12:03] LABS: ALBUMIN 3.5 GM/DL (3.2-5.2); ALKALINE PHOSPHATASE 34 U/L (45-117); ALT/SGPT 15 U/L (12-78); AMYLASE 46 U/L (25-115); ANION GAP 8 MEQ/L (8-16); AST/SGOT 9 U/L (7-37); BILIRUBIN,DIRECT < 0.1 MG/DL (0.0-0.2); BILIRUBIN,TOTAL 0.2 MG/DL (0.2-1.0); BLOOD UREA NITROGEN 43 MG/DL (7-18); CALCIUM LEVEL 8.6 MG/DL (8.8-10.2); CARBON DIOXIDE LEVEL 28 MEQ/L (21-32); CHLORIDE LEVEL 106 MEQ/L (98-107); CPK CREATINE PHOSPHOKINASE 41 U/L (26-192); CREATININE FOR GFR 1.25 MG/DL (0.55-1.30); GLUCOSE, FASTING 96 MG/DL (70-100); LIPASE 315 U/L (73-393); POTASSIUM SERUM 4.5 MEQ/L (3.5-5.1); SODIUM LEVEL 142 MEQ/L (136-145); TROPONIN I < 0.02 NG/ML (< 0.10)
[2018-02-12 12:04] LABS: CK-MB VALUE MASS < 1.0 NG/ML (<3.6); MB/CK RELATIVE INDEX 2.43 (< OR =4)
[2018-02-12 12:19] LABS: LACTIC ACID SEPSIS PROTOCOL 1.8 MMOL/L (0.4-2.0)
[2018-02-12] MEDS: NS 1,000 ML IV (14:30)
[2018-02-12] MEDS: GOLYTELY SOLN 4000 ML BTL PO (16:30)
[2018-02-12] MEDS ORDERED: DEXTROSE 50% 50 ML SYRINGE IV (17:00)
[2018-02-12] MEDS ORDERED: GLUCAGON FOR INJ 1 MG VIAL (J1610) SC (17:00)
[2018-02-12] MEDS ORDERED: MOM 30ML SUSPENSION UDC PO (17:00)
[2018-02-12] MEDS ORDERED: ONDANSETRON 4 MG TAB (S0181) PO (17:00)
[2018-02-12] MEDS ORDERED: GLUCOSE 4 GM CHEW TABLET PO (17:00)
[2018-02-12] MEDS ORDERED: ACETAMINOPHEN 325 MG TAB PO (17:00)
[2018-02-12] MEDS ORDERED: ALBUTEROL SULFATE 2.5 MG/0.5 ML INH NEB SOLN INH (17:00)
[2018-02-12] MEDS: ACETAMINOPHEN TAB 650MG DOSE (2X325MG) PO ×2 (17:27→23:29)
[2018-02-12] MEDS: HumaLOG INSULIN (NovoLOG) PER UNIT SC (17:30)
[2018-02-12 18:05] LABS: BEDSIDE GLUCOSE 96 MG/DL (83-110)
[2018-02-12 21:06] LABS: BEDSIDE GLUCOSE 113 MG/DL (83-110)
[2018-02-12] MEDS: ALBUTEROL SULFATE 2.5 MG/0.5 ML INH NEB SOLN INH (21:06)
[2018-02-12] MEDS: PREGABALIN 100 MG CAP (LYRICA) PO (23:27)
[2018-02-12] MEDS: METOPROLOL TART 25 MG TABLET PO (23:27)
[2018-02-12] MEDS: POLYVINYL ALCOHOL OPHTH SOLN 15 ML(LIQUITEARS) OU (23:28)
[2018-02-13 06:34] LABS: ESTIMATED AVERAGE GLUCOSE 128 MG/DL (60-110); HEMOGLOBIN A1c 6.1 %
[2018-02-13] MEDS: LEVOTHYROXINE 88MCG TABLET (0.088 MG) PO (06:34)
[2018-02-13 06:58] LABS: BEDSIDE GLUCOSE 110 MG/DL (83-110)
[2018-02-13] MEDS: HumaLOG INSULIN (NovoLOG) PER UNIT SC ×4 (07:30→21:20)
[2018-02-13] MEDS: ALBUTEROL SULFATE 2.5 MG/0.5 ML INH NEB SOLN INH ×2 (07:32→20:49)
[2018-02-13 08:47] LABS: BASO # 0.1 10^3/uL (0.0-0.2); BASO % 0.6 % (0.0-1.0); EOS # 0.1 10^3/uL (0.0-0.50); EOS % 1.3 % (0.0-3.0); HEMOGLOBIN 7.7 g/dl (12.0-15.5); IMMATURE GRANULOCYTE % 0.5 % (0-3.0); LYMPH # 1.7 10^3/uL (1.5-4.5); LYMPH % 21.5 % (24.0-44.0); MEAN CORPUSCULAR HEMOGLOBIN 28.8 pg (27.0-33.0); MEAN CORPUSCULAR HGB CONC 32.1 g/dl (32.0-36.5); MEAN CORPUSCULAR VOLUME 89.9 fl (80.0-96.0); MONO # 0.6 10^3/uL (0.0-0.8); MONO % 7.4 % (0.0-5.0); NEUTROPHILS # 5.3 10^3/uL (1.8-7.7); NEUTROPHILS % 68.7 % (36.0-66.0); PLATELET COUNT, AUTOMATED 184 10^3/uL (150-450); RED BLOOD COUNT 2.67 10^6/uL (4.00-5.40); RED CELL DISTRIBUTION WIDTH 13.6 % (11.5-14.5); WHITE BLOOD COUNT 7.7 10^3/uL (4.0-10.0)
[2018-02-13] MEDS ORDERED: SPIRONOLACTONE 25 MG TAB PO (09:00)
[2018-02-13] MEDS: METOPROLOL TART 25 MG TABLET PO ×2 (09:00→17:24)
[2018-02-13] MEDS: POLYVINYL ALCOHOL OPHTH SOLN 15 ML(LIQUITEARS) OU ×2 (09:00→21:21)
[2018-02-13] MEDS: PREGABALIN 100 MG CAP (LYRICA) PO ×3 (09:00→21:20)
[2018-02-13 09:10] LABS: ALBUMIN 3.4 GM/DL (3.2-5.2); ALKALINE PHOSPHATASE 32 U/L (45-117); ALT/SGPT 14 U/L (12-78); ANION GAP 10 MEQ/L (8-16); AST/SGOT 9 U/L (7-37); BILIRUBIN,TOTAL 0.2 MG/DL (0.2-1.0); BLOOD UREA NITROGEN 31 MG/DL (7-18); CALCIUM LEVEL 8.4 MG/DL (8.8-10.2); CARBON DIOXIDE LEVEL 26 MEQ/L (21-32); CHLORIDE LEVEL 107 MEQ/L (98-107); CREATININE FOR GFR 0.92 MG/DL (0.55-1.30); GLOMERULAR FILTRATION RATE > 60.0 (>32); GLUCOSE, FASTING 107 MG/DL (70-100); POTASSIUM SERUM 4.3 MEQ/L (3.5-5.1); SODIUM LEVEL 143 MEQ/L (136-145); TOTAL PROTEIN 6.5 GM/DL (6.4-8.2)
[2018-02-13] MEDS: ACETAMINOPHEN TAB 650MG DOSE (2X325MG) PO ×3 (09:24→21:22)
[2018-02-13] MEDS ORDERED: PROPOFOL 200 MG/20 ML VIAL As Ordered ×2 (10:28→11:03)
[2018-02-13] MEDS ORDERED: BUPIVACAINE/EPIN 0.25% 30 ML VIAL As Ordered (10:36)
[2018-02-13 11:37] LABS: BEDSIDE GLUCOSE 117 MG/DL (83-110)
[2018-02-13 11:46] LABS: FREE T4 1.07 NG/DL (0.76-1.46)
[2018-02-13] MEDS ORDERED: BUPIVACAINE/EPIN 0.25% 30 ML VIAL XX (11:52)
[2018-02-13] MEDS ORDERED: ONDANSETRON 4MG/2ML VIAL (J2405) IV (12:00)
[2018-02-13] MEDS ORDERED: fentaNYL 100 MCG/2 ML INJECTION (J3010) IV (12:00)
[2018-02-13] MEDS ORDERED: HYDROMORPHONE HCL 0.5 MG/ 0.5 ML SYRINGE (J1170 PER 1) IV (12:00)
[2018-02-13 12:40] LABS: HEMATOCRIT 21.4 % (36.0-47.0)
[2018-02-13 15:41] LABS: IMMEDIATE SPIN CROSSMATCH 1 1
[2018-02-13 17:03] LABS: BEDSIDE GLUCOSE 130 MG/DL (83-110)
[2018-02-13 20:21] LABS: BEDSIDE GLUCOSE 184 MG/DL (83-110)
[2018-02-13] MEDS ORDERED: HumaLOG INSULIN (NovoLOG) PER UNIT SC (21:00)
[2018-02-14] MEDS: LEVOTHYROXINE 88MCG TABLET (0.088 MG) PO (05:30)
[2018-02-14 07:43] LABS: BASO # 0.1 10^3/uL (0.0-0.2); BASO % 1.1 % (0.0-1.0); EOS # 0.2 10^3/uL (0.0-0.50); EOS % 3.2 % (0.0-3.0); HEMATOCRIT 28.4 % (36.0-47.0); IMMATURE GRANULOCYTE % 1.1 % (0-3.0); LYMPH # 1.8 10^3/uL (1.5-4.5); MEAN CORPUSCULAR HEMOGLOBIN 29.3 pg (27.0-33.0); MEAN CORPUSCULAR HGB CONC 32.4 g/dl (32.0-36.5); MEAN CORPUSCULAR VOLUME 90.4 fl (80.0-96.0); MONO # 0.8 10^3/uL (0.0-0.8); MONO % 11.9 % (0.0-5.0); NEUTROPHILS # 3.7 10^3/uL (1.8-7.7); NEUTROPHILS % 55.7 % (36.0-66.0); PLATELET COUNT, AUTOMATED 189 10^3/uL (150-450); RED BLOOD COUNT 3.14 10^6/uL (4.00-5.40); RED CELL DISTRIBUTION WIDTH 14.4 % (11.5-14.5); WHITE BLOOD COUNT 6.6 10^3/uL (4.0-10.0)
[2018-02-14 07:47] LABS: HEMOGLOBIN 9.2 g/dl (12.0-15.5)
[2018-02-14 08:05] LABS: ALBUMIN 3.3 GM/DL (3.2-5.2); ALBUMIN/GLOBULIN RATIO 1.06 (1.00-1.93); ALKALINE PHOSPHATASE 33 U/L (45-117); ALT/SGPT 14 U/L (12-78); ANION GAP 9 MEQ/L (8-16); AST/SGOT 12 U/L (7-37); BILIRUBIN,TOTAL 0.4 MG/DL (0.2-1.0); BLOOD UREA NITROGEN 18 MG/DL (7-18); CALCIUM LEVEL 8.3 MG/DL (8.8-10.2); CARBON DIOXIDE LEVEL 26 MEQ/L (21-32); CHLORIDE LEVEL 111 MEQ/L (98-107); CREATININE FOR GFR 0.86 MG/DL (0.55-1.30); GLOMERULAR FILTRATION RATE > 60.0 (>32); GLUCOSE, FASTING 144 MG/DL (70-100); MAGNESIUM LEVEL 1.8 MG/DL (1.8-2.4); POTASSIUM SERUM 3.7 MEQ/L (3.5-5.1); SODIUM LEVEL 146 MEQ/L (136-145); TOTAL PROTEIN 6.4 GM/DL (6.4-8.2)
[2018-02-14] MEDS: ALBUTEROL SULFATE 2.5 MG/0.5 ML INH NEB SOLN INH ×2 (08:52→20:29)
[2018-02-14] MEDS: NYSTATIN 100,000 UNITS/GM TOPICAL PWD 15 GM TOP ×2 (09:00→21:24)
[2018-02-14] MEDS: POLYVINYL ALCOHOL OPHTH SOLN 15 ML(LIQUITEARS) OU ×2 (09:10→21:24)
[2018-02-14] MEDS: ACETAMINOPHEN TAB 650MG DOSE (2X325MG) PO (09:11)
[2018-02-14] MEDS: HumaLOG INSULIN (NovoLOG) PER UNIT SC ×4 (09:11→21:23)
[2018-02-14] MEDS: PREGABALIN 100 MG CAP (LYRICA) PO ×3 (09:12→21:23)
[2018-02-14] MEDS: METOPROLOL TART 25 MG TABLET PO ×2 (09:12→21:23)
[2018-02-14 11:52] LABS: BEDSIDE GLUCOSE 218 MG/DL (83-110)
[2018-02-14 12:20] LABS: HEMOGLOBIN 8.4 g/dl (12.0-15.5)
[2018-02-14 17:06] LABS: BEDSIDE GLUCOSE 72 MG/DL (83-110)
[2018-02-14 18:03] LABS: HEMATOCRIT 25.2 % (36.0-47.0); HEMOGLOBIN 8.1 g/dl (12.0-15.5)
[2018-02-14 21:00] LABS: BEDSIDE GLUCOSE 150 MG/DL (83-110)
[2018-02-15] MEDS: ACETAMINOPHEN TAB 650MG DOSE (2X325MG) PO ×2 (00:41→09:03)
[2018-02-15 05:45] LABS: BASO # 0.1 10^3/uL (0.0-0.2); EOS # 0.3 10^3/uL (0.0-0.50); EOS % 4.3 % (0.0-3.0); HEMATOCRIT 24.8 % (36.0-47.0); IMMATURE GRANULOCYTE % 0.7 % (0-3.0); LYMPH # 2.3 10^3/uL (1.5-4.5); LYMPH % 32.7 % (24.0-44.0); MEAN CORPUSCULAR HEMOGLOBIN 29.3 pg (27.0-33.0); MEAN CORPUSCULAR HGB CONC 32.3 g/dl (32.0-36.5); MEAN CORPUSCULAR VOLUME 90.8 fl (80.0-96.0); MONO # 0.8 10^3/uL (0.0-0.8); MONO % 11.5 % (0.0-5.0); NEUTROPHILS # 3.5 10^3/uL (1.8-7.7); NEUTROPHILS % 49.8 % (36.0-66.0); PLATELET COUNT, AUTOMATED 182 10^3/uL (150-450); RED BLOOD COUNT 2.73 10^6/uL (4.00-5.40); RED CELL DISTRIBUTION WIDTH 14.5 % (11.5-14.5)
[2018-02-15] MEDS: LEVOTHYROXINE 88MCG TABLET (0.088 MG) PO (05:45)
[2018-02-15 05:58] LABS: ALBUMIN 2.8 GM/DL (3.2-5.2); ALBUMIN/GLOBULIN RATIO 0.93 (1.00-1.93); ALKALINE PHOSPHATASE 28 U/L (45-117); ALT/SGPT 13 U/L (12-78); ANION GAP 7 MEQ/L (8-16); AST/SGOT 11 U/L (7-37); BILIRUBIN,TOTAL 0.2 MG/DL (0.2-1.0); BLOOD UREA NITROGEN 17 MG/DL (7-18); CALCIUM LEVEL 8.1 MG/DL (8.8-10.2); CARBON DIOXIDE LEVEL 27 MEQ/L (21-32); CHLORIDE LEVEL 111 MEQ/L (98-107); GLOMERULAR FILTRATION RATE > 60.0 (>32); GLUCOSE, FASTING 103 MG/DL (70-100); MAGNESIUM LEVEL 1.6 MG/DL (1.8-2.4); POTASSIUM SERUM 3.7 MEQ/L (3.5-5.1); SODIUM LEVEL 145 MEQ/L (136-145); TOTAL PROTEIN 5.8 GM/DL (6.4-8.2)
[2018-02-15] MEDS: HumaLOG INSULIN (NovoLOG) PER UNIT SC ×2 (07:30→12:06)
[2018-02-15] MEDS: ALBUTEROL SULFATE 2.5 MG/0.5 ML INH NEB SOLN INH (07:38)
[2018-02-15] MEDS: PREGABALIN 100 MG CAP (LYRICA) PO (09:01)
[2018-02-15] MEDS: MAG SULF 1GM/100ML (MAG RUN) 1 GM in APPROPRIATE DILUENT 1 EA IV (09:02)
[2018-02-15] MEDS: METOPROLOL TART 25 MG TABLET PO (09:02)
[2018-02-15] MEDS: POLYVINYL ALCOHOL OPHTH SOLN 15 ML(LIQUITEARS) OU (09:08)
[2018-02-15] MEDS: NYSTATIN 100,000 UNITS/GM TOPICAL PWD 15 GM TOP (09:08)
[2018-02-15 11:24] LABS: BEDSIDE GLUCOSE 104 MG/DL (83-110)
[2018-02-15] MEDS: SPIRONOLACTONE 25 MG TAB PO (12:12)
[2018-02-15] MEDS: FUROSEMIDE 40 MG TAB PO (12:12)
== END 2018-02-15 12:32 | DRG 378 ==
LOC: M ED 10:45 → M ED INP 17:07 → M MSPAV 20:42
PROC: 0HB0XZX Excision of Scalp Skin, External Approach, Diagnostic (ICD-10-PCS; principal; 2018-02-13)
PROC: 0DJD8ZZ Inspection of Lower Intestinal Tract, Via Natural or Artificial Opening Endoscopic (ICD-10-PCS; 2018-02-13)
PROC: 0DJ08ZZ Inspection of Upper Intestinal Tract, Via Natural or Artificial Opening Endoscopic (ICD-10-PCS; 2018-02-13)
PROC: 30233N1 Transfusion of Nonautologous Red Blood Cells into Peripheral Vein, Percutaneous Approach (ICD-10-PCS; 2018-02-13)
DX: K62.5 Hemorrhage of anus and rectum (principal); D62 Acute posthemorrhagic anemia; I50.30 Unspecified diastolic (congestive) heart failure; I11.0 Hypertensive heart disease with heart failure; E78.5 Hyperlipidemia, unspecified; M81.0 Age-related osteoporosis without current pathological fracture; E11.40 Type 2 diabetes mellitus with diabetic neuropathy, unspecified; K64.8 Other hemorrhoids; K64.4 Residual hemorrhoidal skin tags; J45.909 Unspecified asthma, uncomplicated; M54.5 Low back pain; Z85.038 Personal history of other malignant neoplasm of large intestine; Z90.49 Acquired absence of other specified parts of digestive tract; Z86.73 Personal history of transient ischemic attack (TIA), and cerebral infarction without residual deficits; Z90.710 Acquired absence of both cervix and uterus; Z79.82 Long term (current) use of aspirin; Z79.84 Long term (current) use of oral hypoglycemic drugs; D17.5 Benign lipomatous neoplasm of intra-abdominal organs

== ENCOUNTER → 2018-02-12 | Outpatient (REF) | payer MEDICARE, MEDICAID ==
[~2018-02-12] MED LIST changes: +ACETAMINOPHEN TAB 650MG DOSE (2X325MG) PO; +BISACODYL 10 MG SUPP PR; +BUPIVACAINE/EPIN 0.25% 30 ML VIAL XX; -ISOVUE-M 300 61% 15ML VIAL (Q9967) As Ordered; -LIDOCAINE 1% SDV INJ 30 ML VIAL As Ordered; +ONDANSETRON 4 MG TAB (S0181) PO; +PANTOPRAZOLE 40MG INJ (PROTONIX) (C9113) IV; -methylPREDNISolone SUSP 40 MG/ML (DEPO-medrol) VIAL (J1030) As Ordered
[2018-02-12 09:19] LABS: HEMATOCRIT 27.7 % (36.0-47.0); HEMOGLOBIN 8.7 g/dl (12.0-15.5); MEAN CORPUSCULAR HEMOGLOBIN 29.4 pg (27.0-33.0); MEAN CORPUSCULAR HGB CONC 31.4 g/dl (32.0-36.5); MEAN CORPUSCULAR VOLUME 93.6 fl (80.0-96.0); PLATELET COUNT, AUTOMATED 202 10^3/uL (150-450); RED BLOOD COUNT 2.96 10^6/uL (4.00-5.40); RED CELL DISTRIBUTION WIDTH 13.7 % (11.5-14.5); WHITE BLOOD COUNT 7.1 10^3/uL (4.0-10.0)
== END ==
DX: K62.5 Hemorrhage of anus and rectum (principal)
CPT/HCPCS: 85027

== ENCOUNTER → 2018-02-16 | Outpatient (REF) | payer MEDICAID, MEDICARE ==
[2018-02-16 10:10] LABS: HEMATOCRIT 29.2 % (36.0-47.0); HEMOGLOBIN 9.2 g/dl (12.0-15.5); MEAN CORPUSCULAR HEMOGLOBIN 29.3 pg (27.0-33.0); MEAN CORPUSCULAR HGB CONC 31.5 g/dl (32.0-36.5); PLATELET COUNT, AUTOMATED 209 10^3/uL (150-450); RED BLOOD COUNT 3.14 10^6/uL (4.00-5.40); RED CELL DISTRIBUTION WIDTH 14.2 % (11.5-14.5); WHITE BLOOD COUNT 9.6 10^3/uL (4.0-10.0)
== END ==
DX: D64.9 Anemia, unspecified (principal)

== ENCOUNTER 2018-02-17 13:34 | Outpatient (REF) | payer MEDICARE, MEDICAID ==
[2018-02-18 09:53] LABS: HEMOGLOBIN 9.2 g/dl (12.0-15.5); MEAN CORPUSCULAR HEMOGLOBIN 29.2 pg (27.0-33.0); MEAN CORPUSCULAR HGB CONC 31.7 g/dl (32.0-36.5); MEAN CORPUSCULAR VOLUME 92.1 fl (80.0-96.0); PLATELET COUNT, AUTOMATED 223 10^3/uL (150-450); RED BLOOD COUNT 3.15 10^6/uL (4.00-5.40); RED CELL DISTRIBUTION WIDTH 13.9 % (11.5-14.5); WHITE BLOOD COUNT 8.2 10^3/uL (4.0-10.0)
== END 2018-02-18 ==
DX: D64.9 Anemia, unspecified (principal)
CPT/HCPCS: 85027

== ENCOUNTER → 2018-02-22 | Outpatient (REF) ==
[2018-02-22 11:06] LABS: HEMATOCRIT 27.9 % (36.0-47.0); HEMOGLOBIN 8.7 g/dl (12.0-15.5); MEAN CORPUSCULAR HEMOGLOBIN 28.1 pg (27.0-33.0); MEAN CORPUSCULAR HGB CONC 31.2 g/dl (32.0-36.5); PLATELET COUNT, AUTOMATED 253 10^3/uL (150-450); RED CELL DISTRIBUTION WIDTH 13.7 % (11.5-14.5); WHITE BLOOD COUNT 6.4 10^3/uL (4.0-10.0)
== END ==
DX: D64.9 Anemia, unspecified (principal)

== ENCOUNTER → 2018-02-25 | Outpatient (REF) ==
[2018-02-25 10:25] LABS: HEMATOCRIT 29.2 % (36.0-47.0); HEMOGLOBIN 9.2 g/dl (12.0-15.5); MEAN CORPUSCULAR HGB CONC 31.5 g/dl (32.0-36.5); MEAN CORPUSCULAR VOLUME 88.8 fl (80.0-96.0); PLATELET COUNT, AUTOMATED 333 10^3/uL (150-450); RED BLOOD COUNT 3.29 10^6/uL (4.00-5.40); RED CELL DISTRIBUTION WIDTH 13.6 % (11.5-14.5); WHITE BLOOD COUNT 7.4 10^3/uL (4.0-10.0)
== END ==
DX: D64.9 Anemia, unspecified (principal)

== ENCOUNTER → 2018-03-01 | Outpatient (REF) | payer MEDICARE, MEDICAID ==
[2018-03-01 11:20] LABS: HEMOGLOBIN 8.6 g/dl (12.0-15.5); MEAN CORPUSCULAR HEMOGLOBIN 27.7 pg (27.0-33.0); MEAN CORPUSCULAR HGB CONC 31.9 g/dl (32.0-36.5); MEAN CORPUSCULAR VOLUME 86.8 fl (80.0-96.0); PLATELET COUNT, AUTOMATED 280 10^3/uL (150-450); RED BLOOD COUNT 3.11 10^6/uL (4.00-5.40); RED CELL DISTRIBUTION WIDTH 13.8 % (11.5-14.5); WHITE BLOOD COUNT 6.8 10^3/uL (4.0-10.0)
== END ==
DX: D64.9 Anemia, unspecified (principal)
CPT/HCPCS: 85027

== ENCOUNTER → 2018-03-04 | Outpatient (REF) | payer MEDICARE, MEDICAID ==
[2018-03-04 12:58] LABS: HEMATOCRIT 29.1 % (36.0-47.0); MEAN CORPUSCULAR HEMOGLOBIN 27.3 pg (27.0-33.0); MEAN CORPUSCULAR HGB CONC 30.9 g/dl (32.0-36.5); MEAN CORPUSCULAR VOLUME 88.2 fl (80.0-96.0); PLATELET COUNT, AUTOMATED 242 10^3/uL (150-450); WHITE BLOOD COUNT 6.7 10^3/uL (4.0-10.0)
== END ==
DX: D64.9 Anemia, unspecified (principal)
CPT/HCPCS: 85027